=== PATIENT | female | born 1935 | race Caucasian/White ===

== ENCOUNTER 2016-02-16 12:41 | Emergency (ER) | payer MEDICARE ==
[~2016-02-16] VITALS: Ht 175.3 cm; Wt 89.4 kg
[~2016-02-16 12:41] MED LIST: ATEN25TA PO; DESV50TA PO; GLIP10TA20 PO; GLIP5TAB22 PO; HYDR-2762 PO; HYDR25TA9 PO; LEVO250T25 PO; METF10002 PO; PROAIR HFA8.5 GM INH
[2016-02-16 13:13] VITALS: BP 204/89
[2016-02-16] MEDS ORDERED: OXYCODONE/APAP 5/325 TABLET. PO ONE (13:45)
--- NOTE | 2016-02-16 14:29 | RAD ---
EXAM: Thoracic spine, 3 views. HISTORY: Fall. COMPARISON: CT dated 11/24/2015. FINDINGS: Frontal, lateral and swimmer's views of the thoracic spine are obtained. There is a severe T12 compression fracture, stable compared to the prior study. There is degenerative change throughout the thoracic spine. There are cardiac pacemaker leads in expected position. IMPRESSION: 1. Severe T12 compression fracture, stable in appearance. 2. Multilevel degenerative change.
--- NOTE | 2016-02-16 15:14 | ACF ---
Admission Forms Criteria Admission Criteria Met?: Yes AGUILA BRADY Feb 16, 2016 15:13
--- NOTE | 2016-02-16 15:40 | PHYS DOC ---
Past Medical History Past Medical History: CAD, Dementia, Diabetes-Type II, Hypertension Additional Past Medical Histor: Bradycardia Past Surgical History: Cholecystectomy, Hysterectomy, Pacemaker, Tubal ligation , Other Additional Past Surgical Histo: Pacemaker 2009, Hernia Alcohol Use: None Drug Use: Opiates Adult General Chief Complaint Chief Complaint: BACK PAIN OR INJURY HPI HPI 80-year-old female with chronic back pain who takes hydrocodone at home for pain presents with uncontrolled pain in her back. She states the hydrocodone just doesn't seem to be working. She states she is able to get around on her walker which is normal for her but it has been causing quite a bit more pain. She states she has a known compression fracture that's caused her a lot of problems. In fact, she is been hospitalized for this in the past. She denies any radicular symptoms. She has not had any bowel or bladder incontinence. [] Review of Systems Review of Systems Constitutional: Denies fever or chills [] Eyes: Denies change in visual acuity, redness, or eye pain [] HENT: Denies nasal congestion or sore throat [] Respiratory: Denies cough or shortness of breath [] Cardiovascular: No additional information not addressed in HPI [] GI: Denies abdominal pain, nausea, vomiting, bloody stools or diarrhea [] : Denies dysuria or hematuria [] Musculoskeletal: Per history of present illness] Integument: Denies rash or skin lesions [] Neurologic: Denies headache, focal weakness or sensory changes [] Endocrine: Denies polyuria or polydipsia [] Current Medications Current Medications Current Medications Medications (Trade) Dose Ordered Sig/[facility] Start Time Stop Time Status Last Admin Dose Admin Oxycodone/ Acetaminophen (Percocet 5/325) 2 tab 1X ONCE 02/16/16 13:45 02/16/16 13:46 DC 02/16/16 13:44 2 TAB Allergies Allergies Allergies Coded Allergies Type Severity Reaction Last Updated Verified No Known Drug Allergies 06/11/13 No Physical Exam Physical Exam Constitutional: Well developed, well nourished, mild to moderate distress, non- toxic appearance. [] HENT: Normocephalic, atraumatic, bilateral external ears normal, oropharynx moist, no oral exudates, nose normal. [] Eyes: PERRLA, EOMI, conjunctiva normal, no discharge. [] Neck: Normal range of motion, no tenderness, supple, no stridor. [] Cardiovascular:Heart rate regular rhythm, no murmur [] Lungs & Thorax: Bilateral breath sounds clear to auscultation [] Abdomen: Bowel sounds normal, soft, no tenderness, no masses, no pulsatile masses. [] Skin: Warm, dry, no erythema, no rash. [] Back: Mid back tenderness no crepitus no step-off. [] Extremities: No tenderness, no cyanosis, no clubbing, ROM intact, no edema. [] Neurologic: Alert and oriented X 3, normal motor function, normal sensory function, no focal deficits noted. [] Psychologic: Affect normal, judgement normal, mood normal. [] Current Patient Data Vital Signs Vital Signs Date Time Temp Pulse Resp B/P Pulse Ox O2 Delivery O2 Flow Rate FiO2 02/16/16 15:44 20 97 Room Air 02/16/16 13:13 98.4 73 204/89 98.4 EKG EKG [] Radiology/Procedures Radiology/Procedures [] Impressions: PROCEDURE: THORACIC SPINE 3V EXAM: Thoracic spine, 3 views. HISTORY: Fall. COMPARISON: CT dated 11/24/2015. FINDINGS: Frontal, lateral and swimmer's views of the thoracic spine are obtained. There is a severe T12 compression fracture, stable compared to the prior study. There is degenerative change throughout the thoracic spine. There are cardiac pacemaker leads in expected position. IMPRESSION: 1. Severe T12 compression fracture, stable in appearance. 2. Multilevel degenerative change. Course & Med Decision Making Course & Med Decision Making Pertinent Labs and Imaging studies reviewed. (See chart for details) [ED course: Evaluation reveals a 80-year-old female in mild to moderate distress secondary to back pain. Her hydrocodone was not working at home. I gave her 2 Percocet during her stay in the department here which she said made a remarkable difference and she feels a lot better. We discussed the possibility of staying in the hospital but she did not want to do that. I offered to provide her with some Percocet to take at home but she would need to follow up with her primary care physician for long-term alteration in her pain management plan.] Dragon Disclaimer Dragon Disclaimer This electronic medical record was generated, in whole or in part, using a voice recognition dictation system. Departure Departure Impression: Primary Impression: Chronic back pain greater than 3 months duration Additional Impression: Compression fracture of body of thoracic vertebra Disposition: 01 HOME, SELF-CARE Condition: IMPROVED Referrals: SANJIV DAVIS MD (PCP) Patient Instructions: Back Pain, Adult, Back, Compression Fracture, Chronic Back Pain Additional Instructions: Thank you for allowing us to participate in your care today. Followup with your primary care physician in 3 days if your symptoms do not improve. Return to the emergency department you have any new or concerning findings. This should be evaluated by the primary care physician and any necessary consulting services for continued management within a few days after discharge. Return to emergency room if you have any new or concerning symptoms including but not limited to fever, chills, nausea, vomiting, intractable pain, any new rashes, chest pain, shortness of air, uncontrolled bleeding, difficulty breathing, and/or vision loss. You may have been prescribed medication that can change in your level of thinking and ability to operate machinery. These medications include hydrocodone and Ativan. Also, Benadryl has been known to do this as well. Be sure to check with your pharmacist and ask if the medications you've prescribed can affect your level of consciousness. I recommend not operating heavy machinery or driving while on medication such as these. Scripts Oxycodone/Apap 5-325 (Percocet 5-325 Mg Tablet)1 Each Tablet1 Tab PO PRN Q6HRS PRN PAIN #30 TAB Prov:AZAEL HURTADO DO 02/16/16 Problem Qualifiers AZAEL HURTADO DO Feb 16, 2016 15:40
[2016-02-16] MEDS ORDERED: OXYC-323 PO (16:06)
== END 2016-02-16 16:25 | disposition home or self-care (01) ==
LOC: ER 12:41
DX: G89.29 Other chronic pain (principal); M48.54XG Collapsed vertebra, not elsewhere classified, thoracic region, subsequent encounter for fracture with delayed healing; I25.10 Atherosclerotic heart disease of native coronary artery without angina pectoris; I11.9 Hypertensive heart disease without heart failure; E11.9 Type 2 diabetes mellitus without complications; F11.10 Opioid abuse, uncomplicated; Z95.0 Presence of cardiac pacemaker
CPT/HCPCS: 72072; 99284

== ENCOUNTER 2016-04-12 09:29 | Inpatient (IN) | payer MEDICARE ==
[~2016-04-12] VITALS: Ht 172.7 cm; Wt 107.1 kg
[~2016-04-12 09:29] MED LIST changes: +HYDR-2868 PO; +OXYC-323 PO
[2016-04-12 10:40] VITALS: BP 120/63
--- NOTE | 2016-04-12 10:44 | PDOC ---
Infectious Disease Note Objective Assessment Left foot wound with exposed bone DM Edema HTN Debility Plan Plan of Care cbc, cmp, sed rate bone scan leg elevation meropenem and vanc TULIO MURILLO MD Apr 12, 2016 10:44
[2016-04-12] MEDS ORDERED: MEROPENEM 500 MG in IV NORMAL SALINE 50ML 50 ML IV ONE (11:00)
[2016-04-12] MEDS ORDERED: VANCOMYCIN 2 GM in IV NORMAL SALINE 500ML BAG 500 ML IV ONE (11:00)
[2016-04-12] MEDS ORDERED: ACETAMINOPHEN 325 MG TABLET. PO PRN (12:30)
[2016-04-12] MEDS ORDERED: DEXTROSE 50% 25 GM / 50ML DISP.SYRIN. IV PRN (12:30)
[2016-04-12] MEDS ORDERED: ONDANSETRON PF 4 MG/2 ML VIAL. IV PRN (12:30)
[2016-04-12 12:50] LABS: BASO % 1 % (0-3); EOS % 2 % (0-3); HEMATOCRIT 33.9 % (36.0-47.0); HEMOGLOBIN 10.5 g/dL (12.0-15.5); LYMPH # 1.5 x10^3/uL (1.0-4.8); LYMPH % 26 % (24-48); MEAN CORPUSCULAR HEMOGLOBIN 26 pg (25-35); MEAN CORPUSCULAR HGB CONC 31 g/dL (31-37); MEAN CORPUSCULAR VOLUME 84 fL (79-100); MONO % 6 % (0-9); NEUT % 65 % (31-73); PLATELET COUNT 286 x10^3/uL (140-400); RED BLOOD COUNT 4.04 x10^6/uL (3.50-5.40); RED CELL DISTRIBUTION WIDTH 17.8 % (11.5-14.5); WHITE BLOOD COUNT 5.9 x10^3/uL (4.0-11.0)
[2016-04-12] MEDS: HYDROCHLOROTHIAZIDE 25 MG TABLET PO SCH (13:00)
[2016-04-12] MEDS ORDERED: HYDRALAZINE 25 MG TABLET PO SCH (13:00)
[2016-04-12] MEDS: ATENOLOL 25 MG TABLET PO SCH (13:00)
[2016-04-12 13:13] LABS: ALBUMIN 2.7 g/dL (3.4-5.0); ALBUMIN/GLOBULIN RATIO 0.6 (1.0-1.7); CALCIUM 9.1 mg/dL (8.5-10.1); CREATININE 1.2 mg/dL (0.6-1.0); GFR 43.4; POTASSIUM 3.8 mmol/L (3.5-5.1); TOTAL BILIRUBIN 0.4 mg/dL (0.2-1.0); TOTAL PROTEIN 7.4 g/dL (6.4-8.2)
[2016-04-12] MEDS: VANCOMYCIN PER PHARMACY MC PRN (13:39)
[2016-04-12 15:06] VITALS: BP 122/59
--- NOTE | 2016-04-12 15:50 | RAD ---
3 phase bone scan of the feet 04/12/2016 Clinical history: Left foot wound for one month. The patient has diabetes. Technique: After the intravenous administration of 25.4 mCi of technetium 99m MDP, flow and immediate blood pool imaging of both feet and ankles was performed using the gamma camera. Delayed images were obtained at 3 hours. Findings: Comparison is made to radiographs of the left foot dated 04/05/2016. Increased flow and blood pool to the posterior aspect of the left foot is seen compared to the right. Increased activity is seen on the delayed images involving the posterior aspect of the left calcaneus. These bone scan findings are positive and are concerning for osteomyelitis. Impression: Positive 3 phase bone scan with abnormal activity seen involving the posterior aspect of the left calcaneus concerning for osteomyelitis.
[2016-04-12] MEDS: INSULIN ASPART 300 UNITS/3 ML INSULN.PEN SQ SCH (17:00)
--- NOTE | 2016-04-12 18:20 | CONS ---
DATE OF CONSULTATION: 04/12/2016 REFERRING PHYSICIAN: Dr. Art. REASON FOR CONSULTATION: Diabetic foot infection with exposed bone. HISTORY OF PRESENT ILLNESS: This is a 80-year-old female who evidently had fallen at home in November and to try to open the door, she had to drag herself because of rug bound to the foot. She was then admitted to the senior living facility and at some point there became a wound on the left calcaneum. Since then the wound has been progressively getting worse. She did not see anybody until a week ago. She came to the wound care center and then she again had a visit and was admitted for exposed bone. The patient denies any fever, denies any nausea, vomiting, diarrhea, chest pain, shortness of breath, abdominal pain, urinary symptoms or bowel symptoms. PAST MEDICAL HISTORY: Positive for diabetes mellitus, hypertension, debility. The patient has a history of arrhythmia with pacemaker in place. PAST SURGICAL HISTORY: Has had cholecystectomy, hysterectomy, hernia repair done and breast biopsies done. SOCIAL HISTORY: Negative for smoking, alcohol use, drug use. ALLERGIES: No known drug allergies, although she did develop rash after Augmentin that she received last week from Dr. Bashir. REVIEW OF SYSTEMS: As per HPI. All other systems reviewed and negative. CURRENT MEDICATIONS: Reviewed. PHYSICAL EXAMINATION: GENERAL: Alert, oriented female, not in any distress. VITAL SIGNS: Stable. HEENT: Both pupils are round and reactive. No conjunctival lesion. No lesion in the mouth. NECK: Supple, no JVD, no lymphadenopathy. LUNGS: Clear. HEART: S1, S2 regular. ABDOMEN: Benign. EXTREMITIES: 3+ pitting edema present bilaterally. The patient does have a wound on the left calcaneum with exposed bone with drainage from the wound. The patient does have a good dorsalis pedis palpable. NEUROLOGIC: Intact, although very weak and debilitated. LABORATORY DATA: Last laboratory data were from November. X-ray done few days ago of the foot, which was unremarkable for any obvious osteomyelitis. Laboratory data today's are pending. IMPRESSION: 1. Left calcaneal infected wound with exposed bone. 2. Diabetes. 3. Hypertension. 4. Bilateral 3+ pitting edema. 5. Noncompliance. PLAN: Recommend we would get CBC, CMP, sed rate, BNP, start on vancomycin and meropenem. Supportive care, off load. Since cannot do MRI because of the pacemaker, we may do CT or bone scan and will continue to follow. Detailed discussion done with the patient and the patient's daughter at the bedside. Thank you very much, Dr. Art for giving me the opportunity to participate in this patient's care. TULIO MURILLO MD DR: JESÚS/yuri JOB#: [id number] / [id number]
[2016-04-12] MEDS: GLIPIZIDE ER 5 MG TAB.ER.24 PO SCH (18:28)
[2016-04-12] MEDS: METFORMIN 1,000 MG TABLET PO SCH (18:28)
--- NOTE | 2016-04-12 18:32 | PDOC ---
Provider Note Provider Note See admission H&P dictation #[id number] Impression: 1. Left calcaneal osteomyelitis: 2. DM2 with neuropathy: 3. Hypertension: SANJIV DAVIS MD Apr 12, 2016 18:32
[2016-04-12 19:20] VITALS: BP 159/73
[2016-04-12] MEDS: MEROPENEM 500 MG in IV NORMAL SALINE 50ML 50 ML IV SCH (22:01)
[2016-04-12 23:01] VITALS: BP 150/74
[2016-04-13] VITALS (13 sets, daily range): BP systolic 109–161; BP diastolic 41–77
[2016-04-13] MEDS: MEROPENEM 500 MG in IV NORMAL SALINE 50ML 50 ML IV SCH ×3 (05:53→20:52)
[2016-04-13] MEDS: HYDROCODONE/APAP 5/325MG TABLET. PO PRN ×2 (06:10→18:37)
--- NOTE | 2016-04-13 08:01 | PDOC ---
TCOM NOTE This is transcutaneous oximetry assessment on patient Savanna Jara performed on 04/12 This is a 80-year-old patient admitted from the wound care center for diabetic Lawrence 3 ulceration to the left hindfoot with clinical evidence of osteomyelitis. Transcutaneous oximetry is performed in the hospital bed. Patient reports no significant dyspnea. She is not on supplemental O2. Past medical history positive for diabetes with neuropathy, hypertension and history of arrhythmia Past surgical history includes cholecystectomy, hysterectomy, hernia repair and pacemaker placement. Social history negative for tobacco, alcohol or drug use. Medications and allergies as noted and reviewed in the chart. Vital signs were noted be stable at the time of oximetry assessment. Respirations were noted be nondistressed and heart rhythm regular. Lower extremities did note pretibial edema. Transcutaneous oximetry assessment leads were placed as follows: Leads 1 and 4 are placed laterally and medially at hindfoot infra malleolar locations, respectively. Leads 2 and 5 are placed at posterior ankle malleolar locations, laterally and medially, respectively. Leads 3 and 6 are placed at supramalleolar sites laterally and medially, respectively. Transcutaneous oximetry measurements while breathing room air at 1 yasmine are as follows: Lead #1 is 42 mmHg Lead #2 is 37 mmHg Lead #3 is 31 mmHg Lead $4 is 30 mmHg Lead #5 is 52 mmHg Lead #6 is 51 mmHg Transcutaneous oximetry measurements while breathing 100% oxygen at 1 yasmine are as follows: Lead #1 172 mmHg Lead #2 is 201 mmHg Lead #3 is 75 mmHg Lead #4 is 223 mmHg Lead #5 is 165 mmHg Lead #6 is 81 mmHg Transcutaneous oximetry measurements greater than 40 mmHg are considered adequate for wound healing. In this patient 3 of the 6 leads are less than 40 mmHg. Oxygen augmented readings in excess of 100 mm or mercury suggest positive benefits from adjunctive utilization of hyperbaric oxygen therapy. In this patient for the 6 leads demonstrated values in excess of 100 mm or mercury. These readings suggests patient's vascular status is tenuous to achieve wound healing and efforts to maximize blood flow are critical. If the patient does not demonstrate improvement then utilization of hyperbaric oxygen therapy is appropriate and may be necessary to achieve healing. LORNA ACHARYA DO Apr 13, 2016 08:01
--- NOTE | 2016-04-13 08:22 | PDOC ---
SUBJECTIVE Subjective Still with some left heel pain. Feeling better overall. Denies any shortness of breath. Still having loose stools. OBJECTIVE Vital Signs Vital Signs Date Time Temp Pulse Resp B/P Pulse Ox O2 Delivery O2 Flow Rate FiO2 04/13/16 07:00 98.0 72 18 128/65 91 Room Air 98.0 04/13/16 06:10 16 Room Air 04/13/16 03:03 97.7 69 18 161/77 96 Room Air 97.7 04/12/16 23:01 97.7 68 18 150/74 96 Room Air 97.7 04/12/16 20:00 Room Air 04/12/16 19:20 98.6 80 18 159/73 98 Room Air 98.6 04/12/16 15:06 97.5 69 16 122/59 91 Room Air 97.5 04/12/16 11:37 97.5 97.5 04/12/16 10:40 97.5 64 16 120/63 99 Room Air 97.5 04/12/16 10:40 97.5 64 16 120/63 99 Room Air 97.5 I & O Intake and Output 04/13/16 07:00 Intake Total 200 ml Output Total 300 ml Balance -100 ml Intake Oral 200 ml Output Urine Total 300 ml # Voids 4 # Bowel Movements 4 PHYSICAL EXAM Physical Exam General: No acute distress. Laying in bed. Mental status: Alert and oriented. Chest: Air movement: good. Auscultation: clear throughout Cardiovascular: Rate: normal. Rhythm: regular. Murmur: none. Abdomen: Bowel sounds: normal. Soft. Nondistended. Tenderness: nontender to palpation. No guarding. No rebound. Extremities: Positive pitting edema bilateral lower extremities. The left heel has a bandage on it. She is in a heel protector. There is less redness to the foot. ASSESSMENT/PLAN Assessment/Plan 1. Left calcaneal osteomyelitis: Vascular surgery consult for debridement. Bone scan showed osteomyelitis. Continue antibiotics per infectious disease. 2. DM2: Continue sliding scale insulin and home medications. Add Levemir 5 units this evening. 3. Hypertension: Remains elevated. We'll adjust medications. Add losartan. 4. Low back pain: Stable. 5. Lower extremity edema. Elevated BNP. We'll give Lasix IV to try and help with diuresis. 6. Diarrhea. C. difficile was negative. Start probiotic as she was on antibiotics recently. Problems: COMMENT Lab Laboratory Tests Test 04/12/16 10:54 04/12/16 12:30 04/12/16 12:35 04/12/16 16:46 Glucose (Fingerstick) 166mg/dL (70-99) 182mg/dL (70-99) Clostridium difficile Toxin (PCR) Negative (Negative) White Blood Count 5.9x10^3/uL (4.0-11.0) Red Blood Count 4.04x10^6/uL (3.50-5.40) Hemoglobin 10.5g/dL (12.0-15.5) Hematocrit 33.9% (36.0-47.0) Mean Corpuscular Volume 84fL (79-100) Mean Corpuscular Hemoglobin 26pg (25-35) Mean Corpuscular Hemoglobin Concent 31g/dL (31-37) Red Cell Distribution Width 17.8% (11.5-14.5) Platelet Count 286x10^3/uL (140-400) Neutrophils (%) (Auto) 65% (31-73) Lymphocytes (%) (Auto) 26% (24-48) Monocytes (%) (Auto) 6% (0-9) Eosinophils (%) (Auto) 2% (0-3) Basophils (%) (Auto) 1% (0-3) Neutrophils # (Auto) 3.8x10^3uL (1.8-7.7) Lymphocytes # (Auto) 1.5x10^3/uL (1.0-4.8) Monocytes # (Auto) 0.4x10^3/uL (0.0-1.1) Eosinophils # (Auto) 0.1x10^3/uL (0.0-0.7) Basophils # (Auto) 0.0x10^3/uL (0.0-0.2) Erythrocyte Sedimentation Rate 57 (0-25) Sodium Level 140mmol/L (136-145) Potassium Level 3.8mmol/L (3.5-5.1) Chloride Level 104mmol/L (98-107) Carbon Dioxide Level 29mmol/L (21-32) Anion Gap 7 (6-14) Blood Urea Nitrogen 28mg/dL (7-20) Creatinine 1.2mg/dL (0.6-1.0) Estimated GFR (Cockcroft-Gault) 43.4 BUN/Creatinine Ratio 23 (6-20) Glucose Level 157mg/dL (70-99) Calcium Level 9.1mg/dL (8.5-10.1) Total Bilirubin 0.4mg/dL (0.2-1.0) Aspartate Amino Transf (AST/SGOT) 22U/L (15-37) Alanine Aminotransferase (ALT/SGPT) 12U/L (14-59) Alkaline Phosphatase 145U/L (46-116) MC-Pxi-S-Type Natriuretic Peptide 11583sd/mL (0-449) Total Protein 7.4g/dL (6.4-8.2) Albumin 2.7g/dL (3.4-5.0) Albumin/Globulin Ratio 0.6 (1.0-1.7) Test 04/12/16 20:39 04/13/16 07:35 Glucose (Fingerstick) 208mg/dL (70-99) 155mg/dL (70-99) SANJIV DAVIS MD Apr 13, 2016 08:22
--- NOTE | 2016-04-13 08:38 | PDOC ---
Infectious Disease Note Subjective Subjective feeling better, leg elevation helping with swelling ROS ROS GEN: Denies fevers, chills, sweats HEENT: Denies blurred vision, sore throat CV: Denies chest pain RESP: Denies shortness of air, cough GI: Denies n/v/d NEURO: Denies confusion, dizziness MSK: Denies weakness, Vital Sign Vital Signs Vital Signs Date Time Temp Pulse Resp B/P Pulse Ox O2 Delivery O2 Flow Rate FiO2 04/13/16 07:00 98.0 72 18 128/65 91 Room Air 98.0 Physical Exam PHYSICAL EXAM GENERAL: NAD, Alert HEENT: PERRL, OC/OP NECK: Supple, no JVD, no LN LUNGS: Clear HEART: S1S2, no gallop, no murmur ABD: Soft, NT, no organomegaly, no rebound EXT: edema, no cyanosis,, left calcaneal wound with exposed bone [employer]PER[employer]OR [employer]OS[employer] PROCESSING: Alert, oriented x 3, no focal neurologic deficit SKIN: No rash IV: ok Labs Lab Laboratory Tests Test 04/12/16 10:54 04/12/16 12:30 04/12/16 12:35 04/12/16 16:46 Glucose (Fingerstick) 166mg/dL (70-99) 182mg/dL (70-99) Clostridium difficile Toxin (PCR) Negative (Negative) White Blood Count 5.9x10^3/uL (4.0-11.0) Red Blood Count 4.04x10^6/uL (3.50-5.40) Hemoglobin 10.5g/dL (12.0-15.5) Hematocrit 33.9% (36.0-47.0) Mean Corpuscular Volume 84fL (79-100) Mean Corpuscular Hemoglobin 26pg (25-35) Mean Corpuscular Hemoglobin Concent 31g/dL (31-37) Red Cell Distribution Width 17.8% (11.5-14.5) Platelet Count 286x10^3/uL (140-400) Neutrophils (%) (Auto) 65% (31-73) Lymphocytes (%) (Auto) 26% (24-48) Monocytes (%) (Auto) 6% (0-9) Eosinophils (%) (Auto) 2% (0-3) Basophils (%) (Auto) 1% (0-3) Neutrophils # (Auto) 3.8x10^3uL (1.8-7.7) Lymphocytes # (Auto) 1.5x10^3/uL (1.0-4.8) Monocytes # (Auto) 0.4x10^3/uL (0.0-1.1) Eosinophils # (Auto) 0.1x10^3/uL (0.0-0.7) Basophils # (Auto) 0.0x10^3/uL (0.0-0.2) Erythrocyte Sedimentation Rate 57 (0-25) Sodium Level 140mmol/L (136-145) Potassium Level 3.8mmol/L (3.5-5.1) Chloride Level 104mmol/L (98-107) Carbon Dioxide Level 29mmol/L (21-32) Anion Gap 7 (6-14) Blood Urea Nitrogen 28mg/dL (7-20) Creatinine 1.2mg/dL (0.6-1.0) Estimated GFR (Cockcroft-Gault) 43.4 BUN/Creatinine Ratio 23 (6-20) Glucose Level 157mg/dL (70-99) Calcium Level 9.1mg/dL (8.5-10.1) Total Bilirubin 0.4mg/dL (0.2-1.0) Aspartate Amino Transf (AST/SGOT) 22U/L (15-37) Alanine Aminotransferase (ALT/SGPT) 12U/L (14-59) Alkaline Phosphatase 145U/L (46-116) GZ-Fcf-G-Type Natriuretic Peptide 53781ri/mL (0-449) Total Protein 7.4g/dL (6.4-8.2) Albumin 2.7g/dL (3.4-5.0) Albumin/Globulin Ratio 0.6 (1.0-1.7) Test 04/12/16 20:39 04/13/16 07:35 Glucose (Fingerstick) 208mg/dL (70-99) 155mg/dL (70-99) Objective Assessment Left foot wound with exposed bone DM Edema HTN Debility Plan Plan of Care cbc, cmp, sed rate bone scan + leg elevation meropenem and vanc TUILO MURILLO MD Apr 13, 2016 08:38
[2016-04-13] MEDS: HYDROCHLOROTHIAZIDE 25 MG TABLET PO SCH (08:48)
[2016-04-13] MEDS: GLIPIZIDE ER 5 MG TAB.ER.24 PO SCH ×2 (08:49→18:34)
[2016-04-13] MEDS: LOSARTAN POTASSIUM 50 MG TABLET. PO SCH (08:49)
[2016-04-13] MEDS: METFORMIN 1,000 MG TABLET PO SCH ×2 (08:49→18:33)
[2016-04-13] MEDS: FUROSEMIDE 20 MG/2 ML VIAL IVP SCH (08:49)
[2016-04-13] MEDS: HYDRALAZINE 25 MG TABLET PO SCH ×2 (08:55→20:47)
[2016-04-13] MEDS: ATENOLOL 25 MG TABLET PO SCH (08:55)
[2016-04-13] MEDS: INSULIN ASPART 300 UNITS/3 ML INSULN.PEN SQ SCH ×3 (09:08→17:00)
[2016-04-13] MEDS: ASCORBIC ACID 500 MG TABLET PO SCH ×2 (11:00→20:52)
[2016-04-13] MEDS: MULTIVITAMIN with MINERAL TABLET. PO SCH (11:00)
--- NOTE | 2016-04-13 11:33 | PDOC ---
Provider Note Provider Note Vascular Consult dictated Imp: Traumatic lt heel ulcer Intact arterial circulation Plan: Debride today ANJALI MOJICA MD Apr 13, 2016 11:33
[2016-04-13] MEDS: VANCOMYCIN 1.75 GM in IV NORMAL SALINE 500ML BAG 500 ML IV SCH (13:27)
[2016-04-13] MEDS ORDERED: SURGICEL FIBRILLAR 1X2 EACH. ONE (13:53)
[2016-04-13] MEDS ORDERED: LIDOCAINE 1% PF 30 ML VIAL. ONE (13:53)
[2016-04-13] MEDS ORDERED: IV RINGERS,LACTATED 1000ML 1,000 ML IV SCH (13:58)
[2016-04-13] MEDS ORDERED: LIDOCAINE 1% 1 ML SYRINGE. ID PRN (14:00)
[2016-04-13] MEDS ORDERED: FENTANYL PF 100 MCG/2 ML VIAL. IV PRN (14:00)
[2016-04-13] MEDS ORDERED: MORPHINE SULFATE 2 MG/ML DISP.SYRIN. IV PRN (14:00)
[2016-04-13] MEDS ORDERED: PROCHLORPERAZINE 10 MG/2 ML VIAL. IV PRN (14:00)
[2016-04-13] MEDS ORDERED: HYDROMORPHONE 2 MG/ML VIAL. IV PRN (14:00)
[2016-04-13] MEDS ORDERED: ONDANSETRON PF 4 MG/2 ML VIAL. IV PRN (14:00)
--- NOTE | 2016-04-13 14:45 | CONS ---
DATE OF CONSULTATION: 04/12/2016 ORTHOPEDIC CONSULTATION REASON FOR CONSULTATION: Left foot osteomyelitis. REFERRING PHYSICIAN: Dr. Art. HISTORY OF PRESENT ILLNESS: The patient is a 80-year-old female who has history of a fall and had to apparently drag herself along the ground to try to open her door and get help. She was subsequently admitted to a [place] [facility] facility and developed a wound on her left heel. This has been going on a couple of months and getting worse. She presented to the wound clinic recently and was admitted yesterday for severe tissue loss on her left heel and exposed bone. She denies any recent fever, chills or constitutional symptoms and indicates that she has been recently using a cushion to keep any pressure off the left heel. PAST MEDICAL HISTORY: Significant for diabetes mellitus, hypertension, and arrhythmias. PAST SURGICAL HISTORY: Significant for pacemaker implantation, cholecystectomy, hysterectomy, hernia repair and previous breast biopsies. ALLERGIES: NO ABSOLUTE MEDICATION ALLERGIES, BUT DOES INDICATE A RASH FROM AUGMENTIN. MEDICATIONS: List is reviewed. REVIEW OF SYSTEMS: Denies any focal weakness, numbness, tingling or radiating pain to the extremities, joint pain or swelling, instability. Denies any fever, chills, chest pain, shortness of breath, change in bowel or bladder habits. PHYSICAL EXAMINATION: EXTREMITIES: Examination of the left foot reveals a silver-dollar sized area of skin breakdown over the posterior aspect of the left heel becoming successively more deep at the central areas where there is exposed bone present. There is some devitalized tissue in the wound bed overall. She does seem to have warm distal extremities, but there is significant pitting edema present in the extremities and a palpable dorsalis pedis pulse. She has normal hindfoot, midfoot and forefoot motion bilaterally. Normal examination of the contralateral foot and ankle with intact sensation present in both lower extremities throughout. Good hip and ankle range of motion, alignment and stability bilaterally as well. IMAGING: Bone scan obtained today does show concern for osteomyelitis in the left calcaneus. X-rays from several days ago do not show any obvious bony abnormality. IMPRESSION: Left calcaneus wound with exposed bone centrally, diabetes and leg swelling with pitting edema. TREATMENT PLAN: Certainly, she needs and is receiving pressure relief from the central aspect of her wound and I would expect it needs debridement of the area and ongoing wound care. Although she does have palpable pulses, I am somewhat concerned with her capability vascularly as far as healing, if that can be approved in anyway particularly because tissue coverage over this area is going to be quite difficult to reinstate either by ingrowth or surgically. Nevertheless, there is really no further vascular intervention indicated. I think we would proceed with debridement and probable use of a wound VAC to see if we can get some tissue to granulate over the area of the heel. I did tell her, however, this is a very difficult problem to achieve healing this area especially with the bony infection and just no good way to try to achieve tissue coverage other than very slowly with careful control of her diabetes and avoidance of pressure on the wound. All of her questions were answered at this time. We will just await any further vascular evaluation and possible surgical debridement of the left heel. SHALINI MACDONALD MD DR: POOJA/yuri JOB#: [id number] / [id number]
[2016-04-13] MEDS ORDERED: PROPOFOL 20 ML IV ONE (15:02)
[2016-04-13] MEDS ORDERED: LIDOCAINE 2% 100 MG/5 ML DISP.SYRIN. ONE (15:02)
[2016-04-13] MEDS ORDERED: SEVOFLURANE 16 TO 30 MINUTES. IH ONE (15:29)
[2016-04-13] MEDS ORDERED: ONDANSETRON PF 4 MG/2 ML VIAL. ONE (15:39)
--- NOTE | 2016-04-13 16:20 | PDOC ---
BRIEF OPERATIVE NOTE Date: Apr 13, 2016 Pre-Op Diagnosis Left heel open wound with osteomyelitis Post-Op Diagnosis SAme Procedure Performed Left heel excision debridement of skin, soft tissue, and bone Surgeon Dr. Esparza Cancer Program Director none Anesthesia Type: General Blood Loss 25 cc Specimens Obtained Culture of the left calcaneous Findings Debrided to healthy soft tissue and bone, good bleeding noted from skin edges. Wound size: 5 x 6 x 1.5 cm Complications none YARIEL ESPARZA MD Apr 13, 2016 16:20
[2016-04-13] MEDS: FENTANYL PF 100 MCG/2 ML VIAL. IV PRN ×2 (16:29→17:07)
[2016-04-13] MEDS: LACTOBACILLUS ACIDOPH & BULGAR 1 TABLET. PO SCH (18:33)
[2016-04-13 19:24] LABS: CALCIUM 8.5 mg/dL (8.5-10.1); CREATININE 1.2 mg/dL (0.6-1.0); GFR 43.4; POTASSIUM 3.4 mmol/L (3.5-5.1)
--- NOTE | 2016-04-13 20:52 | OP ---
DATE OF SURGERY: 04/13/2016 PREOPERATIVE DIAGNOSIS: Osteomyelitis of the left heel. POSTOPERATIVE DIAGNOSIS: Osteomyelitis of the left heel. PROCEDURE: Excisional debridement of the left heel, including skin soft tissue, and bone. SURGEON: Tanner Esparza M.D. ANESTHESIA: General anesthesia with LMA. INDICATION: The patient is a 80-year-old female, who has had a history of a fall and subsequent wound to the left heel. She has been undergoing local wound care over the past several months, but the wound is not healing and there was exposed bone. A bone scan demonstrated concern for osteomyelitis. She did have a palpable pulse. The patient agreed to debridement of the left heel wound. DESCRIPTION OF PROCEDURE: Consent was obtained prior to taking the patient to the operating room. The patient was taken to the operating room and remained on her hospital bed. The left lower leg was prepped and draped in the standard sterile fashion with Betadine. Anesthesia intubated the patient and provided anesthesia with LMA. Preoperative antibiotics were given. A timeout was performed to verify the correct patient and procedure. Soft tissue was incised around the portion of the left heel ulcer. Soft tissue and muscle were removed with sharp debridement using a 10 blade. The soft tissue was resected back until there was bleeding noted. A rongeur was used to remove part of the calcaneus. The section of the bone was also sent for culture. The bone and the tissue was debrided back until there was healthy-appearing tissue, although there was some concern for infection tracking along her tendon. The wound was thoroughly irrigated with antibiotic solution. Electrocautery was used to obtain hemostasis. The wound was then packed with Xeroform, gauze, and then wrapped with an Carlos wrap and Kerlix. All sponge, instrument, and needle counts were accurate. The patient was extubated and taken to the PACU for further recovery. FINDINGS: The wound was debrided back to healthy tissue and healthy bone. The size of the defect was approximately 5 x 6 x 1.5 cm with 1.5 cm in depth. COMPLICATIONS: None. DRAINS: None. ESTIMATED BLOOD LOSS: 25 mL. TANNER ESPRAZA MD DR: CELSO/yuri JOB#: [id number] / [id number] MTDD
[2016-04-13] MEDS: INSULIN DETEMIR 300 UNITS/3 ML INSULN.PEN. SQ SCH (21:02)
[2016-04-14] MEDS: HYDROCODONE/APAP 5/325MG TABLET. PO PRN ×4 (02:34→19:33)
[2016-04-14 03:00] VITALS: BP 152/56
--- NOTE | 2016-04-14 04:53 | CONS ---
DATE OF CONSULTATION: 04/13/2016 DIAGNOSIS: Traumatic, necrotic ulcer, left heel. HISTORY OF PRESENT ILLNESS: This is a 80-year-old female who fell and then she was dragging herself across her floor. She injured and developed a sore on her left heel, which has not healed and became necrotic. She was admitted for further care. The patient gives no prior history of arterial interventions. She has no history of claudication. Not a diabetic. She has not had bypass surgery; I believe she does have a pacemaker. No history of stroke. Nonsmoker. MEDICATIONS: See reconciliation list. PHYSICAL EXAMINATION: GENERAL: Pleasant female, in no severe distress, who is alert and oriented, 2+ radial pulses. CARDIOVASCULAR: Heart rate is regular, nonlabored respirations. EXTREMITIES: She has easily palpable dorsalis pedis pulses bilaterally. No sores on the right foot. She has got a necrotic ulcer on the posterior aspect of the left heel. IMPRESSION: Necrotic ulcer, traumatic, left heel. PLAN: Debridement later today by Dr. Esparza. ANJALI MOJICA MD DR: KIEL/yuri JOB#: [id number] / [id number]
[2016-04-14] MEDS: MEROPENEM 500 MG in IV NORMAL SALINE 50ML 50 ML IV SCH ×3 (05:59→21:30)
[2016-04-14 07:00] VITALS: BP 130/60
[2016-04-14] MEDS: GLIPIZIDE ER 5 MG TAB.ER.24 PO SCH ×2 (08:00→17:00)
[2016-04-14] MEDS: INSULIN ASPART 300 UNITS/3 ML INSULN.PEN SQ SCH ×3 (08:00→17:00)
[2016-04-14] MEDS: LACTOBACILLUS ACIDOPH & BULGAR 1 TABLET. PO SCH ×3 (08:30→17:46)
[2016-04-14] MEDS: ASCORBIC ACID 500 MG TABLET PO SCH ×2 (08:30→21:00)
[2016-04-14] MEDS: MULTIVITAMIN with MINERAL TABLET. PO SCH (08:31)
[2016-04-14] MEDS: METFORMIN 1,000 MG TABLET PO SCH ×2 (08:31→17:45)
[2016-04-14] MEDS: HYDRALAZINE 25 MG TABLET PO SCH ×2 (08:32→21:29)
[2016-04-14] MEDS: LOSARTAN POTASSIUM 50 MG TABLET. PO SCH (08:32)
[2016-04-14] MEDS: HYDROCHLOROTHIAZIDE 25 MG TABLET PO SCH (08:33)
[2016-04-14] MEDS: FUROSEMIDE 20 MG/2 ML VIAL IVP SCH (08:33)
[2016-04-14] MEDS: ATENOLOL 25 MG TABLET PO SCH (08:33)
--- NOTE | 2016-04-14 08:34 | PDOC ---
SUBJECTIVE Subjective Having a little bit of pain but overall better in the left heel. Denies any shortness of breath. Still with loose stools. Eating okay. No blood in her stools. OBJECTIVE Vital Signs Vital Signs Date Time Temp Pulse Resp B/P Pulse Ox O2 Delivery O2 Flow Rate FiO2 04/14/16 07:29 18 Room Air 04/14/16 07:00 97.3 54 16 130/60 90 Room Air 97.3 04/14/16 06:29 18 Room Air 04/14/16 03:00 98.5 65 18 152/56 92 Room Air 98.5 04/14/16 02:34 18 Room Air 04/13/16 23:00 97.3 62 18 135/67 93 Room Air 97.3 04/13/16 21:00 63 18 146/66 95 Room Air 04/13/16 20:47 51 135/82 04/13/16 20:00 74 18 111/72 95 Room Air 04/13/16 19:59 Room Air 04/13/16 19:30 59 18 109/41 91 Room Air 04/13/16 19:00 70 18 128/60 91 Room Air 04/13/16 18:37 18 Room Air 04/13/16 18:30 98.0 71 18 125/62 92 Room Air 98.0 04/13/16 18:15 55 18 112/45 92 Room Air 04/13/16 18:00 63 18 144/66 90 Room Air 04/13/16 17:45 58 18 125/63 92 Room Air 04/13/16 17:30 98.1 60 18 128/61 95 Room Air 98.1 04/13/16 17:07 16 Nasal Cannula 04/13/16 16:54 56 18 125/60 98 Room Air 04/13/16 16:53 16 99 Nasal Cannula 2.0 04/13/16 16:40 96 Nasal Cannula 2.0 04/13/16 16:39 54 16 113/59 98 Room Air 04/13/16 16:29 16 92 Simple Mask 04/13/16 16:24 54 16 91/50 96 Room Air 04/13/16 16:18 58 16 112/52 100 Room Air 04/13/16 16:04 97.2 59 16 116/49 96 Simple Mask 10 97.2 04/13/16 14:17 98.1 66 10 174/74 95 Room Air 98.1 04/13/16 11:00 97.9 60 18 137/57 95 Room Air 97.9 04/13/16 08:55 72 128/65 04/13/16 08:55 72 128/65 04/13/16 08:49 72 128/65 I & O Intake and Output 04/14/16 07:00 Intake Total 900 ml Balance 900 ml Intake Oral 0 ml Other 900 ml # Voids 2 PHYSICAL EXAM Physical Exam General: No acute distress. Laying in bed. Mental status: Alert and oriented. Chest: Air movement: good. Auscultation: clear throughout Cardiovascular: Rate: normal. Rhythm: regular. Murmur: none. Abdomen: Bowel sounds: normal. Soft. Nondistended. Tenderness: nontender to palpation. No guarding. No rebound. Extremities: 1+ pitting edema bilateral lower extremities. The left heel has a dressing on it. She is in a heel protector. There is less redness to the foot. ASSESSMENT/PLAN Assessment/Plan 1. Left calcaneal osteomyelitis: Postop day #1 status post debridement. Continue per vascular surgery and infectious disease. She'll need 6 weeks of IV antibiotics. Discussed with Dr. Marroquin. She'll also likely need placement in longterm for wound care and IV antibiotics. PICC line. 2. DM2: Continue sliding scale insulin and home medications. Add Levemir 5 units in the evening. May need to increase. She's been resistant to using home insulin in the past. 3. Hypertension: Continue to monitor and make adjustments as needed.. Added losartan. 4. Low back pain: Stable. 5. Lower extremity edema. Elevated BNP. We'll give Lasix IV to try and help with diuresis. Continue to monitor electrolytes. 6. Diarrhea. C. difficile was negative. Start probiotic as she was on antibiotics recently. May need to start something like Questran to help with the diarrhea. 7. Disposition: Patient will likely need longterm. She could possibly go tomorrow if arrangements can be made. Problems: COMMENT Lab Laboratory Tests Test 04/13/16 11:03 04/13/16 16:34 04/13/16 19:00 04/13/16 20:57 Glucose (Fingerstick) 159mg/dL (70-99) 87mg/dL (70-99) 132mg/dL (70-99) Sodium Level 143mmol/L (136-145) Potassium Level 3.4mmol/L (3.5-5.1) Chloride Level 106mmol/L (98-107) Carbon Dioxide Level 28mmol/L (21-32) Anion Gap 9 (6-14) Blood Urea Nitrogen 28mg/dL (7-20) Creatinine 1.2mg/dL (0.6-1.0) Estimated GFR (Cockcroft-Gault) 43.4 Glucose Level 116mg/dL (70-99) Calcium Level 8.5mg/dL (8.5-10.1) Test 04/14/16 07:31 04/14/16 07:57 Glucose (Fingerstick) 64mg/dL (70-99) 79mg/dL (70-99) SANJIV DAVIS MD Apr 14, 2016 08:34
--- NOTE | 2016-04-14 08:48 | PDOC ---
Infectious Disease Note Subjective Subjective feeling better, leg elevation helping with swelling ROS ROS GEN: Denies fevers, chills, sweats HEENT: Denies blurred vision, sore throat CV: Denies chest pain RESP: Denies shortness of air, cough GI: Denies n/v/d NEURO: Denies confusion, dizziness MSK: Denies weakness, joint pain/swelling Vital Sign Vital Signs Vital Signs Date Time Temp Pulse Resp B/P Pulse Ox O2 Delivery O2 Flow Rate FiO2 04/14/16 08:33 130/60 04/14/16 08:32 54 04/14/16 07:29 18 Room Air 04/14/16 07:00 97.3 90 97.3 04/13/16 16:53 2.0 Physical Exam PHYSICAL EXAM GENERAL: NAD, Alert HEENT: PERRL, OC/OP NECK: Supple, no JVD, no LN LUNGS: Clear HEART: S1S2, no gallop, no murmur ABD: Soft, NT, no organomegaly, no rebound EXT: No edema, no cyanosis DOCUMENT REVIEWER: Alert, oriented x 3, no focal neurologic deficit SKIN: No rash IV: ok Labs Lab Laboratory Tests Test 04/13/16 11:03 04/13/16 16:34 04/13/16 19:00 04/13/16 20:57 Glucose (Fingerstick) 159mg/dL (70-99) 87mg/dL (70-99) 132mg/dL (70-99) Sodium Level 143mmol/L (136-145) Potassium Level 3.4mmol/L (3.5-5.1) Chloride Level 106mmol/L (98-107) Carbon Dioxide Level 28mmol/L (21-32) Anion Gap 9 (6-14) Blood Urea Nitrogen 28mg/dL (7-20) Creatinine 1.2mg/dL (0.6-1.0) Estimated GFR (Cockcroft-Gault) 43.4 Glucose Level 116mg/dL (70-99) Calcium Level 8.5mg/dL (8.5-10.1) Test 04/14/16 07:31 04/14/16 07:57 Glucose (Fingerstick) 64mg/dL (70-99) 79mg/dL (70-99) Objective Assessment Left foot wound with exposed bone s/p I and D DM Edema HTN Debility Plan Plan of Care picc leg elevation meropenem and vanc TULIO MURILLO MD Apr 14, 2016 08:48
--- NOTE | 2016-04-14 09:53 | HP ---
ADMIT DATE: 04/12/2016 ATTENDING PHYSICIAN: Dr. Sanjiv Davis. CHIEF COMPLAINT: Left heel ulcer with probable osteomyelitis. HISTORY OF PRESENT ILLNESS: The patient is a 80-year-old female who has had a pressure sore on her left posterior heel for the last couple of months. She was being seen in wound care and had an appointment on the day of admission when debridement was done at that time, it was noted that the wound extended down to the bone of the calcaneus posteriorly at the heel. Due to the infection extending to the bone, it was decided she needed to be admitted for probable osteomyelitis to receive definitive treatment as well as IV antibiotics. She denies any fevers. She does have some pain in the area, but generally has decreased feeling in her feet. She has had slightly more increased swelling in the lower legs. PAST MEDICAL HISTORY: Significant for hypertension, osteoarthritis, diabetes mellitus type 2, which is poorly controlled, depression, nocturnal hypoxia, diabetic neuropathy. PAST SURGICAL HISTORY: Pacemaker placement, cholecystectomy, hysterectomy, hernia repair, bilateral breast biopsies, tubal ligation. SOCIAL HISTORY: The patient has smoked remotely in the past and did not smoke for a very long time. She last smoked approximately 50 years ago. She denies any alcohol or illicit drug use. She lives at home. She does have a sister who is helping out with care at times. FAMILY HISTORY: Heart disease in her mother and father. ALLERGIES TO MEDICATIONS: SHE IS ALLERGIC TO AUGMENTIN. MEDICATIONS: At the time of admission include; albuterol HFA 2 puffs q.i.d. p.r.n., atenolol 25 mg p.o. daily, glipizide extended release 10 mg p.o. b.i.d., hydralazine 25 mg p.o. daily, hydrochlorothiazide 25 mg p.o. daily, Empire 7.5/325 one p.o. every 6 hours p.r.n., metformin 1000 mg p.o. b.i.d. REVIEW OF SYSTEMS: The patient denies any fevers. No difficulty swallowing. She denies any cough or shortness of breath. She denies any chest pain or palpitations. She denies any nausea, vomiting. She has chronic diarrhea that is unchanged. There is no blood in the stool. She denies any dysuria or hematuria. She has lower extremity swelling, which is chronic for her. She has noted some red zurita on her lower legs over the last couple of weeks. There is no generalized redness. She does have some pain in the left lower leg/foot. Her mood has been stable without anti-depressive medications. PHYSICAL EXAMINATION: VITAL SIGNS: At the time of admission, temperature 97.5, pulse 64, respiratory rate 16, blood pressure 120/63, O2 sat 99% on room air. GENERAL: The patient is well developed, nourished female in no acute distress. She is alert and oriented. HEENT: The pupils are equal and round. The extraocular motions are intact. Sclerae are anicteric. Oropharynx is pink and moist. NECK: Without JVD. CHEST: Clear to auscultation bilaterally with okay air movement. CARDIOVASCULAR: The heart has regular rate and rhythm without murmur. ABDOMEN: Positive bowel sounds, soft, nontender, no guarding or rebound. EXTREMITIES: There is 2+ edema in the bilateral lower extremities. There is some petechiae on the lower legs, some of them are in a linear fashion where she probably had socks cutting into the skin. There is some redness to the left foot. She currently has a bandage over the posterior heel in the area of the wound. There is some tenderness to palpation with warmth on the foot on the left side. The right side is nontender and has decreased sensation. She does have a palpable dorsalis pedis pulse on the left foot. NEUROLOGIC: Nonfocal except as noted above with decreased sensation. PSYCHIATRIC: Mood and affect appear appropriate. LABORATORY DATA: At the time of admission; WBC 5.9, hemoglobin 10.5, hematocrit 33.9, platelets 286. Sodium 140, potassium 3.9, chloride 104, CO2 of 29, BUN 28, creatinine 1.2, glucose 157. LFTs are within normal limits except for alkaline phosphatase of 145. Albumin is 2.7. Bone scan shows positive abnormal uptake in the left calcaneus concerning for osteomyelitis. IMPRESSION: 1. Left calcaneal osteomyelitis. 2. Diabetes mellitus type 2 with neuropathy. 3. Hypertension. PLAN: The patient is admitted. She will be seen in consultation with Orthopedics and consider Vascular Surgery for possible debridement. We will ask Infectious Disease here regarding IV antibiotic choice. Likely, she will need to be on 6 weeks of IV antibiotics, so probably need to make arrangements for custodial unless her insurance will cover home IV antibiotics, but that will be unlikely ____ also need probably significant wound care depending on how much debridement needs to be done to the foot. We will continue home medications. We will use sliding scale insulin. We will decide if she needs to restart long-acting insulin. SANJIV DAVIS MD DR: CHAD/yuri JOB#: [id number] / [id number]
[2016-04-14 11:00] VITALS: BP 174/82
[2016-04-14] MEDS: VANCOMYCIN 1.75 GM in IV NORMAL SALINE 500ML BAG 500 ML IV SCH (13:00)
--- NOTE | 2016-04-14 14:37 | PDOC ---
PROGRESS NOTES Subjective Subjective Patient is resting in bed, she does complain of left heel pain. Objective Objective Vital Signs Date Time Temp Pulse Resp B/P Pulse Ox O2 Delivery O2 Flow Rate FiO2 04/14/16 12:49 18 Room Air 04/14/16 11:49 90 04/14/16 08:33 130/60 04/14/16 08:32 54 04/14/16 07:00 97.3 97.3 04/13/16 16:53 2.0 Intake and Output 04/14/16 07:00 Intake Total 900 ml Balance 900 ml Intake Oral 0 ml Other 900 ml # Voids 2 Physical Exam Abdomen: Normal bowel sounds, Soft Extremities: Other (Left foot: heel wound was clean, exposed bone, no bleeding. no drainage) Lungs: Clear to auscultation Neck: Supple Diagnosis Other Left foot osteomyelitis Assessment Assessment Problems Medical Problems: (1) Osteomyelitis of left foot Status: Acute Plan Plan of Care The left heel wound dressing was changed, and wet-dry with kerlex and BRO was applied. If bleeding, may remove the BRO wrap and reinforce the dressing and replace BRO wrap. Non-weight bearing to the left heel. Placed order for Wound VAC placement to the left heel. She is getting a PICC line for extended IV abx. She may be discharged from vascular surgery perspective, and will need follow-up in wound care clinic or vascular surgery office. Comment Review of Relevant I have reviewed the following items sandeep (where applicable) has been applied. Labs Laboratory Tests Test 04/12/16 16:46 04/12/16 20:39 04/13/16 07:35 04/13/16 11:03 Glucose (Fingerstick) 182mg/dL (70-99) 208mg/dL (70-99) 155mg/dL (70-99) 159mg/dL (70-99) Test 04/13/16 16:34 04/13/16 19:00 04/13/16 20:57 04/14/16 07:31 Glucose (Fingerstick) 87mg/dL (70-99) 132mg/dL (70-99) 64mg/dL (70-99) Sodium Level 143mmol/L (136-145) Potassium Level 3.4mmol/L (3.5-5.1) Chloride Level 106mmol/L (98-107) Carbon Dioxide Level 28mmol/L (21-32) Anion Gap 9 (6-14) Blood Urea Nitrogen 28mg/dL (7-20) Creatinine 1.2mg/dL (0.6-1.0) Estimated GFR (Cockcroft-Gault) 43.4 Glucose Level 116mg/dL (70-99) Calcium Level 8.5mg/dL (8.5-10.1) Test 04/14/16 07:57 04/14/16 13:06 Glucose (Fingerstick) 79mg/dL (70-99) 121mg/dL (70-99) Laboratory Tests Test 04/13/16 16:34 04/13/16 19:00 04/13/16 20:57 04/14/16 07:31 Glucose (Fingerstick) 87mg/dL (70-99) 132mg/dL (70-99) 64mg/dL (70-99) Sodium Level 143mmol/L (136-145) Potassium Level 3.4mmol/L (3.5-5.1) Chloride Level 106mmol/L (98-107) Carbon Dioxide Level 28mmol/L (21-32) Anion Gap 9 (6-14) Blood Urea Nitrogen 28mg/dL (7-20) Creatinine 1.2mg/dL (0.6-1.0) Estimated GFR (Cockcroft-Gault) 43.4 Glucose Level 116mg/dL (70-99) Calcium Level 8.5mg/dL (8.5-10.1) Test 04/14/16 07:57 04/14/16 13:06 Glucose (Fingerstick) 79mg/dL (70-99) 121mg/dL (70-99) Microbiology 04/12/16 Gram Stain - Final, Complete 04/13/16 Gram Stain - Final, Complete Medications Current Medications Vancomycin HCl 1 each 1 each PRN DAILY PRN MC SEE COMMENTS Last administered on 04/12/16 13:39; Start 04/12/16 at 11:00 Meropenem 500 mg/ Sodium Chloride 50 ml @ 100 mls/hr Q8HRS IV Last administered on 04/14/16 13:44; Start 04/12/16 at 22:00 Meropenem 500 mg/ Sodium Chloride 50 ml @ 100 mls/hr ONCE ONCE IV Last administered on 04/12/16 12:39; Start 04/12/16 at 11:00; Stop 04/12/16 at 11:29; Status DC Vancomycin HCl/ Sodium Chloride (Iv Sodium Chloride 0.9% 500ml Bag) 500 ml @ 250 mls/hr ONCE ONCE IV Last administered on 04/12/16 12:38; Start 04/12/16 at 11:00; Stop 04/12/16 at 12:59; Status DC Ondansetron HCl (Zofran) 4 mg PRN Q6HRS PRN IV NAUSEA/VOMITING; Start 04/12/16 at 12:30 Acetaminophen/ Hydrocodone Bitart (Lortab 5/325) 1 tab PRN Q4HRS PRN PO MILD PAIN, 2ND CHOICE Last administered on 04/14/16 06:29; Start 04/12/16 at 12:30 Acetaminophen (Tylenol) 650 mg PRN Q6HRS PRN PO MILD PAIN / TEMP Last administered on 04/13/16 20:52; Start 04/12/16 at 12:30 Insulin Aspart (Novolog) 0-7 UNITS TIDWMEALS SQ Last administered on 04/13/16 09:08; Start 04/12/16 at 17:00 Dextrose 12.5 gm PRN Q15MIN PRN IV SEE COMMENTS; Start 04/12/16 at 12:30 Atenolol (Tenormin) 25 mg DAILY PO Last administered on 04/14/16 08:33; Start 04/12/16 at 13:00 Glipizide (Glucotrol Er) 10 mg BIDWMEALS PO Last administered on 04/13/16 18:34 ; Start 04/12/16 at 17:00 Hydralazine HCl (Apresoline) 25 mg DAILY PO ; Start 04/12/16 at 13:00; Stop at 08:17; Status DC Hydrochlorothiazide (Hydrodiuril) 25 mg DAILY PO Last administered on 08:33; Start 04/12/16 at 13:00 Metformin HCl (Glucophage) 1,000 mg BIDWMEALS PO Last administered on 08:31; Start 04/12/16 at 17:00 Albuterol Sulfate 2.5 mg 2.5 mg PRN Q4HRS PRN NEB SHORTNESS OF BREATH; Start at 12:45 Vancomycin HCl/ Sodium Chloride (Iv Sodium Chloride 0.9% 500ml Bag) 500 ml @ 250 mls/hr Q24H IV Last administered on 04/13/16 13:27; Start 04/13/16 at 13:00 Vancomycin HCl 1 each 1X ONCE MC ; Start 04/14/16 at 12:30; Stop 04/14/16 at 12 :31; Status DC Hydralazine HCl (Apresoline) 25 mg BID PO Last administered on 04/14/16 08:32 ; Start 04/13/16 at 09:00 Losartan Potassium (Cozaar) 50 mg DAILY PO Last administered on 04/14/16 08:32 ; Start 04/13/16 at 09:00 Insulin Detemir (Levemir) 5 units QHS SQ Last administered on 04/13/16 21:02; Start 04/13/16 at 21:00 Furosemide (Lasix) 20 mg DAILY IVP Last administered on 04/14/16 08:33; Start 04/13/16 at 09:00 Multivitamins (Thera M Plus) 1 tab DAILY PO Last administered on 04/14/16 08: 31; Start 04/13/16 at 11:00 Ascorbic Acid (Vitamin C) 1,000 mg BID PO Last administered on 04/14/16 08:30 ; Start 04/13/16 at 11:00 Cellulose 1 each STK-MED ONCE .ROUTE ; Start 04/13/16 at 13:53; Stop 04/13/16 at 13:54; Status DC Lidocaine HCl 30 ml STK-MED ONCE .ROUTE ; Start 04/13/16 at 13:53; Stop 04/13/16 at 13:54; Status DC Ondansetron HCl (Zofran) 4 mg PRN Q6HRS PRN IV Nausea; Start 04/13/16 at 14:00; Stop 04/13/16 at 20:00; Status DC Fentanyl Citrate (Fentanyl 2ml Vial) 25 mcg PRN Q5MIN PRN IV MILD PAIN Last administered on 04/13/16 17:07; Start 04/13/16 at 14:00; Stop 04/13/16 at 20:00; Status DC Fentanyl Citrate (Fentanyl 2ml Vial) 50 mcg PRN Q5MIN PRN IV MODERATE PAIN Last administered on 04/13/16 16:40; Start 04/13/16 at 14:00; Stop 04/13/16 at 20: 00; Status DC Morphine Sulfate 1 mg 1 mg PRN Q10MIN PRN IV SEVERE PAIN Last administered on 16:53; Start 04/13/16 at 14:00; Stop 04/13/16 at 20:00; Status DC Lactated Ringer's (Iv Lactated Ringers) 1,000 ml @ 30 mls/hr Q24H IV ; Start at 13:58; Stop 04/14/16 at 01:57; Status DC Lidocaine HCl 2 ml 1X PRN PRN ID IV START; Start 04/13/16 at 14:00; Stop at 20:00; Status DC Hydromorphone HCl (Dilaudid) 0.5 mg PRN Q10MIN PRN IV SEV PAIN,Second choice; Start 04/13/16 at 14:00; Stop 04/13/16 at 20:00; Status DC Prochlorperazine Edisylate (Compazine) 5 mg PACU PRN PRN IV NAUSEA; Start at 14:00; Stop 04/13/16 at 20:00; Status DC Lactobacillus Acidophilus 1 tab 1 tab TIDWMEALS PO Last administered on 13:42; Start 04/13/16 at 17:00 Propofol (Diprivan) 20 ml @ As Directed STK-MED ONCE IV ; Start 04/13/16 at 15:02 ; Stop 04/13/16 at 15:03; Status DC Lidocaine HCl 100 mg STK-MED ONCE .ROUTE ; Start 04/13/16 at 15:02; Stop 04/13/16 at 15:03; Status DC Sevoflurane (Ultane) 15 ml STK-MED ONCE IH ; Start 04/13/16 at 15:29; Stop at 15:30; Status DC Ondansetron HCl (Zofran) 4 mg STK-MED ONCE .ROUTE ; Start 04/13/16 at 15:39; Stop 04/13/16 at 15:40; Status DC Acetaminophen/ Hydrocodone Bitart (Lortab 5/325) 2 tab PRN Q4HRS PRN PO PAIN MILD TO MOD Last administered on 04/14/16t 11:49; Start 04/13/16 at 21:15 Active Scripts Active Glipizide Er (Glipizide) 5 Mg Tab.er.24 10 Mg PO BIDWMEALS 30 Days Proair Hfa Inhaler (Albuterol Sulfate) 8.5 Gm Hfa.aer.ad 1 Puff INH PRN Q6HRS PRN Atenolol 25 Mg Tablet 25 Mg PO DAILY Reported Metformin Hcl 1,000 Mg Tablet 1 Tab PO BID Hydralazine Hcl 25 Mg Tablet 25 Mg PO DAILY Hydrochlorothiazide Tablet (Hydrochlorothiazide) 25 Mg Tablet 1 Tab PO DAILY Hydrocodone-Apap 7.5-325 (Hydrocodone Bit/Acetaminophen) 1 Each Tablet 1 Tab PO PRN Q6HRS PRN Vitals/I & O Vital Sign - Last 24 Hours 04/13/16 04/13/16 04/13/16 04/13/16 16:04 16:18 16:24 16:29 Temp 97.2 97.2 Pulse 59 58 54 Resp 16 16 16 16 B/P 116/49 112/52 91/50 Pulse Ox 96 100 96 92 O2 Delivery Simple Mask Room Air Room Air Simple Mask O2 Flow Rate 10 04/13/16 04/13/16 04/13/16 04/13/16 16:39 16:40 16:53 16:54 Pulse 54 56 Resp 16 16 18 B/P 113/59 125/60 Pulse Ox 98 96 99 98 O2 Delivery Room Air Nasal Cannula Nasal Cannula Room Air O2 Flow Rate 2.0 2.0 04/13/16 04/13/16 04/13/16 04/13/16 17:07 17:30 17:45 18:00 Temp 98.1 98.1 Pulse 60 58 63 Resp 16 18 18 18 B/P 128/61 125/63 144/66 Pulse Ox 95 92 90 O2 Delivery Nasal Cannula Room Air Room Air Room Air 04/13/16 04/13/16 04/13/16 04/13/16 18:15 18:30 18:37 19:00 Temp 98.0 98.0 Pulse 55 71 70 Resp 18 18 18 18 B/P 112/45 125/62 128/60 Pulse Ox 92 92 91 O2 Delivery Room Air Room Air Room Air Room Air 04/13/16 04/13/16 04/13/16 04/13/16 19:30 19:59 20:00 20:47 Pulse 59 74 51 Resp 18 18 B/P 109/41 111/72 135/82 Pulse Ox 91 95 O2 Delivery Room Air Room Air Room Air 04/13/16 04/13/16 04/14/16 04/14/16 21:00 23:00 02:34 03:00 Temp 97.3 98.5 97.3 98.5 Pulse 63 62 65 Resp 18 18 18 18 B/P 146/66 135/67 152/56 Pulse Ox 95 93 92 O2 Delivery Room Air Room Air Room Air Room Air 04/14/16 04/14/16 04/14/16 04/14/16 06:29 07:00 07:29 08:00 Temp 97.3 97.3 Pulse 54 Resp 18 16 18 B/P 130/60 Pulse Ox 90 O2 Delivery Room Air Room Air Room Air Room Air 04/14/16 04/14/16 04/14/16 04/14/16 08:32 08:32 08:33 11:49 Pulse 54 54 Resp 16 B/P 130/60 130/60 130/60 Pulse Ox 90 O2 Delivery Room Air 04/14/16 12:49 Resp 18 O2 Delivery Room Air Intake and Output 04/13/16 04/13/16 04/14/16 15:00 23:00 07:00 Intake Total 900 ml Balance 900 ml YARIEL CAMPBELL MD Apr 14, 2016 14:37
[2016-04-14 15:00] VITALS: BP 144/72
[2016-04-14] MEDS: VANCOMYCIN PER PHARMACY MC PRN (15:54)
[2016-04-14] MEDS: VANCOMYCIN 1.5 GM in IV NORMAL SALINE 500ML BAG 500 ML IV SCH (17:47)
[2016-04-14 19:15] VITALS: BP 126/64
[2016-04-14] MEDS: INSULIN DETEMIR 300 UNITS/3 ML INSULN.PEN. SQ SCH (19:16)
[2016-04-14] MEDS ORDERED: MORPHINE SULFATE 2 MG/ML DISP.SYRIN. IV PRN (21:15)
[2016-04-14] MEDS: MORPHINE SULFATE 2 MG/ML DISP.SYRIN. IV PRN (21:28)
[2016-04-15] MEDS: HYDROCODONE/APAP 5/325MG TABLET. PO PRN ×4 (02:18→20:59)
[2016-04-15 03:20] VITALS: BP 151/69
[2016-04-15 04:18] LABS: CALCIUM 8.2 mg/dL (8.5-10.1); CREATININE 1.4 mg/dL (0.6-1.0); GFR 36.4; POTASSIUM 3.9 mmol/L (3.5-5.1)
[2016-04-15] MEDS: MEROPENEM 500 MG in IV NORMAL SALINE 50ML 50 ML IV SCH ×3 (06:21→20:58)
[2016-04-15 07:36] VITALS: BP 129/54
[2016-04-15] MEDS: INSULIN ASPART 300 UNITS/3 ML INSULN.PEN SQ SCH ×3 (08:00→17:00)
[2016-04-15] MEDS: HYDRALAZINE 25 MG TABLET PO SCH ×2 (08:16→20:59)
[2016-04-15] MEDS: MULTIVITAMIN with MINERAL TABLET. PO SCH (08:17)
[2016-04-15] MEDS: LOSARTAN POTASSIUM 50 MG TABLET. PO SCH (08:17)
[2016-04-15] MEDS: ASCORBIC ACID 500 MG TABLET PO SCH ×2 (08:17→20:59)
[2016-04-15] MEDS: ATENOLOL 25 MG TABLET PO SCH (08:17)
[2016-04-15] MEDS: HYDROCHLOROTHIAZIDE 25 MG TABLET PO SCH (08:17)
[2016-04-15] MEDS: METFORMIN 1,000 MG TABLET PO SCH ×2 (08:17→17:16)
[2016-04-15] MEDS: LACTOBACILLUS ACIDOPH & BULGAR 1 TABLET. PO SCH ×3 (08:18→17:16)
[2016-04-15] MEDS: FUROSEMIDE 20 MG/2 ML VIAL IVP SCH (08:18)
[2016-04-15] MEDS: GLIPIZIDE ER 5 MG TAB.ER.24 PO SCH ×2 (08:18→17:16)
--- NOTE | 2016-04-15 10:32 | PDOC ---
SUBJECTIVE Subjective Pt states that she is feeling "okay". Pain level is 6/10. Breathing okay, denies chest pain. Pt noticed rash on her hands that started today. She said she noticed a similar rash on her legs starting 04/05/16 after being started on antibiotics. OBJECTIVE Vital Signs Vital Signs Date Time Temp Pulse Resp B/P Pulse Ox O2 Delivery O2 Flow Rate FiO2 04/15/16 08:17 72 151/69 04/15/16 08:17 72 151/69 04/15/16 08:16 72 151/69 04/15/16 08:00 Room Air 04/15/16 07:36 97.9 66 18 129/54 90 Room Air 97.9 04/15/16 07:22 16 92 Room Air 2.0 04/15/16 06:22 18 04/15/16 03:20 98.8 72 18 151/69 92 Room Air 98.8 04/15/16 02:18 18 Room Air 04/14/16 22:29 18 Room Air 04/14/16 21:29 72 126/64 04/14/16 21:28 18 Room Air 04/14/16 21:03 18 Room Air 04/14/16 20:00 Room Air 04/14/16 19:33 18 Room Air 04/14/16 19:15 97.7 72 18 126/64 93 Room Air 97.7 04/14/16 15:00 97.6 75 16 144/72 94 Room Air 97.6 04/14/16 11:49 16 90 Room Air 04/14/16 11:00 97.3 67 18 174/82 93 Room Air 97.3 I & O Intake and Output 04/15/16 07:00 Intake Total 280 ml Balance 280 ml Intake Oral 280 ml # Voids 5 # Bowel Movements 5 PHYSICAL EXAM Physical Exam General: No acute distress. Laying in bed. Mental status: Alert and oriented. Chest: Air movement: good. Auscultation: clear throughout Cardiovascular: Rate: normal. Rhythm: regular. Murmur: none. Abdomen: Bowel sounds: normal. Soft. Nondistended. Tenderness: nontender to palpation. No guarding. No rebound. Extremities: non pitting edema bilateral lower extremities. The left heel has a dressing on it, malodorous. She is in a heel protector. Bilateral LE erythematous and slightly warm to touch Nuero: CN2-12 GI Psych: flat affect, depressed mood. ASSESSMENT/PLAN Assessment/Plan Pt is a 80yo CF admitted for left calcaneal osteomyelitis 1. Left calcaneal osteomyelitis: Postop day #2 status post debridement, wound vac started yesterday. Vascular surgery and infectious disease following; currently receiving Vancomycin and Meropenem; possible rash reaction to abs? Appreciate ID recommendations. 2. DM2: Uncontrolled. HbA1C 08/20 was 9.2, repeat pending. Pt continued on oral medications of Metformin 1000mg BID and Glipizide 10mg BID. Started on Levemir 5 units which was held last night. Not receiving any insulin with SSI. 3. Hypertension: moderately controlled. Pt continued on Hydralazine 25mg BID, HCTZ 25mg, Atenolol 25mg qday and recently started on Losartan 50mg. CTM 4. Low back pain: Stable. 5. Lower extremity edema. Elevated BNP. Pt initially was receiving IV Lasix. Now receiving Lasix 20mg qday. 6. Diarrhea. C. difficile was negative. Start probiotic as she was on antibiotics recently. May need to start something like Questran to help with the diarrhea. 7. Disposition: Patient will likely need detention. 8. Anemia- mild, chronic. No acute bleeding. Problems: COMMENT Lab Laboratory Tests Test 04/14/16 13:06 04/14/16 13:49 04/14/16 17:10 04/15/16 03:25 Glucose (Fingerstick) 121mg/dL (70-99) 135mg/dL (70-99) Vancomycin Level Trough 20.6mcg/mL (10.0-20.0) Vancomycin Last Dose Date 04/13/16 Vancomycin Last Dose Time 1300 Sodium Level 143mmol/L (136-145) Potassium Level 3.9mmol/L (3.5-5.1) Chloride Level 108mmol/L (98-107) Carbon Dioxide Level 27mmol/L (21-32) Anion Gap 8 (6-14) Blood Urea Nitrogen 31mg/dL (7-20) Creatinine 1.4mg/dL (0.6-1.0) Estimated GFR (Cockcroft-Gault) 36.4 Glucose Level 173mg/dL (70-99) Calcium Level 8.2mg/dL (8.5-10.1) Test 04/15/16 07:54 Glucose (Fingerstick) 177mg/dL (70-99) SILVER BLAKELY MD Apr 15, 2016 10:32
[2016-04-15 11:10] VITALS: BP 145/80
--- NOTE | 2016-04-15 14:34 | PDOC ---
Infectious Disease Note Subjective Subjective + left foot pain c/o rash hands and legs, nonpruritic. Present prior to admission + diarrhea Appetite so-so ROS ROS GEN: Denies fevers, chills, sweats CV: Denies chest pain RESP: Denies shortness of air, cough GI: Denies n/v Vital Sign Vital Signs Vital Signs Date Time Temp Pulse Resp B/P Pulse Ox O2 Delivery O2 Flow Rate FiO2 04/15/16 11:10 97.5 70 18 145/80 94 Room Air 97.5 04/15/16 07:22 2.0 Physical Exam PHYSICAL EXAM GENERAL: Propped up in bed, NAD HEENT: OC/OP pink LUNGS: Clear HEART: S1S2 ABD: Soft, NT, BS present EXT: BLE trace edema. Left foot wound vac/boot in place CATTLE TESTER: Alert, oriented x 3, no focal neurologic deficit SKIN: + rash hands and legs RUE-PICC. clean Labs Lab Laboratory Tests Test 04/14/16 17:10 04/15/16 03:25 04/15/16 07:54 04/15/16 11:56 Glucose (Fingerstick) 135mg/dL (70-99) 177mg/dL (70-99) 181mg/dL (70-99) Sodium Level 143mmol/L (136-145) Potassium Level 3.9mmol/L (3.5-5.1) Chloride Level 108mmol/L (98-107) Carbon Dioxide Level 27mmol/L (21-32) Anion Gap 8 (6-14) Blood Urea Nitrogen 31mg/dL (7-20) Creatinine 1.4mg/dL (0.6-1.0) Estimated GFR (Cockcroft-Gault) 36.4 Glucose Level 173mg/dL (70-99) Calcium Level 8.2mg/dL (8.5-10.1) Micro Bone Staph aureus Enterococcus Antibiotic RSLT#1 RSLT#2 RSLT#3 RSLT#4 Ciprofloxacin S Clindamycin S Erythromycin S Gentamicin S Levofloxacin S Linezolid S Moxifloxacin S Oxacillin S Penicillin R S Quinupristin/Dalfopristin S Rifampin S Tetracycline S Trimethoprim/Sulfa S Vancomycin S S Objective Assessment Left foot wound with exposed bone s/p I and D. 04/13. MSSA and enterococcus spp so far - ESR 57 Rash on ext not trunk Edema HTN Debility Diarrhea. c. diff negative Renal insufficiency Augmentin allergy Plan Plan of Care D/c Vanc Cont meropenem. Vanc trough 20.6 leg elevation Monitor WBC and Cr Monitor rash f/u cultures D/w family Attending Co-Sign Attending Co-Sign The patient was seen and interviewed as well as examined at the bedside. The chart was reviewed. The case was discussed. Agree with the plan of care. CRISTIAN MANCILLA APRN Apr 15, 2016 14:33 ETHEL ABREU MD Apr 15, 2016 15:31
--- NOTE | 2016-04-15 14:38 | PDOC ---
Provider Note Provider Note AF VSS awake and alert left posterior heel/leg wound with VAC in place, no surrounding erythema, palpable DP pulse A/P s/p left foot debridement - continue antibiotics per ID - VAC change and wound check sunday JACIEL LEA MD Apr 15, 2016 14:37
[2016-04-15 15:07] VITALS: BP 167/76
[2016-04-15] MEDS: VANCOMYCIN 1.5 GM in IV NORMAL SALINE 500ML BAG 500 ML IV SCH (15:25)
[2016-04-15 19:15] VITALS: BP 121/50
[2016-04-15] MEDS: INSULIN DETEMIR 300 UNITS/3 ML INSULN.PEN. SQ SCH (21:13)
[2016-04-15 23:17] VITALS: BP 128/55
[2016-04-16 03:00] VITALS: BP 133/65
[2016-04-16] MEDS: ALBUTEROL SULFATE 2.5 MG/3 ML NEBU. NEB PRN ×3 (04:28→12:21)
[2016-04-16] MEDS: MEROPENEM 500 MG in IV NORMAL SALINE 50ML 50 ML IV SCH ×3 (04:59→21:34)
[2016-04-16] MEDS: HYDROCODONE/APAP 5/325MG TABLET. PO PRN ×4 (04:59→18:38)
[2016-04-16 06:00] LABS: CALCIUM 8.9 mg/dL (8.5-10.1); CREATININE 1.3 mg/dL (0.6-1.0); GFR 39.6; POTASSIUM 3.9 mmol/L (3.5-5.1)
[2016-04-16 07:00] VITALS: BP 132/59
[2016-04-16] MEDS: INSULIN ASPART 300 UNITS/3 ML INSULN.PEN SQ SCH ×3 (08:00→17:00)
[2016-04-16] MEDS: LACTOBACILLUS ACIDOPH & BULGAR 1 TABLET. PO SCH ×4 (08:09→17:34)
[2016-04-16] MEDS: MULTIVITAMIN with MINERAL TABLET. PO SCH ×2 (08:10→09:00)
[2016-04-16] MEDS: FUROSEMIDE 20 MG/2 ML VIAL IVP SCH (08:10)
[2016-04-16] MEDS: ASCORBIC ACID 500 MG TABLET PO SCH ×3 (08:10→21:35)
[2016-04-16] MEDS: METFORMIN 1,000 MG TABLET PO SCH ×3 (08:10→17:34)
[2016-04-16] MEDS: GLIPIZIDE ER 5 MG TAB.ER.24 PO SCH ×3 (08:10→17:34)
[2016-04-16] MEDS: LOSARTAN POTASSIUM 50 MG TABLET. PO SCH ×2 (08:11→09:00)
[2016-04-16] MEDS: HYDROCHLOROTHIAZIDE 25 MG TABLET PO SCH ×2 (08:11→09:00)
[2016-04-16] MEDS: HYDRALAZINE 25 MG TABLET PO SCH ×3 (08:12→21:30)
[2016-04-16] MEDS: ATENOLOL 25 MG TABLET PO SCH ×2 (08:13→09:00)
[2016-04-16 11:00] VITALS: BP 120/57
--- NOTE | 2016-04-16 11:19 | PDOC ---
SUBJECTIVE Subjective Pt refused all of her morning medications. Pt worried about swelling in her left arm and swelling in her legs. Pt says that she could not breath earlier this morning. Breathing treatment helped. She is having productive cough with yellow sputum. OBJECTIVE Vital Signs Vital Signs Date Time Temp Pulse Resp B/P Pulse Ox O2 Delivery O2 Flow Rate FiO2 04/16/16 08:35 Room Air 04/16/16 08:30 Room Air 2.0 04/16/16 07:00 97.6 78 18 132/59 93 Room Air 97.6 04/16/16 05:59 20 Room Air 04/16/16 04:59 20 99 Room Air 04/16/16 04:29 99 Room Air 04/16/16 03:00 98.3 65 18 133/65 96 Room Air 98.3 04/15/16 23:17 98.4 77 18 128/55 92 Room Air 98.4 04/15/16 20:59 20 Room Air 04/15/16 20:59 76 121/50 04/15/16 20:00 Room Air 04/15/16 19:15 98.3 76 18 121/50 89 Room Air 98.3 04/15/16 16:24 97 2.0 04/15/16 15:24 16 97 Room Air 2.0 04/15/16 15:07 97.5 70 18 167/76 97 Room Air 97.5 I & O Intake and Output 04/16/16 07:00 Intake Total 750 ml Output Total 200 ml Balance 550 ml Intake Oral 750 ml Output Urine Total 200 ml # Voids 5 PHYSICAL EXAM Physical Exam General: mild distress, AOx3 Chest: Air movement: good. Auscultation: clear throughout Cardiovascular: Rate: normal. Rhythm: regular. Murmur: none. Abdomen: Bowel sounds: normal. Soft. Nondistended. Tenderness: nontender to palpation. No guarding. No rebound. Extremities: non pitting edema bilateral lower extremities. The left heel has a dressing on it, malodorous. She is in a heel protector. 2+ pitting edema LE bilaterally. Erythema and warmth in lower extremities has improved. Nuero: CN2-12 GI Psych: flat affect, depressed mood. ASSESSMENT/PLAN Assessment/Plan Pt is a 80yo CF admitted for left calcaneal osteomyelitis 1. Left calcaneal osteomyelitis: Postop day #3 status post debridement and wound vac placement. Vascular surgery and infectious disease following; abx tapered to Meropenem. 2. DM2: Uncontrolled. HbA1C 08/20 was 9.2, repeat this admission was 9.6. Pt continued on oral medications of Metformin 1000mg BID and Glipizide 10mg BID. Will D/C Levemir, has SSI available 3. Hypertension: moderately controlled. Pt continued on Hydralazine 25mg BID, HCTZ 25mg, Atenolol 25mg qday and recently started on Losartan 50mg. CTM 4. Low back pain: Stable. 5. Lower extremity edema. Elevated BNP. Pt receiving 20mg IV Lasix daily 6. Diarrhea. C. difficile was negative. Start probiotic as she was on antibiotics recently. May need to start something like Questran to help with the diarrhea. 7. Disposition: Patient will likely need detention. 8. Anemia- mild, chronic. No acute bleeding. 9. CKD- stable. Pt's Cr currently 1.3, electrolytes WNL Problems: COMMENT Lab Laboratory Tests Test 04/15/16 11:56 04/15/16 16:48 04/15/16 21:01 04/16/16 05:20 Glucose (Fingerstick) 181mg/dL (70-99) 123mg/dL (70-99) 143mg/dL (70-99) Sodium Level 142mmol/L (136-145) Potassium Level 3.9mmol/L (3.5-5.1) Chloride Level 107mmol/L (98-107) Carbon Dioxide Level 24mmol/L (21-32) Anion Gap 11 (6-14) Blood Urea Nitrogen 35mg/dL (7-20) Creatinine 1.3mg/dL (0.6-1.0) Estimated GFR (Cockcroft-Gault) 39.6 Glucose Level 134mg/dL (70-99) Calcium Level 8.9mg/dL (8.5-10.1) Test 04/16/16 07:49 Glucose (Fingerstick) 138mg/dL (70-99) SILVER BLAKELY MD Apr 16, 2016 11:19
--- NOTE | 2016-04-16 13:31 | RAD ---
EXAM: Left upper extremity venous Doppler. HISTORY: Left upper extremity edema. COMPARISON: None. FINDINGS: Grayscale and Doppler analysis of the left upper extremity deep venous system was performed with graded compression and augmentation. The internal jugular, subclavian, axillary, brachial, basilic, cephalic, radial and ulnar veins were assessed. There is no evidence of deep venous thrombosis. Subcutaneous edema is noted at the previous IV site along the forearm. There is no drainable collection. IMPRESSION: 1. No evidence of deep venous thrombosis. 2. Subcutaneous edema at the previous IV site. Correlate for infiltration of the IV or cellulitis.
[2016-04-16 15:00] VITALS: BP 132/63
[2016-04-16 19:00] VITALS: BP 141/69
[2016-04-16] MEDS: MORPHINE SULFATE 2 MG/ML DISP.SYRIN. IV PRN (21:34)
[2016-04-16 23:23] VITALS: BP 125/62
[2016-04-17] MEDS: HYDROCODONE/APAP 5/325MG TABLET. PO PRN ×4 (01:43→19:30)
[2016-04-17 03:23] VITALS: BP 118/55
[2016-04-17] MEDS: MEROPENEM 500 MG in IV NORMAL SALINE 50ML 50 ML IV SCH (06:04)
[2016-04-17 07:00] VITALS: BP 134/69
[2016-04-17] MEDS: INSULIN ASPART 300 UNITS/3 ML INSULN.PEN SQ SCH ×3 (08:00→17:00)
[2016-04-17] MEDS: LACTOBACILLUS ACIDOPH & BULGAR 1 TABLET. PO SCH ×3 (08:23→17:16)
[2016-04-17] MEDS: HYDROCHLOROTHIAZIDE 25 MG TABLET PO SCH (08:23)
[2016-04-17] MEDS: FUROSEMIDE 20 MG/2 ML VIAL IVP SCH (08:23)
[2016-04-17] MEDS: GLIPIZIDE ER 5 MG TAB.ER.24 PO SCH ×2 (08:23→17:16)
[2016-04-17] MEDS: ALBUTEROL SULFATE 2.5 MG/3 ML NEBU. NEB PRN ×3 (08:23→16:27)
[2016-04-17] MEDS: METFORMIN 1,000 MG TABLET PO SCH ×2 (08:24→17:18)
[2016-04-17] MEDS: ASCORBIC ACID 500 MG TABLET PO SCH ×2 (08:24→21:30)
[2016-04-17] MEDS: LOSARTAN POTASSIUM 50 MG TABLET. PO SCH (08:24)
[2016-04-17] MEDS: ATENOLOL 25 MG TABLET PO SCH (08:24)
[2016-04-17] MEDS: MULTIVITAMIN with MINERAL TABLET. PO SCH (08:24)
[2016-04-17] MEDS: HYDRALAZINE 25 MG TABLET PO SCH ×2 (08:25→21:30)
--- NOTE | 2016-04-17 08:46 | DISCH ---
DISCHARGE DISCHARGE DATE: Apr 17, 2016 FINAL DIAGNOSIS Problems Medical Problems: (1) Osteomyelitis of left foot Status: Acute CONDITION ON DISCHARGE: Stable SNF STAY <30 DAYS: No (will need 6 weeks IV abx depending on ID rec) POST DISCHARGE ORDERS ACTIVITY ORDERS: Activity as tolerated, Progressive ambulation WEIGHT BEARING STATUS: Partial weight bearing DIET AFTER DISCHARGE: ADA WOUND/INCISION CARE: Change dressing CHECKS AFTER DISCHARGE CHECKS AFTER DISCHARGE: Check blood press - daily, Check blood sugar, ac/hs FOLLOW-UP PHYSICIAN FOLLOW-UP: Dr Davis after discharge ADDITIONAL FOLLOW-UP: wound care and wound vac TREATMENT/EQUIPMENT ORDERS ADAPTIVE EQUIPMENT NEEDED: Four wheeled walker SANJIV DAVIS MD Apr 17, 2016 08:45
--- NOTE | 2016-04-17 08:57 | PDOC ---
SUBJECTIVE Subjective Doing okay. Mood is poor. Denies any shortness of breath. OBJECTIVE Vital Signs Vital Signs Date Time Temp Pulse Resp B/P Pulse Ox O2 Delivery O2 Flow Rate FiO2 04/17/16 08:25 77 134/69 04/17/16 08:24 77 134/69 04/17/16 08:24 77 134/69 04/17/16 08:23 97 Room Air 04/17/16 08:18 Room Air 04/17/16 07:00 96.3 77 20 134/69 94 Room Air 96.3 04/17/16 06:35 Room Air 04/17/16 06:05 Room Air 04/17/16 03:23 97.8 77 16 118/55 95 Room Air 97.8 04/17/16 01:43 Room Air 04/16/16 23:23 97.7 84 16 125/62 94 Room Air 97.7 04/16/16 22:30 Room Air 04/16/16 21:34 Room Air 04/16/16 21:30 76 141/69 04/16/16 19:45 Room Air 04/16/16 19:45 Room Air 04/16/16 19:00 97.5 76 16 141/69 94 Room Air 97.5 04/16/16 18:38 93 Room Air 2.0 04/16/16 16:23 93 2.0 04/16/16 15:23 93 Room Air 2.0 04/16/16 15:00 97.5 72 16 132/63 96 Room Air 97.5 04/16/16 12:38 93 2.0 04/16/16 12:22 Room Air 04/16/16 11:38 93 Room Air 2.0 04/16/16 11:00 97.7 80 18 120/57 94 Room Air 97.7 04/16/16 09:00 80 120/57 04/16/16 09:00 80 120/57 04/16/16 09:00 80 120/57 I & O Intake and Output 04/17/16 07:00 Intake Total 399.3 ml Balance 399.3 ml Intake Oral 300 ml IV Total 99.3 ml # Voids 5 # Bowel Movements 2 PHYSICAL EXAM Physical Exam General: No acute distress. Laying in bed. Mental status: Alert and oriented. Depressed appearing Chest: Clear to auscultation anteriorly. Good air movement anteriorly. CV: Normal rate. Regular rhythm. No murmur. Abdomen: Normal bowel sounds. Soft. Not distended. No tenderness. No guarding. No rebound. Extremities: Bilateral lower extremity edema. Somewhat improved. Heel protector with wound VAC on the left heel. ASSESSMENT/PLAN Assessment/Plan 1. Left calcaneal osteomyelitis: Postop day #4 status post debridement and wound vac placement. Vascular surgery and infectious disease following; abx tapered to Meropenem. Change to Invanz 1 gm q 24 hrs per ID on transfer, d/w Dr Montilla 2. DM2: Uncontrolled. HbA1C / was 9.2, repeat this admission was 9.6. Pt continued on oral medications of Metformin 1000mg BID and Glipizide 10mg BID. Will D/C Levemir, has SSI available 3. Hypertension: moderately controlled. Pt continued on Hydralazine 25mg BID, HCTZ 25mg, Atenolol 25mg qday and recently started on Losartan 50mg. CTM 4. Low back pain: Stable. 5. Lower extremity edema. Elevated BNP. Pt receiving 20mg IV Lasix daily 6. Diarrhea. C. difficile was negative. Start probiotic as she was on antibiotics recently. May need to start something like Questran to help with the diarrhea. 7. Disposition: Patient will likely need fpc. 8. Anemia- mild, chronic. No acute bleeding. 9. CKD- stable. Pt's Cr currently 1.3, electrolytes WNL 10 Dispo: to SNU today for IV abx and wound vac, wound care. Abx for 6 weeks from 04/13/18 Problems: COMMENT Lab Laboratory Tests Test 04/16/16 11:32 04/16/16 16:06 04/16/16 21:07 04/17/16 07:34 Glucose (Fingerstick) 174mg/dL (70-99) 148mg/dL (70-99) 143mg/dL (70-99) 116mg/dL (70-99) SANJIV DAVIS MD Apr 17, 2016 08:57
--- NOTE | 2016-04-17 09:49 | PDOC ---
Infectious Disease Note Subjective Subjective + left foot pain c/o rash hands and legs, nonpruritic. Present prior to admission + diarrhea Appetite so-so ROS ROS GEN: Denies fevers, chills, sweats HEENT: Denies blurred vision, sore throat CV: Denies chest pain RESP: Denies shortness of air, cough GI: Denies n/v/d NEURO: Denies confusion, dizziness MSK: Denies weakness, joint pain/swelling Vital Sign Vital Signs Vital Signs Date Time Temp Pulse Resp B/P Pulse Ox O2 Delivery O2 Flow Rate FiO2 04/17/16 08:25 77 134/69 04/17/16 08:23 97 Room Air 04/17/16 07:00 96.3 20 96.3 04/16/16 18:38 2.0 Physical Exam PHYSICAL EXAM GENERAL: NAD, Alert HEENT: PERRL, OC/OP -clear NECK: Supple, no JVD, no LN LUNGS: Clear HEART: S1S2, no gallop, no murmur ABD: Soft, NT, no organomegaly, no rebound EXT: No edema, no cyanosis. Left heel with vac sponge but vac off. 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 04/13. MSSA and Anaerobes - ESR 57 Rash on ext not trunk Edema HTN Debility Diarrhea. c. diff negative Renal insufficiency Augmentin allergy Plan Plan of Care Change to Invanz for 6 weeks leg elevation Weekly CBC, CMP , Sed rate F/u ID office 2 weeks [phone] D/w ETHEL Noel MD Apr 17, 2016 09:49
[2016-04-17] MEDS: MORPHINE SULFATE 2 MG/ML DISP.SYRIN. IV PRN (10:39)
[2016-04-17] MEDS: ERTAPENEM 1 GM in IV NORMAL SALINE 50ML 50 ML IV SCH (10:40)
[2016-04-17 10:52] VITALS: BP 113/54
--- NOTE | 2016-04-17 11:29 | PDOC ---
PROGRESS NOTES Subjective Subjective "My foot hurts. I wish they would have just cut it off." Objective Objective Vascular Surgery - POD#4 Left heel wound debridement O: Tearful and sounds quite depressed. Very [place]. I think this complicates patient's understanding of her prognosis. Confused as to whether or not her bone has infection. LLE: Wound vac dressing came unsealed earlier this a.m. when pt attempted to get to commode. RN reinforced. Dressing now removed. Painful and when morphine given, patient states it makes her hearing worse. Dressing removed. Noted dressing filled with bloody clot. Once removed, tissue bed beefy, bloody and without slough material. Exposed bone present. Strong, palpable left DP pulse. Skin: When turning patient, noted that patient has significant dependent edema to buttock and bilat lower legs to the back of the thighs, knees and calves. No skin breakdown. Weight: Significant increase during this admission? Assessment/Plan: 1. Left heel wound - POD#4 Left heel debridement. Wound base healthy with exposed bone. Continue wound vac therapy with dressing changes --. - need to continue elevation to reduce swelling and off-loading with toe touch only on left foot. - Morphine adding to hearing deficit? Yes per patient's perspective. Will d/c and try Fentanyl at time of dressing changes. Otherwise, take PO [place]. 2. Osteomyelitis with exposed bone after debridement. Continue IV abx per ID upon discharge. PICC line present. 3. Dependent edema with weight gain. Will check BNP, BMP and CBC today. Patient's weight historically around 190-195 lbs. Documented as 236 lbs today. Will have RN recheck patient's weight. - history of admissions for CHF in August 2015. Echo EF was 60% at that time. - receiving Lasix 20mg IV daily at this time. - may need tuned up prior to discharge to SNF. Await results of lab work. Pending. - patient states she noticed an increase in swelling to bilateral lower legs approx. 1 month ago. Vital Signs Date Time Temp Pulse Resp B/P Pulse Ox O2 Delivery O2 Flow Rate FiO2 04/17/16 10:52 96.7 83 18 113/54 93 Room Air 96.7 04/16/16 18:38 2.0 Intake and Output 04/17/16 07:00 Intake Total 399.3 ml Balance 399.3 ml Intake Oral 300 ml IV Total 99.3 ml # Voids 5 # Bowel Movements 2 Assessment Assessment Problems Medical Problems: (1) Osteomyelitis of left foot Status: Acute Comment Review of Relevant I have reviewed the following items sandeep (where applicable) has been applied. Labs Laboratory Tests Test 04/15/16 11:56 04/15/16 16:48 04/15/16 21:01 04/16/16 05:20 Glucose (Fingerstick) 181mg/dL (70-99) 123mg/dL (70-99) 143mg/dL (70-99) Sodium Level 142mmol/L (136-145) Potassium Level 3.9mmol/L (3.5-5.1) Chloride Level 107mmol/L (98-107) Carbon Dioxide Level 24mmol/L (21-32) Anion Gap 11 (6-14) Blood Urea Nitrogen 35mg/dL (7-20) Creatinine 1.3mg/dL (0.6-1.0) Estimated GFR (Cockcroft-Gault) 39.6 Glucose Level 134mg/dL (70-99) Calcium Level 8.9mg/dL (8.5-10.1) Test 04/16/16 07:49 04/16/16 11:32 04/16/16 16:06 04/16/16 21:07 Glucose (Fingerstick) 138mg/dL (70-99) 174mg/dL (70-99) 148mg/dL (70-99) 143mg/dL (70-99) Test 04/17/16 07:34 Glucose (Fingerstick) 116mg/dL (70-99) Laboratory Tests Test 04/16/16 11:32 04/16/16 16:06 04/16/16 21:07 04/17/16 07:34 Glucose (Fingerstick) 174mg/dL (70-99) 148mg/dL (70-99) 143mg/dL (70-99) 116mg/dL (70-99) Microbiology 04/12/16 Gram Stain - Final, Complete 04/13/16 Gram Stain - Final, Complete Medications Current Medications Vancomycin HCl 1 each 1 each PRN DAILY PRN MC SEE COMMENTS Last administered on 04/14/16t 15:54; Start 04/12/16 at 11:00; Stop 04/15/16 at 15:30; Status DC Meropenem 500 mg/ Sodium Chloride 50 ml @ 100 mls/hr Q8HRS IV Last administered on 04/17/16 06:04; Start 04/12/16 at 22:00; Stop 04/17/16 at 09:47 ; Status DC Meropenem 500 mg/ Sodium Chloride 50 ml @ 100 mls/hr ONCE ONCE IV Last administered on 04/12/16 12:39; Start 04/12/16 at 11:00; Stop 04/12/16 at 11:29; Status DC Vancomycin HCl/ Sodium Chloride (Iv Sodium Chloride 0.9% 500ml Bag) 500 ml @ 250 mls/hr ONCE ONCE IV Last administered on 04/12/16 12:38; Start 04/12/16 at 11:00; Stop 04/12/16 at 12:59; Status DC Ondansetron HCl (Zofran) 4 mg PRN Q6HRS PRN IV NAUSEA/VOMITING; Start 04/12/16 at 12:30 Acetaminophen/ Hydrocodone Bitart (Lortab 5/325) 1 tab PRN Q4HRS PRN PO MILD PAIN, 2ND CHOICE Last administered on 04/17/16 06:35; Start 04/12/16 at 12:30 Acetaminophen (Tylenol) 650 mg PRN Q6HRS PRN PO MILD PAIN / TEMP Last administered on 04/13/16 20:52; Start 04/12/16 at 12:30 Insulin Aspart (Novolog) 0-7 UNITS TIDWMEALS SQ Last administered on 04/15/16 12:16; Start 04/12/16 at 17:00 Dextrose 12.5 gm PRN Q15MIN PRN IV SEE COMMENTS; Start 04/12/16 at 12:30 Atenolol (Tenormin) 25 mg DAILY PO Last administered on 04/17/16 08:24; Start 04/12/16 at 13:00 Glipizide (Glucotrol Er) 10 mg BIDWMEALS PO Last administered on 04/17/16 08: 23; Start 04/12/16 at 17:00 Hydralazine HCl (Apresoline) 25 mg DAILY PO ; Start 04/12/16 at 13:00; Stop at 08:17; Status DC Hydrochlorothiazide (Hydrodiuril) 25 mg DAILY PO Last administered on 08:23; Start 04/12/16 at 13:00 Metformin HCl (Glucophage) 1,000 mg BIDWMEALS PO Last administered on 08:24; Start 04/12/16 at 17:00 Albuterol Sulfate 2.5 mg 2.5 mg PRN Q4HRS PRN NEB SHORTNESS OF BREATH Last administered on 04/17/16 08:23; Start 04/12/16 at 12:45 Vancomycin HCl/ Sodium Chloride (Iv Sodium Chloride 0.9% 500ml Bag) 500 ml @ 250 mls/hr Q24H IV Last administered on 04/13/16 13:27; Start 04/13/16 at 13:00 ; Stop 04/14/16 at 15:15; Status DC Vancomycin HCl 1 each 1X ONCE MC Last administered on 04/14/16 12:30; Start 04/14/16 at 12:30; Stop 04/14/16 at 12:31; Status DC Hydralazine HCl (Apresoline) 25 mg BID PO Last administered on 04/17/16 08:25 ; Start 04/13/16 at 09:00 Losartan Potassium (Cozaar) 50 mg DAILY PO Last administered on 04/17/16 08:24 ; Start 04/13/16 at 09:00 Insulin Detemir (Levemir) 5 units QHS SQ Last administered on 04/15/16 21:13; Start 04/13/16 at 21:00; Stop 04/16/16 at 11:19; Status DC Furosemide (Lasix) 20 mg DAILY IVP Last administered on 04/17/16 08:23; Start 04/13/16 at 09:00 Multivitamins (Thera M Plus) 1 tab DAILY PO Last administered on 04/17/16 08: 24; Start 04/13/16 at 11:00 Ascorbic Acid (Vitamin C) 1,000 mg BID PO Last administered on 04/17/16 08:24 ; Start 04/13/16 at 11:00 Cellulose 1 each STK-MED ONCE .ROUTE ; Start 04/13/16 at 13:53; Stop 04/13/16 at 13:54; Status DC Lidocaine HCl 30 ml STK-MED ONCE .ROUTE ; Start 04/13/16 at 13:53; Stop 04/13/16 at 13:54; Status DC Ondansetron HCl (Zofran) 4 mg PRN Q6HRS PRN IV Nausea; Start 04/13/16 at 14:00; Stop 04/13/16 at 20:00; Status DC Fentanyl Citrate (Fentanyl 2ml Vial) 25 mcg PRN Q5MIN PRN IV MILD PAIN Last administered on 04/13/16 17:07; Start 04/13/16 at 14:00; Stop 04/13/16 at 20:00; Status DC Fentanyl Citrate (Fentanyl 2ml Vial) 50 mcg PRN Q5MIN PRN IV MODERATE PAIN Last administered on 04/13/16 16:40; Start 04/13/16 at 14:00; Stop 04/13/16 at 20: 00; Status DC Morphine Sulfate 1 mg 1 mg PRN Q10MIN PRN IV SEVERE PAIN Last administered on 16:53; Start 04/13/16 at 14:00; Stop 04/13/16 at 20:00; Status DC Lactated Ringer's (Iv Lactated Ringers) 1,000 ml @ 30 mls/hr Q24H IV ; Start at 13:58; Stop 04/14/16 at 01:57; Status DC Lidocaine HCl 2 ml 1X PRN PRN ID IV START; Start 04/13/16 at 14:00; Stop at 20:00; Status DC Hydromorphone HCl (Dilaudid) 0.5 mg PRN Q10MIN PRN IV SEV PAIN,Second choice; Start 04/13/16 at 14:00; Stop 04/13/16 at 20:00; Status DC Prochlorperazine Edisylate (Compazine) 5 mg PACU PRN PRN IV NAUSEA; Start at 14:00; Stop 04/13/16 at 20:00; Status DC Lactobacillus Acidophilus 1 tab 1 tab TIDWMEALS PO Last administered on 08:23; Start 04/13/16 at 17:00 Propofol (Diprivan) 20 ml @ As Directed STK-MED ONCE IV ; Start 04/13/16 at 15:02 ; Stop 04/13/16 at 15:03; Status DC Lidocaine HCl 100 mg STK-MED ONCE .ROUTE ; Start 04/13/16 at 15:02; Stop 04/13/16 at 15:03; Status DC Sevoflurane (Ultane) 15 ml STK-MED ONCE IH ; Start 04/13/16 at 15:29; Stop at 15:30; Status DC Ondansetron HCl (Zofran) 4 mg STK-MED ONCE .ROUTE ; Start 04/13/16 at 15:39; Stop 04/13/16 at 15:40; Status DC Acetaminophen/ Hydrocodone Bitart 2 tab 2 tab PRN Q4HRS PRN PO PAIN MILD TO MOD Last administered on 04/16/16 18:38; Start 04/13/16 at 21:15 Vancomycin HCl/ Sodium Chloride (Iv Sodium Chloride 0.9% 500ml Bag) 500 ml @ 250 mls/hr Q24H IV Last administered on 04/15/16 15:25; Start 04/14/16 at 16: 00; Stop 04/15/16 at 15:30; Status DC Morphine Sulfate 2 mg PRN Q2HR PRN IV PAIN Last administered on 04/17/16 10:39 ; Start 04/14/16 at 21:15; Stop 04/17/16 at 11:07; Status DC Morphine Sulfate 1 mg 1 mg PRN Q2HR PRN IV PAIN; Start 04/14/16 at 21:15; Stop 04/17/16 at 11:07; Status DC Ertapenem/Sodium Chloride (Invanz/Iv Sodium Chloride 0.9% 50ml) 50 ml @ 100 mls /hr Q24H IV Last administered on 04/17/16 10:40; Start 04/17/16 at 10:00 Fentanyl Citrate (Fentanyl 2ml Vial) 50 mcg Q4HRS PRN IV PAIN; Start 04/17/16 at 11:15; Status UNV Active Scripts Active Glipizide Er (Glipizide) 5 Mg Tab.er.24 10 Mg PO BIDWMEALS 30 Days Proair Hfa Inhaler (Albuterol Sulfate) 8.5 Gm Hfa.aer.ad 1 Puff INH PRN Q6HRS PRN Atenolol 25 Mg Tablet 25 Mg PO DAILY Reported Metformin Hcl 1,000 Mg Tablet 1 Tab PO BID Hydralazine Hcl 25 Mg Tablet 25 Mg PO DAILY Hydrochlorothiazide Tablet (Hydrochlorothiazide) 25 Mg Tablet 1 Tab PO DAILY Hydrocodone-Apap 7.5-325 (Hydrocodone Bit/Acetaminophen) 1 Each Tablet 1 Tab PO PRN Q6HRS PRN Vitals/I & O Vital Sign - Last 24 Hours 04/16/16 04/16/16 04/16/16 04/16/16 11:38 12:22 12:38 15:00 Temp 97.5 97.5 Pulse 72 Resp 16 B/P 132/63 Pulse Ox 93 93 96 O2 Delivery Room Air Room Air Room Air O2 Flow Rate 2.0 2.0 04/16/16 04/16/16 04/16/16 04/16/16 15:23 16:23 18:38 19:00 Temp 97.5 97.5 Pulse 76 Resp 16 B/P 141/69 Pulse Ox 93 93 93 94 O2 Delivery Room Air Room Air Room Air O2 Flow Rate 2.0 2.0 2.0 04/16/16 04/16/16 04/16/16 04/16/16 19:45 19:45 21:30 21:34 Pulse 76 B/P 141/69 O2 Delivery Room Air Room Air Room Air 04/16/16 04/16/16 04/17/16 04/17/16 22:30 23:23 01:43 03:23 Temp 97.7 97.8 97.7 97.8 Pulse 84 77 Resp 16 16 B/P 125/62 118/55 Pulse Ox 94 95 O2 Delivery Room Air Room Air Room Air Room Air 04/17/16 04/17/16 04/17/16 04/17/16 06:05 06:35 07:00 08:18 Temp 96.3 96.3 Pulse 77 Resp 20 B/P 134/69 Pulse Ox 94 O2 Delivery Room Air Room Air Room Air Room Air 04/17/16 04/17/16 04/17/16 04/17/16 08:23 08:24 08:24 08:25 Pulse 77 77 77 B/P 134/69 134/69 134/69 Pulse Ox 97 O2 Delivery Room Air 04/17/16 04/17/16 10:39 10:52 Temp 96.7 96.7 Pulse 83 Resp 18 B/P 113/54 Pulse Ox 93 O2 Delivery Room Air Room Air Intake and Output 04/16/16 04/16/16 04/17/16 15:00 23:00 07:00 Intake Total 99.3 ml 300 ml Balance 99.3 ml 300 ml NII MOJICA APRN Apr 17, 2016 11:29
[2016-04-17 12:03] LABS: BASO % 1 % (0-3); EOS % 5 % (0-3); HEMATOCRIT 28.6 % (36.0-47.0); HEMOGLOBIN 9.1 g/dL (12.0-15.5); LYMPH # 1.1 x10^3/uL (1.0-4.8); LYMPH % 16 % (24-48); MEAN CORPUSCULAR HEMOGLOBIN 26 pg (25-35); MEAN CORPUSCULAR HGB CONC 32 g/dL (31-37); MEAN CORPUSCULAR VOLUME 83 fL (79-100); MONO % 6 % (0-9); NEUT % 73 % (31-73); PLATELET COUNT 226 x10^3/uL (140-400); RED BLOOD COUNT 3.44 x10^6/uL (3.50-5.40); RED CELL DISTRIBUTION WIDTH 18.3 % (11.5-14.5); WHITE BLOOD COUNT 6.7 x10^3/uL (4.0-11.0)
[2016-04-17 12:20] LABS: CALCIUM 8.6 mg/dL (8.5-10.1); CREATININE 1.3 mg/dL (0.6-1.0); GFR 39.6; POTASSIUM 4.5 mmol/L (3.5-5.1)
[2016-04-17] MEDS: FENTANYL PF 100 MCG/2 ML VIAL. IV PRN ×2 (14:08→21:34)
[2016-04-17 15:00] VITALS: BP 124/51
[2016-04-17 19:27] VITALS: BP 119/58
[2016-04-17 23:25] VITALS: BP 123/60
[2016-04-18] MEDS: HYDROCODONE/APAP 5/325MG TABLET. PO PRN ×5 (00:18→18:18)
[2016-04-18 03:25] VITALS: BP 118/65
[2016-04-18 07:00] VITALS: BP 109/51
[2016-04-18] MEDS: INSULIN ASPART 300 UNITS/3 ML INSULN.PEN SQ SCH ×3 (08:00→17:00)
--- NOTE | 2016-04-18 08:09 | PDOC ---
Provider Note Provider Note AF VSS awake and alert left foot with heel VAC dressing, no erythema A/P s/p left heel/foot debridement - IV antibiotic per ID for osteo - follow up with Dr. Chen in the wound care center in 2 weeks JACIEL LEA MD Apr 18, 2016 08:09
[2016-04-18] MEDS: LOSARTAN POTASSIUM 50 MG TABLET. PO SCH (09:59)
[2016-04-18] MEDS: FUROSEMIDE 20 MG/2 ML VIAL IVP SCH (09:59)
[2016-04-18] MEDS: MULTIVITAMIN with MINERAL TABLET. PO SCH (09:59)
[2016-04-18] MEDS: ASCORBIC ACID 500 MG TABLET PO SCH ×2 (10:00→21:21)
[2016-04-18] MEDS: METFORMIN 1,000 MG TABLET PO SCH ×2 (10:00→18:12)
[2016-04-18] MEDS: ATENOLOL 25 MG TABLET PO SCH (10:00)
[2016-04-18] MEDS: GLIPIZIDE ER 5 MG TAB.ER.24 PO SCH ×2 (10:00→18:11)
[2016-04-18] MEDS: LACTOBACILLUS ACIDOPH & BULGAR 1 TABLET. PO SCH ×3 (10:00→18:11)
[2016-04-18] MEDS: HYDROCHLOROTHIAZIDE 25 MG TABLET PO SCH (10:01)
[2016-04-18] MEDS: HYDRALAZINE 25 MG TABLET PO SCH ×2 (10:01→21:22)
[2016-04-18] MEDS: ERTAPENEM 1 GM in IV NORMAL SALINE 50ML 50 ML IV SCH (10:02)
[2016-04-18 11:00] VITALS: BP 140/73
[2016-04-18] MEDS: ALBUTEROL SULFATE 2.5 MG/3 ML NEBU. NEB PRN (11:37)
--- NOTE | 2016-04-18 14:38 | PDOC ---
OBJECTIVE Vital Signs Vital Signs Date Time Temp Pulse Resp B/P Pulse Ox O2 Delivery O2 Flow Rate FiO2 04/18/16 13:44 94 Room Air 04/18/16 11:38 94 Room Air 04/18/16 11:20 94 Room Air 04/18/16 11:00 97.5 76 16 140/73 93 Room Air 97.5 04/18/16 10:21 93 Room Air 04/18/16 10:01 79 109/51 04/18/16 10:00 79 109/51 04/18/16 09:59 79 109/51 04/18/16 08:15 Room Air 04/18/16 07:00 97.4 79 16 109/51 93 Room Air 97.4 04/18/16 06:16 Room Air 04/18/16 03:25 98.1 75 18 118/65 93 Room Air 98.1 04/18/16 00:18 Room Air 04/17/16 23:25 97.8 85 18 123/60 94 Room Air 97.8 04/17/16 22:00 Room Air 04/17/16 21:34 Room Air 04/17/16 21:30 83 124/51 04/17/16 19:30 Room Air 04/17/16 19:30 Room Air 04/17/16 19:27 98.3 89 18 119/58 93 Room Air 98.3 04/17/16 16:27 Room Air 04/17/16 15:00 98.1 83 18 124/51 94 Room Air 98.1 I & O Intake and Output 04/18/16 07:00 Intake Total 500 ml Balance 500 ml Intake Oral 500 ml # Voids 4 PHYSICAL EXAM Physical Exam General: No acute distress. Laying in bed. Mental status: Alert and oriented. Depressed appearing Chest: Clear to auscultation bilaterally. Good air movement anteriorly. CV: Normal rate. Regular rhythm. No murmur. Abdomen: Normal bowel sounds. Soft. Not distended. No tenderness. No guarding. No rebound. Extremities: Bilateral lower extremity edema. Somewhat improved. Heel protector with wound VAC on the left heel. ASSESSMENT/PLAN Assessment/Plan 1. Left calcaneal osteomyelitis: Postop day # 5 status post debridement and wound vac placement. Vascular surgery and infectious disease following; abx tapered to Meropenem. Change to Invanz 1 gm q 24 hrs per ID on transfer, d/w Dr Montilla 2. DM2: Uncontrolled. HbA1C 08/20 was 9.2, repeat this admission was 9.6. Pt continued on oral medications of Metformin 1000mg BID and Glipizide 10mg BID. Will D/C Levemir, has SSI available. Blood sugar fairly well controlled but appetite is not great. Continue to monitor. 3. Hypertension: moderately controlled. Pt continued on Hydralazine 25mg BID, HCTZ 25mg, Atenolol 25mg qday and recently started on Losartan 50mg. CTM 4. Low back pain: Stable. 5. Lower extremity edema. Elevated BNP. Pt receiving 20mg IV Lasix daily. We'll continue with Lasix 20 mg daily by mouth at discharge. Had echocardiogram last year with an EF of 60%. 6. Diarrhea. C. difficile was negative. Start probiotic as she was on antibiotics recently. Consider Questran when necessary 7. Debilitation: Patient will need alf. 8. Anemia- mild, chronic. No acute bleeding. 9. CKD- stable. Pt's Cr currently 1.3, electrolytes WNL. Will need to monitor potassium with daily Lasix although has not needed any supplements less far. 10 Dispo: to [facility] when approved by insurance for IV abx and wound vac, wound care. Abx for 6 weeks from 04/13/18 Problems: COMMENT Lab Laboratory Tests Test 04/17/16 16:07 04/17/16 21:14 04/18/16 07:42 Glucose (Fingerstick) 132mg/dL (70-99) 167mg/dL (70-99) 105mg/dL (70-99) SANJIV DAVIS MD Apr 18, 2016 14:38
[2016-04-18 19:00] VITALS: BP 159/87
[2016-04-18 23:27] VITALS: BP 132/72
[2016-04-19 03:31] VITALS: BP 121/59
[2016-04-19 07:00] VITALS: BP 154/85
[2016-04-19] MEDS: INSULIN ASPART 300 UNITS/3 ML INSULN.PEN SQ SCH ×2 (08:00→12:00)
--- NOTE | 2016-04-19 08:15 | PDOC ---
SUBJECTIVE Subjective Feeling okay. Pain controlled. No shortness of breath. Eating okay. OBJECTIVE Vital Signs Vital Signs Date Time Temp Pulse Resp B/P Pulse Ox O2 Delivery O2 Flow Rate FiO2 04/19/16 03:31 97.4 70 18 121/59 92 Room Air 97.4 04/18/16 23:27 96.4 66 18 132/72 93 Room Air 96.4 04/18/16 21:22 78 159/87 04/18/16 19:47 Room Air 04/18/16 19:10 94 Room Air 2.0 04/18/16 19:00 97.5 78 18 159/87 96 Room Air 97.5 04/18/16 18:18 94 Room Air 2.0 04/18/16 14:59 94 Room Air 04/18/16 13:44 94 Room Air 04/18/16 11:38 94 Room Air 04/18/16 11:00 97.5 76 16 140/73 93 Room Air 97.5 04/18/16 10:21 93 Room Air 04/18/16 10:01 79 109/51 04/18/16 10:00 79 109/51 04/18/16 09:59 79 109/51 04/18/16 08:15 Room Air I & O Intake and Output 04/19/16 07:00 Intake Total 360 ml Output Total 303 ml Balance 57 ml Intake Oral 360 ml Output Urine Total 303 ml PHYSICAL EXAM Physical Exam General: No acute distress. Laying in bed. Mental status: Alert and oriented. Depressed appearing Chest: Clear to auscultation bilaterally. Good air movement anteriorly. CV: Normal rate. Regular rhythm. No murmur. Abdomen: Normal bowel sounds. Soft. Not distended. No tenderness. No guarding. No rebound. Extremities: Bilateral lower extremity edema. Somewhat improved. Heel protector with wound VAC on the left foot. ASSESSMENT/PLAN Assessment/Plan 1. Left calcaneal osteomyelitis: Postop day #6 status post debridement and wound vac placement. Vascular surgery and infectious disease following; abx tapered to Meropenem. Change to Invanz 1 gm q 24 hrs per ID on transfer, d/w Dr Montilla 2. DM2: Uncontrolled. HbA1C 08/20 was 9.2, repeat this admission was 9.6. Pt continued on oral medications of Metformin 1000mg BID and Glipizide 10mg BID. Will D/C Levemir, has SSI available. Blood sugar fairly well controlled but appetite is not great. Continue to monitor. 3. Hypertension: moderately controlled. Pt continued on Hydralazine 25mg BID, HCTZ 25mg, Atenolol 25mg qday and recently started on Losartan 50mg. CTM 4. Low back pain: Stable. 5. Lower extremity edema. Elevated BNP. Pt receiving 20mg IV Lasix daily. We'll continue with Lasix 20 mg daily by mouth at discharge. Had echocardiogram last year with an EF of 60%. 6. Diarrhea. C. difficile was negative. Start probiotic as she was on antibiotics recently. Consider Questran when necessary 7. Debilitation: Patient will need prison. 8. Anemia- mild, chronic. No acute bleeding. 9. CKD- stable. Pt's Cr currently 1.3, electrolytes WNL. Will need to monitor potassium with daily Lasix although has not needed any supplements less far. 10 Dispo: to [facility] when approved by insurance, hopefully today, for IV abx and wound vac, wound care. Abx for 6 weeks from 04/13/18 Problems: COMMENT Lab Laboratory Tests Test 04/18/16 16:56 04/18/16 21:08 Glucose (Fingerstick) 108mg/dL (70-99) 82mg/dL (70-99) SANJIV DAVIS MD Apr 19, 2016 08:15
[2016-04-19] MEDS: HYDROCODONE/APAP 5/325MG TABLET. PO PRN ×2 (09:16→12:28)
[2016-04-19] MEDS: LOSARTAN POTASSIUM 50 MG TABLET. PO SCH (09:17)
[2016-04-19] MEDS: FUROSEMIDE 20 MG/2 ML VIAL IVP SCH (09:18)
[2016-04-19] MEDS: HYDROCHLOROTHIAZIDE 25 MG TABLET PO SCH (09:18)
[2016-04-19] MEDS: ASCORBIC ACID 500 MG TABLET PO SCH (09:18)
[2016-04-19] MEDS: HYDRALAZINE 25 MG TABLET PO SCH (09:18)
[2016-04-19] MEDS: ATENOLOL 25 MG TABLET PO SCH (09:19)
[2016-04-19] MEDS: MULTIVITAMIN with MINERAL TABLET. PO SCH (09:19)
[2016-04-19] MEDS: LACTOBACILLUS ACIDOPH & BULGAR 1 TABLET. PO SCH ×2 (09:19→12:24)
[2016-04-19] MEDS: METFORMIN 1,000 MG TABLET PO SCH (09:21)
[2016-04-19] MEDS: GLIPIZIDE ER 5 MG TAB.ER.24 PO SCH (09:21)
[2016-04-19] MEDS: ERTAPENEM 1 GM in IV NORMAL SALINE 50ML 50 ML IV SCH (09:27)
[2016-04-19 11:00] VITALS: BP 154/77
[2016-04-19] MEDS: FENTANYL PF 100 MCG/2 ML VIAL. IV PRN (16:04)
== END 2016-04-19 23:57 | DRG 628 ==
LOC: 4 NORTH 09:36
PROVIDERS: ADMIT Family Medicine; ATTEND Family Medicine
PROC: 0QBM0ZZ Excision of Left Tarsal, Open Approach (ICD-10-PCS; principal; 2016-04-13 15:00)
DX: E11.69 Type 2 diabetes mellitus with other specified complication (principal); E43 Unspecified severe protein-calorie malnutrition; M86.172 Other acute osteomyelitis, left ankle and foot; I13.0 Hypertensive heart and chronic kidney disease with heart failure and stage 1 through stage 4 chronic kidney disease, or unspecified chronic kidney disease; L97.429 Non-pressure chronic ulcer of left heel and midfoot with unspecified severity; E11.22 Type 2 diabetes mellitus with diabetic chronic kidney disease; E11.621 Type 2 diabetes mellitus with foot ulcer; D64.9 Anemia, unspecified; E11.40 Type 2 diabetes mellitus with diabetic neuropathy, unspecified; E11.65 Type 2 diabetes mellitus with hyperglycemia; E11.628 Type 2 diabetes mellitus with other skin complications; I50.9 Heart failure, unspecified; F32.9 Major depressive disorder, single episode, unspecified; R09.02 Hypoxemia; N18.9 Chronic kidney disease, unspecified; M54.5 Low back pain; Z88.1 Allergy status to other antibiotic agents; Z88.8 Allergy status to other drugs, medicaments and biological substances; Z79.4 Long term (current) use of insulin; Z79.84 Long term (current) use of oral hypoglycemic drugs; Z88.0 Allergy status to penicillin; Z91.19 Patient's noncompliance with other medical treatment and regimen; Z95.0 Presence of cardiac pacemaker; Z68.35 Body mass index [BMI] 35.0-35.9, adult
CPT/HCPCS: 36415; 78315; 80048; 80053; 80202; 82947; 83036; 83880; 85027; 85651; 87071; 87075; 87186; 87205; 87324; 93971; 94640; 96374; A4215; A9503; J1335; J1815; J2185; J2270; J2405; J2704; J3010; J3370; J7040; 97110; 97530; 97535; 97605

== ENCOUNTER → 2017-12-17 | Outpatient (CLI) | payer BC ==
[2017-11-13 11:00] VITALS: BP 148/59
[~2017-12-17] MED LIST changes: +AMLO2.5T2 PO; +APIX2.5T PO; +APIX5TAB PO; +FURO-68 PO; +FURO40TA4 PO; +GLIP-112 PO; -GLIP10TA20 PO; +HYDR-2758 PO; +LIDO700A39 TD; -METF10002 PO; +METF10007 PO; +POTA20TA4 PO; +POTA20TA82 PO
== END | disposition home or self-care (01) ==
LOC: PMGWOUND 08:15
PROVIDERS: ATTEND Emergency Medicine Undersea and Hyperbaric Medicine
DX: E11.621 Type 2 diabetes mellitus with foot ulcer (principal); L97.521 Non-pressure chronic ulcer of other part of left foot limited to breakdown of skin; I13.0 Hypertensive heart and chronic kidney disease with heart failure and stage 1 through stage 4 chronic kidney disease, or unspecified chronic kidney disease; E11.22 Type 2 diabetes mellitus with diabetic chronic kidney disease; N18.3 Chronic kidney disease, stage 3 (moderate); I50.9 Heart failure, unspecified; E11.40 Type 2 diabetes mellitus with diabetic neuropathy, unspecified; E11.36 Type 2 diabetes mellitus with diabetic cataract; L84 Corns and callosities; F32.9 Major depressive disorder, single episode, unspecified; M19.90 Unspecified osteoarthritis, unspecified site; I25.10 Atherosclerotic heart disease of native coronary artery without angina pectoris; Z87.891 Personal history of nicotine dependence; Z90.710 Acquired absence of both cervix and uterus; Z86.73 Personal history of transient ischemic attack (TIA), and cerebral infarction without residual deficits; Z90.49 Acquired absence of other specified parts of digestive tract
CPT/HCPCS: 93923; 99214; G0463

== ENCOUNTER → 2017-12-24 | Outpatient (CLI) | payer BC ==
[2017-11-13 11:00] VITALS: BP 148/59
[~2017-12-24] MED LIST changes: -GLIP-112 PO; +GLIP10TA24 PO
== END | disposition home or self-care (01) ==
LOC: PMGWOUND 08:11
PROVIDERS: ATTEND Emergency Medicine Undersea and Hyperbaric Medicine
DX: L84 Corns and callosities (principal); E11.621 Type 2 diabetes mellitus with foot ulcer; L97.521 Non-pressure chronic ulcer of other part of left foot limited to breakdown of skin; E11.40 Type 2 diabetes mellitus with diabetic neuropathy, unspecified; E11.36 Type 2 diabetes mellitus with diabetic cataract; I13.0 Hypertensive heart and chronic kidney disease with heart failure and stage 1 through stage 4 chronic kidney disease, or unspecified chronic kidney disease; E11.22 Type 2 diabetes mellitus with diabetic chronic kidney disease; N18.3 Chronic kidney disease, stage 3 (moderate); I50.9 Heart failure, unspecified; F32.9 Major depressive disorder, single episode, unspecified; M19.90 Unspecified osteoarthritis, unspecified site; I25.10 Atherosclerotic heart disease of native coronary artery without angina pectoris; Z86.73 Personal history of transient ischemic attack (TIA), and cerebral infarction without residual deficits; Z87.891 Personal history of nicotine dependence; Z90.49 Acquired absence of other specified parts of digestive tract; Z90.710 Acquired absence of both cervix and uterus
CPT/HCPCS: 99214; G0463

== ENCOUNTER 2018-03-03 10:30 | Inpatient (IN) | payer BC ==
[~2018-03-03] VITALS: Ht 170.2 cm; Wt 83.5 kg
[~2018-03-03 10:30] MED LIST changes: +ALBU2.5V8 INH; +HYDR-2145 PO; -HYDR-2758 PO; +HYDR-2761 PO; -HYDR-2762 PO; +HYDR-2765 PO; -HYDR25TA9 PO; +LIDO700A21 TD; -LIDO700A39 TD; -OXYC-323 PO; +OXYC1TAB15 PO; -PROAIR HFA8.5 GM INH
[2018-03-03] MEDS ORDERED: IV NORMAL SALINE 1000ML BAG 1,000 ML IV SCH (10:52)
[2018-03-03 11:28] LABS: BASO # 0.1 x10^3/uL (0.0-0.2); BASO % 0 % (0-3); EOS % 0 % (0-3); HEMATOCRIT 34.2 % (36.0-47.0); HEMOGLOBIN 10.9 g/dL (12.0-15.5); LYMPH # 0.4 x10^3/uL (1.0-4.8); LYMPH % 2 % (24-48); MEAN CORPUSCULAR HEMOGLOBIN 29 pg (25-35); MEAN CORPUSCULAR HGB CONC 32 g/dL (31-37); MEAN CORPUSCULAR VOLUME 90 fL (79-100); MONO # 0.6 x10^3/uL (0.0-1.1); MONO % 3 % (0-9); NEUT # 20.7 x10^3uL (1.8-7.7); NEUT % 95 % (31-73); PLATELET COUNT 402 x10^3/uL (140-400); RED BLOOD COUNT 3.79 x10^6/uL (3.50-5.40); RED CELL DISTRIBUTION WIDTH 15.3 % (11.5-14.5); WHITE BLOOD COUNT 21.8 x10^3/uL (4.0-11.0)
[2018-03-03 11:35] LABS: CALCIUM 9.5 mg/dL (8.5-10.1); CREATININE 1.7 mg/dL (0.6-1.0); GFR 28.9
[2018-03-03 11:39] LABS: POTASSIUM 5.5 mmol/L (3.5-5.1)
[2018-03-03 11:41] LABS: ALBUMIN 2.4 g/dL (3.4-5.0); ALBUMIN/GLOBULIN RATIO 0.5 (1.0-1.7); TOTAL BILIRUBIN 0.6 mg/dL (0.2-1.0); TOTAL PROTEIN 7.6 g/dL (6.4-8.2)
[2018-03-03] MEDS ORDERED: ONDANSETRON PF 4 MG/2 ML VIAL. ONE (11:53)
[2018-03-03] MEDS ORDERED: ONDANSETRON PF 4 MG/2 ML VIAL. IM ONE (12:15)
[2018-03-03 12:53] LABS: BILIRUBIN,URINE SMALL (NEG); CLARITY,URINE CLEAR; COLOR,URINE YELLOW; NITRITE,URINE NEGATIVE (NEG); PROTEIN,URINE 30 mg/dL (NEG-TRACE)
[2018-03-03] MEDS ORDERED: ONDANSETRON PF 4 MG/2 ML VIAL. IV ONE (13:00)
--- NOTE | 2018-03-03 13:00 | PHYS DOC ---
Past Medical History Past Medical History: CAD, Dementia, Diabetes-Type II, Hypertension Additional Past Medical Histor: Bradycardia Past Surgical History: Cholecystectomy, Hysterectomy, Pacemaker, Tubal ligation , Other Additional Past Surgical Histo: Pacemaker 2009, Hernia, left heel surgery Alcohol Use: None Drug Use: None Adult General Chief Complaint Chief Complaint: NAUSEA/VOMITING/DIARRHA HPI HPI Patient is an 82-year-old female who presents with complaint of just not feeling well. Patient states that she has been feeling sick for the last couple of weeks with intermittent nausea and vomiting. She denies any diarrhea. She states that she just doesn't feel well. She denies chest pain. She does admit some shortness of breath especially when she lies down flat or exerts herself. She also indicates that she has been having drainage from the site of her pacemaker. Patient had battery change in her pacemaker back in October and states that she has had problems with drainage since. Review of Systems Review of Systems Constitutional: Denies fever or chills [] Respiratory: Admits to shortness of breath [] Cardiovascular: No additional information not addressed in HPI [] GI: Denies abdominal pain. Complains of nausea and vomiting. [] : Denies dysuria or hematuria [] Musculoskeletal: Denies back pain or joint pain [] Integument: Denies rash or skin lesions [] Neurologic: Denies headache, focal weakness or sensory changes [] All other systems were reviewed and found to be within normal limits, except as documented in this note. Current Medications Current Medications Current Medications Medications (Trade) Dose Ordered Sig/Leonel Start Time Stop Time Status Last Admin Dose Admin Furosemide (Lasix) 40 mg 1X ONCE 03/03/18 13:45 03/03/18 13:46 Insulin Human Regular (HumuLIN R VIAL) 10 unit 1X ONCE 03/03/18 13:45 03/03/18 13:46 Ondansetron HCl (Zofran) 4 mg 1X ONCE 03/03/18 13:00 03/03/18 13:01 DC 03/03/18 12:49 4 MG Piperacillin Sod/ Tazobactam Sod 3.375 gm/Sodium Chloride 50 ml @ 100 mls/hr 1X ONCE 03/03/18 13:45 03/03/18 14:14 UNV Sodium Chloride 1,000 ml @ 1,000 mls/hr Q1H 03/03/18 10:52 03/03/18 11:51 DC 03/03/18 11:15 1,000 MLS/HR Vancomycin HCl 250 ml @ 250 mls/hr 1X ONCE 03/03/18 13:45 03/03/18 14:44 UNV Allergies Allergies Allergies Coded Allergies Type Severity Reaction Last Updated Verified I S O L A T I O N *CONTACT* Allergy Unknown 11/07/17 Yes amoxicillin Adverse Reaction Mild Rash 04/12/16 Yes clavulanic acid Adverse Reaction Mild Rash 04/12/16 Yes Physical Exam Physical Exam Constitutional: Awake and alert, no acute distress, non-toxic appearance. [] HENT: Normocephalic, atraumatic, bilateral external ears normal, oropharynx dry , no oral exudates, nose normal. [] Eyes: PERRLA, EOMI, conjunctiva normal, no discharge. [] Neck: Normal range of motion, no tenderness, supple, no stridor. [] Cardiovascular: Regular rate and rhythm [] Lungs & Thorax: Good air movement is noted throughout with rales in the lung bases to auscultation [] Abdomen: Bowel sounds normal, soft, no tenderness. [] Skin: Warm, dry, no erythema, no rash. [] Extremities: No tenderness, no cyanosis, no clubbing, ROM intact. [] Neurologic: Awake and alert, no focal deficits noted. [] Current Patient Data Vital Signs Vital Signs Date Time Temp Pulse Resp B/P (MAP) Pulse Ox O2 Delivery O2 Flow Rate FiO2 03/03/18 10:40 97.4 70 16 140/74 (96) 96 Room Air 97.4 Lab Values Laboratory Tests Test 03/03/18 11:14 03/03/18 12:20 03/03/18 12:43 White Blood Count 21.8 x10^3/uL (4.0-11.0) H Red Blood Count 3.79 x10^6/uL (3.50-5.40) Hemoglobin 10.9 g/dL (12.0-15.5) L Hematocrit 34.2 % (36.0-47.0) L Mean Corpuscular Volume 90 fL (79-100) Mean Corpuscular Hemoglobin 29 pg (25-35) Mean Corpuscular Hemoglobin Concent 32 g/dL (31-37) Red Cell Distribution Width 15.3 % (11.5-14.5) H Platelet Count 402 x10^3/uL (140-400) H Neutrophils (%) (Auto) 95 % (31-73) H Lymphocytes (%) (Auto) 2 % (24-48) L Monocytes (%) (Auto) 3 % (0-9) Eosinophils (%) (Auto) 0 % (0-3) Basophils (%) (Auto) 0 % (0-3) Neutrophils # (Auto) 20.7 x10^3uL (1.8-7.7) H Lymphocytes # (Auto) 0.4 x10^3/uL (1.0-4.8) L Monocytes # (Auto) 0.6 x10^3/uL (0.0-1.1) Eosinophils # (Auto) 0.0 x10^3/uL (0.0-0.7) Basophils # (Auto) 0.1 x10^3/uL (0.0-0.2) Segmented Neutrophils % 93 % (35-66) H Band Neutrophils % 3 % (0-9) Lymphocytes % 4 % (24-48) L Platelet Estimate Adequate (ADEQUATE) Sodium Level 124 mmol/L (136-145) L Potassium Level 5.5 mmol/L (3.5-5.1) H Chloride Level 93 mmol/L (98-107) L Carbon Dioxide Level 21 mmol/L (21-32) Anion Gap 10 (6-14) Blood Urea Nitrogen 64 mg/dL (7-20) H Creatinine 1.7 mg/dL (0.6-1.0) H Estimated GFR (Cockcroft-Gault) 28.9 BUN/Creatinine Ratio 38 (6-20) H Glucose Level 477 mg/dL (70-99) H Calcium Level 9.5 mg/dL (8.5-10.1) Total Bilirubin 0.6 mg/dL (0.2-1.0) Aspartate Amino Transferase (AST) 109 U/L (15-37) H Alanine Aminotransferase (ALT) 154 U/L (14-59) H Alkaline Phosphatase 163 U/L (46-116) H Creatine Kinase 180 U/L (26-192) Troponin I Quantitative 1.025 ng/mL (0.000-0.055) YZ-Vhm-D-Type Natriuretic Peptide > 93310 pg/mL (0-449) H Total Protein 7.6 g/dL (6.4-8.2) Albumin 2.4 g/dL (3.4-5.0) L Albumin/Globulin Ratio 0.5 (1.0-1.7) L Lactic Acid Level 2.1 mmol/L (0.4-2.0) H Urine Collection Type U cath Urine Color Yellow Urine Clarity Clear Urine pH 5.0 Urine Specific [place] 1.025 Urine Protein 30 mg/dL (NEG-TRACE) Urine Glucose (UA) >=1000 mg/dL (NEG) Urine Ketones (Stick) Trace mg/dL (NEG) Urine Blood Negative (NEG) Urine Nitrite Negative (NEG) Urine Bilirubin Small (NEG) Urine Urobilinogen Dipstick 1.0 mg/dL (0.2 mg/dL) Urine Leukocyte Esterase Negative (NEG) Urine RBC 0 /HPF (0-2) Urine WBC 0 /HPF (0-4) Urine Bacteria 0 /HPF (0-FEW) Laboratory Tests 03/03/18 11:14 Laboratory Tests 03/03/18 11:14 EKG EKG [] Radiology/Procedures Radiology/Procedures [] Impressions: CHEST AP ONLY Clinical indications: ELEVATED TROPONIN COMPARISON: November 09, 2017. Findings: Small bilateral pleural effusions are evident. There is mild perihilar interstitial pulmonary edema. No pneumothorax is seen. Pacemaker is present. The heart size is normal. Mediastinum is unremarkable. The pulmonary vasculature is stable. Degenerative osteoarthritis of the left glenohumeral joint is seen. Impression: Small bilateral pleural effusions and mild perihilar interstitial pulmonary edema consistent with mild CHF. Electronically signed by: Dominik Gonzalez MD (03/03/2018 12:53 PM) [facility] Course & Med Decision Making Course & Med Decision Making Pertinent Labs and Imaging studies reviewed. (See chart for details) [] Dragon Disclaimer Dragon Disclaimer This electronic medical record was generated, in whole or in part, using a voice recognition dictation system. Departure Departure Impression: Primary Impression: Congestive heart failure Additional Impressions: NSTEMI (non-ST elevated myocardial infarction) Hyponatremia Type 2 diabetes mellitus with hyperglycemia Acute kidney injury Disposition: 09 ADMITTED INPATIENT Admitting Physician: Heavenly Villar Condition: GUARDED Referrals: SANJIV DAVIS MD (PCP) Problem Qualifiers Primary Impression: Congestive heart failure Heart failure type: unspecified Heart failure chronicity: unspecified Qualified Codes: I50.9 - Heart failure, unspecified Additional Impressions: Type 2 diabetes mellitus with hyperglycemia Diabetes mellitus watermelon inspector insulin use: unspecified watermelon inspector insulin use status Qualified Codes: E11.65 - Type 2 diabetes mellitus with hyperglycemia MANJIT PISANO Jr., DO Mar 03, 2018 13:00
[2018-03-03 13:06] LABS: BACTERIA,URINE 0 /HPF (0-FEW); RBC,URINE 0 /HPF (0-2); WBC,URINE 0 /HPF (0-4)
[2018-03-03 13:13] LABS: % BANDS 3 % (0-9); % LYMPHS 4 % (24-48); % SEGS 93 % (35-66); PLT ESTIMATE ADEQUATE (ADEQUATE)
[2018-03-03] MEDS ORDERED: INSULIN REGULAR 100 UNIT/ML 3ML VIAL. IV ONE (13:45)
[2018-03-03] MEDS ORDERED: FUROSEMIDE 40 MG/4 ML VIAL. IVP ONE (13:45)
[2018-03-03] MEDS ORDERED: VANCOMYCIN 1GM IVPB FOR OMNI 250 ML IV ONE (14:00)
[2018-03-03] MEDS ORDERED: PIPERACILLIN/TAZOBACTAM 3.375 GM in IV NORMAL SALINE 50ML 50 ML IV ONE (14:00)
[2018-03-03] MEDS ORDERED: HEPARIN for IV BOLUS 10,000 UNIT/10 ML VIAL. IV ONE (14:15)
[2018-03-03] MEDS ORDERED: HEPARIN for IV BOLUS 10,000 UNIT/10 ML VIAL. IV PRN (14:15)
[2018-03-03] MEDS ORDERED: HEPARIN 25,000UTS/500ML PREMIX 500 ML IV PRN (14:15)
[2018-03-03] MEDS ORDERED: ONDANSETRON PF 4 MG/2 ML VIAL. IV PRN ×2 (14:15→17:15)
--- NOTE | 2018-03-03 15:07 | EKG ---
[facility] [address] [place] [address] Test Date: 2018-03-03 Test Time: 10:45:45 Pat Name: GIUSEPPE DURHAM Department: Room: 103 1 Gender: F Gasoline Tester: : 1935 Requested By: MANJIT PISANO Order Number: [id number] Reading MD: Jay Armas MD Measurements Intervals Spray Rate: 70 P: -24 DC: 190 QRS: -27 QRSD: 122 T: 104 QT: 432 QTc: 470 Interpretive Statements SINUS RHYTHM RBBB 1ST DEGREE AVB CANNOT RULE OUT INFERIOR INFARCT Electronically Signed On 03-04-2018 12:53:00 AUTOMATION ENGINEER by Jay Armas MD
[2018-03-03] MEDS ORDERED: DEXTROSE 50% 25 GM / 50ML DISP.SYRIN. IV PRN (15:45)
[2018-03-03] MEDS ORDERED: ALBUTEROL SULFATE 2.5 MG/3 ML NEBU. INH PRN (15:45)
--- NOTE | 2018-03-03 15:50 | RAD ---
CT abdomen pelvis without contrast dated 03/03/2018. Comparison made to 11/05/2017. Clinical data indication: Vomiting and elevated white blood cell count. TECHNIQUE: Contiguous axial imaging of the abdomen and pelvis performed without the administration of intravenous contrast. One or more of the following individualized dose reduction techniques were utilized for this examination: 1. Automated exposure control 2. Adjustment of the mA and/or kV according to patient size 3. Use of iterative reconstruction technique. FINDINGS: Limited images of lung bases show small bilateral pleural effusions. There is patchy groundglass opacity in the lower lobes. Heart size within normal limits. No pericardial effusion. Coronary artery calcifications. Solid abdominal viscera not well evaluated in the absence of contrast material. No apparent attenuation abnormality of the liver or spleen. There is fatty replacement of the pancreas. Adrenal glands and kidneys are unremarkable. No apparent stone or hydronephrosis. Unopacified GI tract normal in caliber and contour. No focal bowel wall thickening. No inflammatory stranding in the mesentery. The appendix is normal in caliber. No ascites or lymphadenopathy. Abdominal aorta normal in caliber. Images of pelvis show nondistended urinary bladder. Uterus is surgically absent. No free pelvic fluid or pelvic lymphadenopathy. Small left inguinal hernia containing only fat, unchanged. The previously described right inguinal hernia is no longer visualized and may been repaired in the interim. Small amount of ascites. No lymphadenopathy. Bone windows show no acute findings. There is multilevel spondylosis. Wedge compression deformities of T9, T12 and L2 are similar to prior study. IMPRESSION: 1. No acute abnormality of abdomen or pelvis. 2. Small bilateral pleural effusions with small amount of ascites. 3. Interval repair of right inguinal hernia. There is a small fat-containing inguinal hernia on the left, unchanged. 4. Multiple thoracic and lumbar wedge compression fractures, unchanged from prior exam. Electronically signed by: Nathanael Shaw MD (03/03/2018 3:45 PM) [facility] [place]
[2018-03-03 16:03] VITALS: BP 125/67
[2018-03-03] MEDS ORDERED: amLODIPine BESYLATE 5 MG TABLET PO SCH (16:30)
[2018-03-03] MEDS: INSULIN LISPRO 300 UNITS/3 ML INSULN.PEN. SQ SCH ×2 (16:49→16:50)
[2018-03-03] MEDS ORDERED: ZOLPIDEM 5 MG TABLET. PO PRN (17:15)
[2018-03-03] MEDS: ATENOLOL 25 MG TABLET. PO SCH (17:31)
[2018-03-03 19:00] VITALS: BP 120/70
--- NOTE | 2018-03-03 19:27 | NUR ---
Received pt as CVC admit to room 103 at 1600,arrived per bed.Positioned for comfort tele placed.Consults notified.Heparin Drip adjusted based on admit weight 85kg per built in bed scale.
--- NOTE | 2018-03-03 20:43 | PDOC1 ---
History and Physical Date of Admission Date of Admission DATE: 03/03/18 TIME: 20:32 Source Source: Chart review, Patient History of Present Illness History of Present Illness Ms Diaz is an 82-year-old female who presents with complaint of just not feeling well. She complains of pain, but I think it was more nausea and lethargy. IN the ER, she reported feeling sick for the last couple of weeks with intermittent nausea and vomiting. She has little PO intake, normal stool, but not much. no chest pain, some dyspena, marked weakess, and general malaise. She also indicates that she has been having drainage from the site of her pacemaker. Past Medical History Cardiovascular: CHF, HTN Pulmonary: No pertinent hx GI: No pertinent hx Heme/Onc: No pertinent hx Hepatobiliary: No pertinent hx Psych: Depression Musculoskeletal: Osteoarthritis Rheumatologic: No pertinent hx Infectious disease: No pertinent hx Renal/: No pertinent hx Endocrine: Diabetes Past Surgical History Past Surgical History: Pacemaker, Cholecystectomy, Hernia Repair, Tubal Ligation, Hysterectomy, Other Family History Family History: Heart Disease Family History: Other Social History Smoke: No ALCOHOL: none Drugs: None Current Problem List Problem List Problems Medical Problems: (1) Acute kidney injury Status: Acute (2) Congestive heart failure Status: Acute (3) Hyponatremia Status: Acute (4) NSTEMI (non-ST elevated myocardial infarction) Status: Acute (5) Type 2 diabetes mellitus with hyperglycemia Status: Acute Current Medications Current Medications Current Medications Sodium Chloride 1,000 ml @ 1,000 mls/hr Q1H IV Last administered on 03/03/18at 11:15; Start 03/03/18 at 10:52; Stop 03/03/18 at 11:51; Status DC Ondansetron HCl (Zofran) 4 mg STK-MED ONCE .ROUTE ; Start 03/03/18 at 11:53; Stop 03/03/18 at 11:55; Status DC Ondansetron HCl (Zofran) 4 mg 1X ONCE IM ; Start 03/03/18 at 12:15; Stop at 12:16; Status DC Ondansetron HCl (Zofran) 4 mg 1X ONCE IV Last administered on 03/03/18at 12:49 ; Start 03/03/18 at 13:00; Stop 03/03/18 at 13:01; Status DC Insulin Human Regular (HumuLIN R VIAL) 10 unit 1X ONCE IV Last administered on 03/03/18at 13:59; Start 03/03/18 at 13:45; Stop 03/03/18 at 13:46; Status DC Furosemide (Lasix) 40 mg 1X ONCE IVP Last administered on 03/03/18at 13:57; Start 03/03/18 at 13:45; Stop 03/03/18 at 13:46; Status DC Vancomycin HCl 250 ml @ 250 mls/hr 1X ONCE IV Last administered on 03/03/18at 14:57; Start 03/03/18 at 14:00; Stop 03/03/18 at 14:59; Status DC Piperacillin Sod/ Tazobactam Sod 3.375 gm/Sodium Chloride 50 ml @ 100 mls/hr 1X ONCE IV Last administered on 03/03/18at 14:03; Start 03/03/18 at 14:00; Stop 03/03/18 at 14:29; Status DC Ondansetron HCl (Zofran) 4 mg PRN Q8HRS PRN IV NAUSEA/VOMITING; Start 03/03/18 at 14:15; Stop 03/03/18 at 17:14; Status DC Heparin Sodium (Porcine) (Heparin Sodium) 4,000 unit 1X ONCE IV Last administered on 03/03/18at 14:58; Start 03/03/18 at 14:15; Stop 03/03/18 at 14:16 ; Status DC Heparin Sodium/ Dextrose 500 ml @ 17.28 mls/ hr CONT PRN IV SEE I/O RECORD Last administered on 03/03/18at 15:00; Start 03/03/18 at 14:15 Heparin Sodium (Porcine) (Heparin Sodium) 1,800 unit PRN Q6HRS PRN IV FOR UFH LEVEL LESS THAN 0.2; Start 03/03/18 at 14:15 Insulin Human Lispro (HumaLOG) 0-7 UNITS TIDWMEALS SQ Last administered on 03/03at 16:49; Start 03/03/18 at 17:00 Dextrose (Dextrose 50%-Water Syringe) 12.5 gm PRN Q15MIN PRN IV SEE COMMENTS; Start 03/03/18 at 15:45 Albuterol Sulfate (Ventolin Neb Soln) 2.5 mg PRN Q6HRS PRN INH SHORTNESS OF BREATH; Start 03/03/18 at 15:45 Apixaban (Eliquis) 2.5 mg BID PO ; Start 03/03/18 at 21:00; Status UNV Acetaminophen/ Hydrocodone Bitart (Lortab 5/325) 1 tab PRN Q4HRS PRN PO moderate pain; Start 03/03/18 at 15:45 Amlodipine Besylate (Norvasc) 2.5 mg DAILY PO ; Start 03/03/18 at 16:30; Stop at 17:16; Status DC Atenolol (Tenormin) 25 mg DAILY PO Last administered on 03/03/18at 17:31; Start 03/03/18 at 16:30 Insulin Glargine (Lantus) 12 units QHS SQ ; Start 03/03/18 at 21:00 Insulin Human Lispro (HumaLOG) 8 units TIDWMEALS SQ Last administered on at 16:50; Start 03/03/18 at 17:00 Zolpidem Tartrate (Ambien) 5 mg PRN QHS PRN PO INSOMNIA; Start 03/03/18 at 17: 15 Ondansetron HCl (Zofran) 4 mg PRN Q6HRS PRN IV NAUSEA/VOMITING; Start 03/03/18 at 17:15 Active Scripts Active Glipizide Er (Glipizide) 5 Mg Tab.er.24 10 Mg PO BIDWMEALS 30 Days Proair Hfa Inhaler (Albuterol Sulfate) 8.5 Gm Hfa.aer.ad 1 Puff INH PRN Q6HRS PRN Atenolol 25 Mg Tablet 25 Mg PO DAILY Reported Hydrochlorothiazide Tablet (Hydrochlorothiazide) 25 Mg Tablet 1 Tab PO DAILY Allergies Allergies: Coded Allergies: I S O L A T I O N *CONTACT* (Verified Allergy, Unknown, 11/07/17) mrsa amoxicillin (Verified Adverse Reaction, Mild, Rash, 04/12/16) on legs and trunk clavulanic acid (Verified Adverse Reaction, Mild, Rash, 04/12/16) on legs and trunk ROS Review of System confused General: YES: Chills, Fatigue; No: Night Sweats, Malaise, Appetite, Other PSYCHOLOGICAL ROS: YES: Irritablity, Memory difficulties Eyes: No Blurry vision, No Decreased vision, No Double vision, No Dry eyes, No Excessive tearing, No Eye Pain, No Itchy Eyes, No Loss of vision, No Photophobia , No Scotomata, No Uses contacts, No Uses glasses, No Other HEENT: No: Heacaches, Visual Changes, Hearing change, Nasal congestion, Nasal discharge, Oral lesions, Sinus pain, Sore Throat, Epistaxis, Sneezing, Snoring, Tinnitus, Vertigo, Vocal changes, Other Gastrointestinal: Yes Nausea, Yes Vomiting Genitourinary: No Dysuria, No Frequency, No Incontinence, No Hematuria, No Retention, No Discharge, No Urgency, No Pain, No Flank Pain, No Other, No , No , No , No , No , No , No Musculoskeletal: Yes Joint Pain, Yes Joint Stiffness Neurological: Yes Confusion, Yes Headaches Skin: Yes Dry Skin Physical Exam General: Cooperative, mild distress, Other (lethargic, ) HEENT: PERRLA, Other (dry) Lungs: Clear to auscultation Heart: S1S2 Abdomen: Normal bowel sounds, Soft Rectal Exam: not examined Extremities: Normal pulses Neuro: Normal speech, Normal tone, Sensation intact Psych/Mental Status: Mood NL Vitals Vitals Vital Signs Date Time Temp Pulse Resp B/P (MAP) Pulse Ox O2 Delivery O2 Flow Rate FiO2 03/03/18 19:00 63 18 120/70 (87) 97 Room Air 03/03/18 16:03 98.3 98.3 Labs Labs Laboratory Tests Test 03/03/18 11:14 03/03/18 12:20 03/03/18 12:43 03/03/18 16:22 White Blood Count 21.8 x10^3/uL (4.0-11.0) Red Blood Count 3.79 x10^6/uL (3.50-5.40) Hemoglobin 10.9 g/dL (12.0-15.5) Hematocrit 34.2 % (36.0-47.0) Mean Corpuscular Volume 90 fL (79-100) Mean Corpuscular Hemoglobin 29 pg (25-35) Mean Corpuscular Hemoglobin Concent 32 g/dL (31-37) Red Cell Distribution Width 15.3 % (11.5-14.5) Platelet Count 402 x10^3/uL (140-400) Neutrophils (%) (Auto) 95 % (31-73) Lymphocytes (%) (Auto) 2 % (24-48) Monocytes (%) (Auto) 3 % (0-9) Eosinophils (%) (Auto) 0 % (0-3) Basophils (%) (Auto) 0 % (0-3) Neutrophils # (Auto) 20.7 x10^3uL (1.8-7.7) Lymphocytes # (Auto) 0.4 x10^3/uL (1.0-4.8) Monocytes # (Auto) 0.6 x10^3/uL (0.0-1.1) Eosinophils # (Auto) 0.0 x10^3/uL (0.0-0.7) Basophils # (Auto) 0.1 x10^3/uL (0.0-0.2) Segmented Neutrophils % 93 % (35-66) Band Neutrophils % 3 % (0-9) Lymphocytes % 4 % (24-48) Platelet Estimate Adequate (ADEQUATE) Sodium Level 124 mmol/L (136-145) Potassium Level 5.5 mmol/L (3.5-5.1) Chloride Level 93 mmol/L (98-107) Carbon Dioxide Level 21 mmol/L (21-32) Anion Gap 10 (6-14) Blood Urea Nitrogen 64 mg/dL (7-20) Creatinine 1.7 mg/dL (0.6-1.0) Estimated GFR (Cockcroft-Gault) 28.9 BUN/Creatinine Ratio 38 (6-20) Glucose Level 477 mg/dL (70-99) Calcium Level 9.5 mg/dL (8.5-10.1) Total Bilirubin 0.6 mg/dL (0.2-1.0) Aspartate Amino Transf (AST/SGOT) 109 U/L (15-37) Alanine Aminotransferase (ALT/SGPT) 154 U/L (14-59) Alkaline Phosphatase 163 U/L (46-116) Creatine Kinase 180 U/L (26-192) Troponin I Quantitative 1.025 ng/mL (0.000-0.055) NM-Xfb-V-Type Natriuretic Peptide > 22634 pg/mL (0-449) Total Protein 7.6 g/dL (6.4-8.2) Albumin 2.4 g/dL (3.4-5.0) Albumin/Globulin Ratio 0.5 (1.0-1.7) Lactic Acid Level 2.1 mmol/L (0.4-2.0) Urine Collection Type U cath Urine Color Yellow Urine Clarity Clear Urine pH 5.0 Urine Specific [place] 1.025 Urine Protein 30 mg/dL (NEG-TRACE) Urine Glucose (UA) >=1000 mg/dL (NEG) Urine Ketones (Stick) Trace mg/dL (NEG) Urine Blood Negative (NEG) Urine Nitrite Negative (NEG) Urine Bilirubin Small (NEG) Urine Urobilinogen Dipstick 1.0 mg/dL (0.2 mg/dL) Urine Leukocyte Esterase Negative (NEG) Urine RBC 0 /HPF (0-2) Urine WBC 0 /HPF (0-4) Urine Bacteria 0 /HPF (0-FEW) Glucose (Fingerstick) 316 mg/dL (70-99) Test 03/03/18 17:05 Troponin I Quantitative 0.713 ng/mL (0.000-0.055) Laboratory Tests Test 03/03/18 11:14 03/03/18 12:20 03/03/18 12:43 03/03/18 16:22 White Blood Count 21.8 x10^3/uL (4.0-11.0) Red Blood Count 3.79 x10^6/uL (3.50-5.40) Hemoglobin 10.9 g/dL (12.0-15.5) Hematocrit 34.2 % (36.0-47.0) Mean Corpuscular Volume 90 fL (79-100) Mean Corpuscular Hemoglobin 29 pg (25-35) Mean Corpuscular Hemoglobin Concent 32 g/dL (31-37) Red Cell Distribution Width 15.3 % (11.5-14.5) Platelet Count 402 x10^3/uL (140-400) Neutrophils (%) (Auto) 95 % (31-73) Lymphocytes (%) (Auto) 2 % (24-48) Monocytes (%) (Auto) 3 % (0-9) Eosinophils (%) (Auto) 0 % (0-3) Basophils (%) (Auto) 0 % (0-3) Neutrophils # (Auto) 20.7 x10^3uL (1.8-7.7) Lymphocytes # (Auto) 0.4 x10^3/uL (1.0-4.8) Monocytes # (Auto) 0.6 x10^3/uL (0.0-1.1) Eosinophils # (Auto) 0.0 x10^3/uL (0.0-0.7) Basophils # (Auto) 0.1 x10^3/uL (0.0-0.2) Segmented Neutrophils % 93 % (35-66) Band Neutrophils % 3 % (0-9) Lymphocytes % 4 % (24-48) Platelet Estimate Adequate (ADEQUATE) Sodium Level 124 mmol/L (136-145) Potassium Level 5.5 mmol/L (3.5-5.1) Chloride Level 93 mmol/L (98-107) Carbon Dioxide Level 21 mmol/L (21-32) Anion Gap 10 (6-14) Blood Urea Nitrogen 64 mg/dL (7-20) Creatinine 1.7 mg/dL (0.6-1.0) Estimated GFR (Cockcroft-Gault) 28.9 BUN/Creatinine Ratio 38 (6-20) Glucose Level 477 mg/dL (70-99) Calcium Level 9.5 mg/dL (8.5-10.1) Total Bilirubin 0.6 mg/dL (0.2-1.0) Aspartate Amino Transf (AST/SGOT) 109 U/L (15-37) Alanine Aminotransferase (ALT/SGPT) 154 U/L (14-59) Alkaline Phosphatase 163 U/L (46-116) Creatine Kinase 180 U/L (26-192) Troponin I Quantitative 1.025 ng/mL (0.000-0.055) TB-Lhh-A-Type Natriuretic Peptide > 31242 pg/mL (0-449) Total Protein 7.6 g/dL (6.4-8.2) Albumin 2.4 g/dL (3.4-5.0) Albumin/Globulin Ratio 0.5 (1.0-1.7) Lactic Acid Level 2.1 mmol/L (0.4-2.0) Urine Collection Type U cath Urine Color Yellow Urine Clarity Clear Urine pH 5.0 Urine Specific [place] 1.025 Urine Protein 30 mg/dL (NEG-TRACE) Urine Glucose (UA) >=1000 mg/dL (NEG) Urine Ketones (Stick) Trace mg/dL (NEG) Urine Blood Negative (NEG) Urine Nitrite Negative (NEG) Urine Bilirubin Small (NEG) Urine Urobilinogen Dipstick 1.0 mg/dL (0.2 mg/dL) Urine Leukocyte Esterase Negative (NEG) Urine RBC 0 /HPF (0-2) Urine WBC 0 /HPF (0-4) Urine Bacteria 0 /HPF (0-FEW) Glucose (Fingerstick) 316 mg/dL (70-99) Test 03/03/18 17:05 Troponin I Quantitative 0.713 ng/mL (0.000-0.055) VTE Prophylaxis Ordered VTE Prophylaxis Devices: Yes VTE Pharmacological Prophylaxi: Yes Assessment/Plan Assessment/Plan acute vasomotor nephropathy hyperosmolar not ketotic, hyperglycemia nausea and vomiting and abd pain severe malnutrition hyperkalemia, will correct with fluid acute on chronic diastolic CHF, cautino with fluid acute on chronic encephalopathy, metabolic on cognitive declnie some drainage from pacemaker site, will have CV and woundcare eval admit TAMARA LI MD Mar 03, 2018 20:43
[2018-03-03] MEDS ORDERED: APIXABAN 2.5 MG TABLET. PO SCH (21:00)
[2018-03-03] MEDS: INSULIN GLARGINE 300 UNITS/3 ML INSULN.PEN. SQ SCH (21:03)
--- NOTE | 2018-03-03 22:30 | NUR ---
UFH low at 0.15 at this time, bolus given via IV per PRN order and gtt increased to 15 units/kg/hr per protocol. next UFH scheduled for 0430 on 03/01/18 also per protocol. will pass on in report. will continue to closely monitor.
[2018-03-04] VITALS: BP 117/62
--- NOTE | 2018-03-04 01:50 | NUR ---
report given to agency nurse FAB Santiago. pt stable upon report to nurse, she's sleeping in bed at this time.
[2018-03-04 04:00] VITALS: BP 134/76
[2018-03-04 05:30] LABS: HEMATOCRIT 32.2 % (36.0-47.0); HEMOGLOBIN 10.3 g/dL (12.0-15.5); RED BLOOD COUNT 3.6 x10^6/uL (3.50-5.40); RED CELL DISTRIBUTION WIDTH 14.9 % (11.5-14.5); WHITE BLOOD COUNT 18.1 x10^3/uL (4.0-11.0)
[2018-03-04 05:47] LABS: CREATININE 1.5 mg/dL (0.6-1.0); GFR 33.4; MAGNESIUM 2.1 mg/dL (1.8-2.4); POTASSIUM 4.5 mmol/L (3.5-5.1)
--- NOTE | 2018-03-04 07:28 | PDOC ---
PROGRESS NOTES Chief Complaint Chief Complaint Acute vasomotor nephropathy Hyperosmolar not ketotic, hyperglycemia Dysphagia Nausea and vomiting and abd pain Severe malnutrition Hyperkalemia, will correct with fluid Acute on chronic diastolic CHF, cautino with fluid Acute on chronic encephalopathy, metabolic on cognitive declnie Pain and drainage - pacemaker site History of Present Illness History of Present Illness Ms Diaz is an 82-year-old female who presents with complaint of just not feeling well. She complains of pain, but I think it was more nausea and lethargy. In the ER, she reported feeling sick for the last couple of weeks with intermittent nausea and vomiting. She has little PO intake, normal stool, but not much. No chest pain, some dyspnea, marked weakness, and general malaise. She also indicates that she has been having drainage from the site of her pacemaker. Overnight was having more difficulty swallowing and left neck pain. GPC positive in clusters. She still has abdominal pain Assessment/Plan Acute vasomotor nephropathy - nephro consulted, seems in acute CHF, though Hyperosmolar not ketotic, hyperglycemia - sliding scale Dysphagia - will have CARE CONSULTANT evaluation Nausea and vomiting and abd pain - likely from sepsis Severe sepsis - with bacteremia, fluids, antibiotics, ID consulted. Some drainage from pacemaker site, will have CV and woundcare evaluation, may need her pacer assess with bacteremia and pain at pacer site with Severe malnutrition - will have nutrition to see Hyperkalemia, will correct with fluid. Nephrology consulted Acute on chronic diastolic CHF, caution with fluid for sepsis, will likely need lasix after she is less septic Acute on chronic encephalopathy, metabolic on cognitive decline - a little more clear today Vitals Vitals Vital Signs Date Time Temp Pulse Resp B/P (MAP) Pulse Ox O2 Delivery O2 Flow Rate FiO2 03/04/18 04:00 98.4 69 17 134/76 (95) 97 Room Air 98.4 Physical Exam General: Cooperative, mild distress, Other (lethargic, ) Lungs: Crackles, Other Abdomen: Normal bowel sounds, Soft Extremities: Normal pulses Labs LABS Laboratory Tests Test 03/03/18 11:14 03/03/18 12:20 03/03/18 12:43 03/03/18 16:22 White Blood Count 21.8 x10^3/uL (4.0-11.0) Red Blood Count 3.79 x10^6/uL (3.50-5.40) Hemoglobin 10.9 g/dL (12.0-15.5) Hematocrit 34.2 % (36.0-47.0) Mean Corpuscular Volume 90 fL (79-100) Mean Corpuscular Hemoglobin 29 pg (25-35) Mean Corpuscular Hemoglobin Concent 32 g/dL (31-37) Red Cell Distribution Width 15.3 % (11.5-14.5) Platelet Count 402 x10^3/uL (140-400) Neutrophils (%) (Auto) 95 % (31-73) Lymphocytes (%) (Auto) 2 % (24-48) Monocytes (%) (Auto) 3 % (0-9) Eosinophils (%) (Auto) 0 % (0-3) Basophils (%) (Auto) 0 % (0-3) Neutrophils # (Auto) 20.7 x10^3uL (1.8-7.7) Lymphocytes # (Auto) 0.4 x10^3/uL (1.0-4.8) Monocytes # (Auto) 0.6 x10^3/uL (0.0-1.1) Eosinophils # (Auto) 0.0 x10^3/uL (0.0-0.7) Basophils # (Auto) 0.1 x10^3/uL (0.0-0.2) Segmented Neutrophils % 93 % (35-66) Band Neutrophils % 3 % (0-9) Lymphocytes % 4 % (24-48) Platelet Estimate Adequate (ADEQUATE) Sodium Level 124 mmol/L (136-145) Potassium Level 5.5 mmol/L (3.5-5.1) Chloride Level 93 mmol/L (98-107) Carbon Dioxide Level 21 mmol/L (21-32) Anion Gap 10 (6-14) Blood Urea Nitrogen 64 mg/dL (7-20) Creatinine 1.7 mg/dL (0.6-1.0) Estimated GFR (Cockcroft-Gault) 28.9 BUN/Creatinine Ratio 38 (6-20) Glucose Level 477 mg/dL (70-99) Calcium Level 9.5 mg/dL (8.5-10.1) Total Bilirubin 0.6 mg/dL (0.2-1.0) Aspartate Amino Transf (AST/SGOT) 109 U/L (15-37) Alanine Aminotransferase (ALT/SGPT) 154 U/L (14-59) Alkaline Phosphatase 163 U/L (46-116) Creatine Kinase 180 U/L (26-192) Troponin I Quantitative 1.025 ng/mL (0.000-0.055) VL-Ofu-R-Type Natriuretic Peptide > 68211 pg/mL (0-449) Total Protein 7.6 g/dL (6.4-8.2) Albumin 2.4 g/dL (3.4-5.0) Albumin/Globulin Ratio 0.5 (1.0-1.7) Lactic Acid Level 2.1 mmol/L (0.4-2.0) Urine Collection Type U cath Urine Color Yellow Urine Clarity Clear Urine pH 5.0 Urine Specific [place] 1.025 Urine Protein 30 mg/dL (NEG-TRACE) Urine Glucose (UA) >=1000 mg/dL (NEG) Urine Ketones (Stick) Trace mg/dL (NEG) Urine Blood Negative (NEG) Urine Nitrite Negative (NEG) Urine Bilirubin Small (NEG) Urine Urobilinogen Dipstick 1.0 mg/dL (0.2 mg/dL) Urine Leukocyte Esterase Negative (NEG) Urine RBC 0 /HPF (0-2) Urine WBC 0 /HPF (0-4) Urine Bacteria 0 /HPF (0-FEW) Glucose (Fingerstick) 316 mg/dL (70-99) Test 03/03/18 17:05 03/03/18 20:50 03/03/18 21:00 03/04/18 04:30 Troponin I Quantitative 0.713 ng/mL (0.000-0.055) 0.674 ng/mL (0.000-0.055) Heparin Anti-Xa Act, Unfractionated 0.15 IU/mL (0.30-0.70) 0.20 IU/mL (0.30-0.70) Glucose (Fingerstick) 223 mg/dL (70-99) White Blood Count 18.1 x10^3/uL (4.0-11.0) Red Blood Count 3.60 x10^6/uL (3.50-5.40) Hemoglobin 10.3 g/dL (12.0-15.5) Hematocrit 32.2 % (36.0-47.0) Mean Corpuscular Volume 89 fL (79-100) Mean Corpuscular Hemoglobin 29 pg (25-35) Mean Corpuscular Hemoglobin Concent 32 g/dL (31-37) Red Cell Distribution Width 14.9 % (11.5-14.5) Platelet Count 364 x10^3/uL (140-400) Sodium Level 129 mmol/L (136-145) Potassium Level 4.5 mmol/L (3.5-5.1) Chloride Level 95 mmol/L (98-107) Carbon Dioxide Level 25 mmol/L (21-32) Anion Gap 9 (6-14) Blood Urea Nitrogen 63 mg/dL (7-20) Creatinine 1.5 mg/dL (0.6-1.0) Estimated GFR (Cockcroft-Gault) 33.4 Glucose Level 243 mg/dL (70-99) Calcium Level 9.0 mg/dL (8.5-10.1) Magnesium Level 2.1 mg/dL (1.8-2.4) Assessment and Plan Assessmemt and Plan Problems Medical Problems: (1) Acute kidney injury Status: Acute (2) Congestive heart failure Status: Acute (3) Hyponatremia Status: Acute (4) NSTEMI (non-ST elevated myocardial infarction) Status: Acute (5) Type 2 diabetes mellitus with hyperglycemia Status: Acute Comment Review of Relevant I have reviewed the following items sandeep (where applicable) has been applied. Labs Laboratory Tests Test 03/03/18 11:14 03/03/18 12:20 03/03/18 12:43 03/03/18 16:22 White Blood Count 21.8 x10^3/uL (4.0-11.0) Red Blood Count 3.79 x10^6/uL (3.50-5.40) Hemoglobin 10.9 g/dL (12.0-15.5) Hematocrit 34.2 % (36.0-47.0) Mean Corpuscular Volume 90 fL (79-100) Mean Corpuscular Hemoglobin 29 pg (25-35) Mean Corpuscular Hemoglobin Concent 32 g/dL (31-37) Red Cell Distribution Width 15.3 % (11.5-14.5) Platelet Count 402 x10^3/uL (140-400) Neutrophils (%) (Auto) 95 % (31-73) Lymphocytes (%) (Auto) 2 % (24-48) Monocytes (%) (Auto) 3 % (0-9) Eosinophils (%) (Auto) 0 % (0-3) Basophils (%) (Auto) 0 % (0-3) Neutrophils # (Auto) 20.7 x10^3uL (1.8-7.7) Lymphocytes # (Auto) 0.4 x10^3/uL (1.0-4.8) Monocytes # (Auto) 0.6 x10^3/uL (0.0-1.1) Eosinophils # (Auto) 0.0 x10^3/uL (0.0-0.7) Basophils # (Auto) 0.1 x10^3/uL (0.0-0.2) Segmented Neutrophils % 93 % (35-66) Band Neutrophils % 3 % (0-9) Lymphocytes % 4 % (24-48) Platelet Estimate Adequate (ADEQUATE) Sodium Level 124 mmol/L (136-145) Potassium Level 5.5 mmol/L (3.5-5.1) Chloride Level 93 mmol/L (98-107) Carbon Dioxide Level 21 mmol/L (21-32) Anion Gap 10 (6-14) Blood Urea Nitrogen 64 mg/dL (7-20) Creatinine 1.7 mg/dL (0.6-1.0) Estimated GFR (Cockcroft-Gault) 28.9 BUN/Creatinine Ratio 38 (6-20) Glucose Level 477 mg/dL (70-99) Calcium Level 9.5 mg/dL (8.5-10.1) Total Bilirubin 0.6 mg/dL (0.2-1.0) Aspartate Amino Transf (AST/SGOT) 109 U/L (15-37) Alanine Aminotransferase (ALT/SGPT) 154 U/L (14-59) Alkaline Phosphatase 163 U/L (46-116) Creatine Kinase 180 U/L (26-192) Troponin I Quantitative 1.025 ng/mL (0.000-0.055) CY-Ifb-G-Type Natriuretic Peptide > 11378 pg/mL (0-449) Total Protein 7.6 g/dL (6.4-8.2) Albumin 2.4 g/dL (3.4-5.0) Albumin/Globulin Ratio 0.5 (1.0-1.7) Lactic Acid Level 2.1 mmol/L (0.4-2.0) Urine Collection Type U cath Urine Color Yellow Urine Clarity Clear Urine pH 5.0 Urine Specific [place] 1.025 Urine Protein 30 mg/dL (NEG-TRACE) Urine Glucose (UA) >=1000 mg/dL (NEG) Urine Ketones (Stick) Trace mg/dL (NEG) Urine Blood Negative (NEG) Urine Nitrite Negative (NEG) Urine Bilirubin Small (NEG) Urine Urobilinogen Dipstick 1.0 mg/dL (0.2 mg/dL) Urine Leukocyte Esterase Negative (NEG) Urine RBC 0 /HPF (0-2) Urine WBC 0 /HPF (0-4) Urine Bacteria 0 /HPF (0-FEW) Glucose (Fingerstick) 316 mg/dL (70-99) Test 03/03/18 17:05 03/03/18 20:50 03/03/18 21:00 03/04/18 04:30 Troponin I Quantitative 0.713 ng/mL (0.000-0.055) 0.674 ng/mL (0.000-0.055) Heparin Anti-Xa Act, Unfractionated 0.15 IU/mL (0.30-0.70) 0.20 IU/mL (0.30-0.70) Glucose (Fingerstick) 223 mg/dL (70-99) White Blood Count 18.1 x10^3/uL (4.0-11.0) Red Blood Count 3.60 x10^6/uL (3.50-5.40) Hemoglobin 10.3 g/dL (12.0-15.5) Hematocrit 32.2 % (36.0-47.0) Mean Corpuscular Volume 89 fL (79-100) Mean Corpuscular Hemoglobin 29 pg (25-35) Mean Corpuscular Hemoglobin Concent 32 g/dL (31-37) Red Cell Distribution Width 14.9 % (11.5-14.5) Platelet Count 364 x10^3/uL (140-400) Sodium Level 129 mmol/L (136-145) Potassium Level 4.5 mmol/L (3.5-5.1) Chloride Level 95 mmol/L (98-107) Carbon Dioxide Level 25 mmol/L (21-32) Anion Gap 9 (6-14) Blood Urea Nitrogen 63 mg/dL (7-20) Creatinine 1.5 mg/dL (0.6-1.0) Estimated GFR (Cockcroft-Gault) 33.4 Glucose Level 243 mg/dL (70-99) Calcium Level 9.0 mg/dL (8.5-10.1) Magnesium Level 2.1 mg/dL (1.8-2.4) Laboratory Tests Test 03/03/18 11:14 03/03/18 12:20 03/03/18 12:43 03/03/18 16:22 White Blood Count 21.8 x10^3/uL (4.0-11.0) Red Blood Count 3.79 x10^6/uL (3.50-5.40) Hemoglobin 10.9 g/dL (12.0-15.5) Hematocrit 34.2 % (36.0-47.0) Mean Corpuscular Volume 90 fL (79-100) Mean Corpuscular Hemoglobin 29 pg (25-35) Mean Corpuscular Hemoglobin Concent 32 g/dL (31-37) Red Cell Distribution Width 15.3 % (11.5-14.5) Platelet Count 402 x10^3/uL (140-400) Neutrophils (%) (Auto) 95 % (31-73) Lymphocytes (%) (Auto) 2 % (24-48) Monocytes (%) (Auto) 3 % (0-9) Eosinophils (%) (Auto) 0 % (0-3) Basophils (%) (Auto) 0 % (0-3) Neutrophils # (Auto) 20.7 x10^3uL (1.8-7.7) Lymphocytes # (Auto) 0.4 x10^3/uL (1.0-4.8) Monocytes # (Auto) 0.6 x10^3/uL (0.0-1.1) Eosinophils # (Auto) 0.0 x10^3/uL (0.0-0.7) Basophils # (Auto) 0.1 x10^3/uL (0.0-0.2) Segmented Neutrophils % 93 % (35-66) Band Neutrophils % 3 % (0-9) Lymphocytes % 4 % (24-48) Platelet Estimate Adequate (ADEQUATE) Sodium Level 124 mmol/L (136-145) Potassium Level 5.5 mmol/L (3.5-5.1) Chloride Level 93 mmol/L (98-107) Carbon Dioxide Level 21 mmol/L (21-32) Anion Gap 10 (6-14) Blood Urea Nitrogen 64 mg/dL (7-20) Creatinine 1.7 mg/dL (0.6-1.0) Estimated GFR (Cockcroft-Gault) 28.9 BUN/Creatinine Ratio 38 (6-20) Glucose Level 477 mg/dL (70-99) Calcium Level 9.5 mg/dL (8.5-10.1) Total Bilirubin 0.6 mg/dL (0.2-1.0) Aspartate Amino Transf (AST/SGOT) 109 U/L (15-37) Alanine Aminotransferase (ALT/SGPT) 154 U/L (14-59) Alkaline Phosphatase 163 U/L (46-116) Creatine Kinase 180 U/L (26-192) Troponin I Quantitative 1.025 ng/mL (0.000-0.055) SY-Hzx-N-Type Natriuretic Peptide > 52330 pg/mL (0-449) Total Protein 7.6 g/dL (6.4-8.2) Albumin 2.4 g/dL (3.4-5.0) Albumin/Globulin Ratio 0.5 (1.0-1.7) Lactic Acid Level 2.1 mmol/L (0.4-2.0) Urine Collection Type U cath Urine Color Yellow Urine Clarity Clear Urine pH 5.0 Urine Specific [place] 1.025 Urine Protein 30 mg/dL (NEG-TRACE) Urine Glucose (UA) >=1000 mg/dL (NEG) Urine Ketones (Stick) Trace mg/dL (NEG) Urine Blood Negative (NEG) Urine Nitrite Negative (NEG) Urine Bilirubin Small (NEG) Urine Urobilinogen Dipstick 1.0 mg/dL (0.2 mg/dL) Urine Leukocyte Esterase Negative (NEG) Urine RBC 0 /HPF (0-2) Urine WBC 0 /HPF (0-4) Urine Bacteria 0 /HPF (0-FEW) Glucose (Fingerstick) 316 mg/dL (70-99) Test 03/03/18 17:05 03/03/18 20:50 03/03/18 21:00 03/04/18 04:30 Troponin I Quantitative 0.713 ng/mL (0.000-0.055) 0.674 ng/mL (0.000-0.055) Heparin Anti-Xa Act, Unfractionated 0.15 IU/mL (0.30-0.70) 0.20 IU/mL (0.30-0.70) Glucose (Fingerstick) 223 mg/dL (70-99) White Blood Count 18.1 x10^3/uL (4.0-11.0) Red Blood Count 3.60 x10^6/uL (3.50-5.40) Hemoglobin 10.3 g/dL (12.0-15.5) Hematocrit 32.2 % (36.0-47.0) Mean Corpuscular Volume 89 fL (79-100) Mean Corpuscular Hemoglobin 29 pg (25-35) Mean Corpuscular Hemoglobin Concent 32 g/dL (31-37) Red Cell Distribution Width 14.9 % (11.5-14.5) Platelet Count 364 x10^3/uL (140-400) Sodium Level 129 mmol/L (136-145) Potassium Level 4.5 mmol/L (3.5-5.1) Chloride Level 95 mmol/L (98-107) Carbon Dioxide Level 25 mmol/L (21-32) Anion Gap 9 (6-14) Blood Urea Nitrogen 63 mg/dL (7-20) Creatinine 1.5 mg/dL (0.6-1.0) Estimated GFR (Cockcroft-Gault) 33.4 Glucose Level 243 mg/dL (70-99) Calcium Level 9.0 mg/dL (8.5-10.1) Magnesium Level 2.1 mg/dL (1.8-2.4) Medications Current Medications Sodium Chloride 1,000 ml @ 1,000 mls/hr Q1H IV Last administered on 03/03/18at 11:15; Start 03/03/18 at 10:52; Stop 03/03/18 at 11:51; Status DC Ondansetron HCl (Zofran) 4 mg STK-MED ONCE .ROUTE ; Start 03/03/18 at 11:53; Stop 03/03/18 at 11:55; Status DC Ondansetron HCl (Zofran) 4 mg 1X ONCE IM ; Start 03/03/18 at 12:15; Stop at 12:16; Status DC Ondansetron HCl (Zofran) 4 mg 1X ONCE IV Last administered on 03/03/18at 12:49 ; Start 03/03/18 at 13:00; Stop 03/03/18 at 13:01; Status DC Insulin Human Regular (HumuLIN R VIAL) 10 unit 1X ONCE IV Last administered on 03/03/18at 13:59; Start 03/03/18 at 13:45; Stop 03/03/18 at 13:46; Status DC Furosemide (Lasix) 40 mg 1X ONCE IVP Last administered on 03/03/18at 13:57; Start 03/03/18 at 13:45; Stop 03/03/18 at 13:46; Status DC Vancomycin HCl 250 ml @ 250 mls/hr 1X ONCE IV Last administered on 03/03/18at 14:57; Start 03/03/18 at 14:00; Stop 03/03/18 at 14:59; Status DC Piperacillin Sod/ Tazobactam Sod 3.375 gm/Sodium Chloride 50 ml @ 100 mls/hr 1X ONCE IV Last administered on 03/03/18at 14:03; Start 03/03/18 at 14:00; Stop 03/03/18 at 14:29; Status DC Ondansetron HCl (Zofran) 4 mg PRN Q8HRS PRN IV NAUSEA/VOMITING; Start 03/03/18 at 14:15; Stop 03/03/18 at 17:14; Status DC Heparin Sodium (Porcine) (Heparin Sodium) 4,000 unit 1X ONCE IV Last administered on 03/03/18at 14:58; Start 03/03/18 at 14:15; Stop 03/03/18 at 14:16 ; Status DC Heparin Sodium/ Dextrose 500 ml @ 17.28 mls/ hr CONT PRN IV SEE I/O RECORD Last administered on 03/03/18at 15:00; Start 03/03/18 at 14:15 Heparin Sodium (Porcine) (Heparin Sodium) 1,800 unit PRN Q6HRS PRN IV FOR UFH LEVEL LESS THAN 0.2 Last administered on 03/03/18at 22:30; Start 03/03/18 at 14: 15 Insulin Human Lispro (HumaLOG) 0-7 UNITS TIDWMEALS SQ Last administered on 03/03at 16:49; Start 03/03/18 at 17:00 Dextrose (Dextrose 50%-Water Syringe) 12.5 gm PRN Q15MIN PRN IV SEE COMMENTS; Start 03/03/18 at 15:45 Albuterol Sulfate (Ventolin Neb Soln) 2.5 mg PRN Q6HRS PRN INH SHORTNESS OF BREATH; Start 03/03/18 at 15:45 Apixaban (Eliquis) 2.5 mg BID PO ; Start 03/03/18 at 21:00; Status UNV Acetaminophen/ Hydrocodone Bitart (Lortab 5/325) 1 tab PRN Q4HRS PRN PO moderate pain; Start 03/03/18 at 15:45 Amlodipine Besylate (Norvasc) 2.5 mg DAILY PO ; Start 03/03/18 at 16:30; Stop at 17:16; Status DC Atenolol (Tenormin) 25 mg DAILY PO Last administered on 03/03/18at 17:31; Start 03/03/18 at 16:30 Insulin Glargine (Lantus) 12 units QHS SQ Last administered on 03/03/18at 21:03 ; Start 03/03/18 at 21:00 Insulin Human Lispro (HumaLOG) 8 units TIDWMEALS SQ Last administered on at 16:50; Start 03/03/18 at 17:00 Zolpidem Tartrate (Ambien) 5 mg PRN QHS PRN PO INSOMNIA Last administered on at 21:01; Start 03/03/18 at 17:15 Ondansetron HCl (Zofran) 4 mg PRN Q6HRS PRN IV NAUSEA/VOMITING; Start 03/03/18 at 17:15 Active Scripts Active Glipizide Er (Glipizide) 5 Mg Tab.er.24 10 Mg PO BIDWMEALS 30 Days Proair Hfa Inhaler (Albuterol Sulfate) 8.5 Gm Hfa.aer.ad 1 Puff INH PRN Q6HRS PRN Atenolol 25 Mg Tablet 25 Mg PO DAILY Reported Hydrochlorothiazide Tablet (Hydrochlorothiazide) 25 Mg Tablet 1 Tab PO DAILY Vitals/I & O Vital Sign - Last 24 Hours 03/03/18 03/03/18 03/03/18 03/03/18 10:40 11:00 11:30 12:00 Temp 97.4 97.4 Pulse 70 68 70 74 Resp 16 20 16 B/P (MAP) 140/74 (96) 140/74 (96) 148/70 (96) 135/96 (109) Pulse Ox 96 96 94 97 O2 Delivery Room Air Room Air Room Air Room Air 03/03/18 03/03/18 03/03/18 03/03/18 12:30 13:00 13:30 14:00 Pulse 70 70 72 72 Resp 16 B/P (MAP) 140/71 (94) 148/67 (94) 154/72 (99) 158/72 (100) Pulse Ox 96 96 92 96 O2 Delivery Room Air Room Air Room Air Room Air 03/03/18 03/03/18 03/03/18 03/03/18 14:30 15:00 15:30 16:00 Pulse 79 68 68 69 Resp 12 12 12 B/P (MAP) 140/71 (94) 131/63 (85) 131/63 (85) 137/64 (88) Pulse Ox 96 O2 Delivery Room Air Room Air Room Air 03/03/18 03/03/18 03/03/18 03/03/18 16:03 16:30 16:35 17:31 Temp 98.3 98.3 Pulse 67 67 Resp 20 B/P (MAP) 125/67 (86) 125/67 Pulse Ox 98 96 O2 Delivery Room Air Room Air Room Air 03/03/18 03/04/18 03/04/18 19:00 00:00 04:00 Temp 98.7 98.2 98.4 98.7 98.2 98.4 Pulse 63 69 69 Resp 18 16 17 B/P (MAP) 120/70 (87) 117/62 (80) 134/76 (95) Pulse Ox 97 95 97 O2 Delivery Room Air Room Air Room Air Intake and Output 03/03/18 03/03/18 03/04/18 15:01 23:01 07:01 Intake Total 1600 ml 120 ml 437.4 ml Output Total 200 ml Balance 1600 ml -80 ml 437.4 ml KRUNAL PARDO MD Mar 04, 2018 07:28
[2018-03-04 08:00] VITALS: BP 122/64
[2018-03-04] MEDS: INSULIN LISPRO 300 UNITS/3 ML INSULN.PEN. SQ SCH ×6 (08:00→17:00)
--- NOTE | 2018-03-04 08:37 | PDOC2 ---
[facility] [employer] [employer] 03/04/18 0837: CARDIAC CONSULT DATE OF CONSULT Date of Consult DATE: 03/04/18 TIME: 08:24 REASON FOR CONSULT Reason for Consult: NSTEMI CHF REFERRING PHYSICIAN Referring Physician: Dr. Cabrera SOURCE Source: Chart review HISTORY OF PRESENT ILLNESS HISTORY OF PRESENT ILLNESS This is an 82 yo female, with a history of CHF, HTN, ad SSS s/p pacemaker insertion with recent generator change (10/10/17), who presented with complaints of shortness of breath, intermittent nausea and vomiting for the last couple of weeks, neck pain, and drainage from her pacemaker insertion site. Patient has noted yellowish drainage from her PPM incisional site for the last three weeks. States that her left neck began hurting 2 weeks ago. Is too painful to eat. Slightly nauseated as well. Has been mainly taking in liquids due to pain. Denies any fevers. Foul odor is present from PPM site. Denies any chest pain, shortness of breath, dizziness, diaphoresis, orthopnea, or PND. PAST MEDICAL HISTORY Cardiovascular: CHF, HTN Pulmonary: No pertinent hx CENTRAL NERVOUS SYSTEM: Dementia, Periperal neuropathy GI: No pertinent hx Heme/Onc: No pertinent hx Psych: Anxiety, Depression Musculoskeletal: Osteoarthritis Infectious disease: No pertinent hx ENT: No pertinent hx Renal/: No pertinent hx Endocrine: Diabetes Dermatology: No pertinent hx PAST SURGICAL HISTORY Past Surgical History: Pacemaker ([employer] Giorgio), Cholecystectomy, Cataract Removal , Tubal Ligation, Tonsillectomy, Hysterectomy FAMILY HISTORY Family History: Coronary Artery Disease SOCIAL HISTORY Smoke: No ALCOHOL: none Drugs: None Lives: Alone CURRENT MEDICATIONS CURRENT MEDICATIONS Current Medications Medications (Trade) Dose Ordered Sig/Leonel Route PRN Reason Start Time Stop Time Status Last Admin Dose Admin Sodium Chloride 1,000 ml @ 1,000 mls/hr Q1H IV 03/03/18 10:52 03/03/18 11:51 DC 03/03/18 11:15 Ondansetron HCl (Zofran) 4 mg 1X ONCE IV 03/03/18 13:00 03/03/18 13:01 DC 03/03/18 12:49 Insulin Human Regular (HumuLIN R VIAL) 10 unit 1X ONCE IV 03/03/18 13:45 03/03/18 13:46 DC 03/03/18 13:59 Furosemide (Lasix) 40 mg 1X ONCE IVP 03/03/18 13:45 03/03/18 13:46 DC 03/03/18 13:57 Vancomycin HCl 250 ml @ 250 mls/hr 1X ONCE IV 03/03/18 14:00 03/03/18 14:59 DC 03/03/18 14:57 Piperacillin Sod/ Tazobactam Sod 3.375 gm/Sodium Chloride 50 ml @ 100 mls/hr 1X ONCE IV 03/03/18 14:00 03/03/18 14:29 DC 03/03/18 14:03 Heparin Sodium (Porcine) (Heparin Sodium) 4,000 unit 1X ONCE IV 03/03/18 14:15 03/03/18 14:16 DC 03/03/18 14:58 Heparin Sodium/ Dextrose 500 ml @ 17.28 mls/ hr CONT PRN IV SEE I/O RECORD 03/03/18 14:15 03/03/18 15:00 Heparin Sodium (Porcine) (Heparin Sodium) 1,800 unit PRN Q6HRS PRN IV FOR UFH LEVEL LESS THAN 0.2 03/03/18 14:15 03/03/18 22:30 Insulin Human Lispro (HumaLOG) 0-7 UNITS TIDWMEALS SQ 03/03/18 17:00 03/03/18 16:49 Atenolol (Tenormin) 25 mg DAILY PO 03/03/18 16:30 03/03/18 17:31 Insulin Glargine (Lantus) 12 units QHS SQ 03/03/18 21:00 03/03/18 21:03 Insulin Human Lispro (HumaLOG) 8 units TIDWMEALS SQ 03/03/18 17:00 03/03/18 16:50 Zolpidem Tartrate (Ambien) 5 mg PRN QHS PRN PO INSOMNIA 03/03/18 17:15 03/03/18 21:01 ALLERGIES ALLERGIES: Coded Allergies: I S O L A T I O N *CONTACT* (Verified Allergy, Unknown, 11/07/17) mrsa amoxicillin (Verified Adverse Reaction, Mild, Rash, 04/12/16) on legs and trunk clavulanic acid (Verified Adverse Reaction, Mild, Rash, 04/12/16) on legs and trunk ROS Review of System 14 point ROS conducted with pertinent positives noted above in HPI. PHYSICAL EXAM General: Alert, Oriented X3, Cooperative, No acute distress HEENT: Atraumatic, Mucous membr. moist/pink Lungs: Clear to auscultation Heart: Regular rate, Normal S1, Normal S2, Other (2/6 systolic murmur ) Abdomen: No tenderness Extremities: Other (1+ bilateral LE edema ) Skin: No significant lesion Neuro: Normal speech, Sensation intact Psych/Mental Status: Mental status NL, Other (flat affect) VITALS VITALS Vital Signs Date Time Temp Pulse Resp B/P (MAP) Pulse Ox O2 Delivery O2 Flow Rate FiO2 03/04/18 04:00 98.4 69 17 134/76 (95) 97 Room Air 98.4 LABS Lab: Laboratory Tests Test 03/03/18 11:14 03/03/18 12:20 03/03/18 12:43 03/03/18 16:22 White Blood Count 21.8 x10^3/uL (4.0-11.0) Red Blood Count 3.79 x10^6/uL (3.50-5.40) Hemoglobin 10.9 g/dL (12.0-15.5) Hematocrit 34.2 % (36.0-47.0) Mean Corpuscular Volume 90 fL (79-100) Mean Corpuscular Hemoglobin 29 pg (25-35) Mean Corpuscular Hemoglobin Concent 32 g/dL (31-37) Red Cell Distribution Width 15.3 % (11.5-14.5) Platelet Count 402 x10^3/uL (140-400) Neutrophils (%) (Auto) 95 % (31-73) Lymphocytes (%) (Auto) 2 % (24-48) Monocytes (%) (Auto) 3 % (0-9) Eosinophils (%) (Auto) 0 % (0-3) Basophils (%) (Auto) 0 % (0-3) Neutrophils # (Auto) 20.7 x10^3uL (1.8-7.7) Lymphocytes # (Auto) 0.4 x10^3/uL (1.0-4.8) Monocytes # (Auto) 0.6 x10^3/uL (0.0-1.1) Eosinophils # (Auto) 0.0 x10^3/uL (0.0-0.7) Basophils # (Auto) 0.1 x10^3/uL (0.0-0.2) Segmented Neutrophils % 93 % (35-66) Band Neutrophils % 3 % (0-9) Lymphocytes % 4 % (24-48) Platelet Estimate Adequate (ADEQUATE) Sodium Level 124 mmol/L (136-145) Potassium Level 5.5 mmol/L (3.5-5.1) Chloride Level 93 mmol/L (98-107) Carbon Dioxide Level 21 mmol/L (21-32) Anion Gap 10 (6-14) Blood Urea Nitrogen 64 mg/dL (7-20) Creatinine 1.7 mg/dL (0.6-1.0) Estimated GFR (Cockcroft-Gault) 28.9 BUN/Creatinine Ratio 38 (6-20) Glucose Level 477 mg/dL (70-99) Calcium Level 9.5 mg/dL (8.5-10.1) Total Bilirubin 0.6 mg/dL (0.2-1.0) Aspartate Amino Transf (AST/SGOT) 109 U/L (15-37) Alanine Aminotransferase (ALT/SGPT) 154 U/L (14-59) Alkaline Phosphatase 163 U/L (46-116) Creatine Kinase 180 U/L (26-192) Troponin I Quantitative 1.025 ng/mL (0.000-0.055) GU-Exc-N-Type Natriuretic Peptide > 86241 pg/mL (0-449) Total Protein 7.6 g/dL (6.4-8.2) Albumin 2.4 g/dL (3.4-5.0) Albumin/Globulin Ratio 0.5 (1.0-1.7) Lactic Acid Level 2.1 mmol/L (0.4-2.0) Urine Collection Type U cath Urine Color Yellow Urine Clarity Clear Urine pH 5.0 Urine Specific [place] 1.025 Urine Protein 30 mg/dL (NEG-TRACE) Urine Glucose (UA) >=1000 mg/dL (NEG) Urine Ketones (Stick) Trace mg/dL (NEG) Urine Blood Negative (NEG) Urine Nitrite Negative (NEG) Urine Bilirubin Small (NEG) Urine Urobilinogen Dipstick 1.0 mg/dL (0.2 mg/dL) Urine Leukocyte Esterase Negative (NEG) Urine RBC 0 /HPF (0-2) Urine WBC 0 /HPF (0-4) Urine Bacteria 0 /HPF (0-FEW) Glucose (Fingerstick) 316 mg/dL (70-99) Test 03/03/18 17:05 03/03/18 20:50 03/03/18 21:00 03/04/18 04:30 Troponin I Quantitative 0.713 ng/mL (0.000-0.055) 0.674 ng/mL (0.000-0.055) Heparin Anti-Xa Act, Unfractionated 0.15 IU/mL (0.30-0.70) 0.20 IU/mL (0.30-0.70) Glucose (Fingerstick) 223 mg/dL (70-99) White Blood Count 18.1 x10^3/uL (4.0-11.0) Red Blood Count 3.60 x10^6/uL (3.50-5.40) Hemoglobin 10.3 g/dL (12.0-15.5) Hematocrit 32.2 % (36.0-47.0) Mean Corpuscular Volume 89 fL (79-100) Mean Corpuscular Hemoglobin 29 pg (25-35) Mean Corpuscular Hemoglobin Concent 32 g/dL (31-37) Red Cell Distribution Width 14.9 % (11.5-14.5) Platelet Count 364 x10^3/uL (140-400) Sodium Level 129 mmol/L (136-145) Potassium Level 4.5 mmol/L (3.5-5.1) Chloride Level 95 mmol/L (98-107) Carbon Dioxide Level 25 mmol/L (21-32) Anion Gap 9 (6-14) Blood Urea Nitrogen 63 mg/dL (7-20) Creatinine 1.5 mg/dL (0.6-1.0) Estimated GFR (Cockcroft-Gault) 33.4 Glucose Level 243 mg/dL (70-99) Calcium Level 9.0 mg/dL (8.5-10.1) Magnesium Level 2.1 mg/dL (1.8-2.4) ECHOCARDIOGRAM ECHOCARDIOGRAM <Conclusion> Left ventricle systolic function is low normal. The Ejection Fraction is 50%. Transmitral Doppler flow pattern is Grade I-abnormal relaxation pattern. The left atrium is mildly dilated. The right atrium is mildly dilated. A pacemaker is seen in the right atrium consistent with history. The aortic valve is calcified but opens well. Doppler and Color-flow revealed mild mitral regurgitation. Doppler and Color Flow revealed mild tricuspid regurgitation. There is mild pulmonary hypertension. The PA pressure was estimated at 45 mmHg. The pulmonic valve is not well visualized. Doppler and Color Flow revealed trace pulmonic valvular regurgitation. There is no evidence of significant pericardial effusion. DATE: 10/09/17 1645 ASSESSMENT/PLAN ASSESSMENT/PLAN 1. NSTEMI; peak 1.025. on heparin gtt. Most probably type II, demand ischemia in the setting of INO, sepsis. 2. Acute on chronic systolic HF; better compensated follow IV Lasix. 3. Cardiomyopathy; LVEF 35% per echo. Previously 50% 10/2017 4. INO 5. SSS s/p pacemaker (St. Giorgio). placed in 2008 per patient. Generator change . Insertion site infection present. No visualized vegetations on the pacemaker wire noted on echo. 6. Leukocytosis 7. Bacteremia; 2/2 Gram + cocci 8. Hyperkalemia 9. Hyponatremia 10. Elevated LFTs 11. DM.II with hyperglycemia Recommendations May discontinue heparin from a CV perspective. Caution IVFs; Lasix PRN Interrogate device. Note dependence Will possibly need device explanted IV antibiotic therapy Follow ID recs Consider [facility]ALLY for further evaluation Consider further ischemic workup on an outpatient basis given CMP JAVY GUERRA MD 03/04/18 1743: CARDIAC CONSULT ASSESSMENT/PLAN ASSESSMENT/PLAN Pt. seen and examined. Agree with above [employer] note. 82 y.o woman presented with malaise, left shoulder pain with drainage around pacer pocket. She has 2/2 bottles positive for G+cocci. On exam she has pain around the pacer site with superficial drainage. TTE reveals EF 25% without any clear valvular vegetations. Discussed case with ID - given that she has positive blood cultures, seeding of the leads cannot be ruled out. Due to her frailty, lead extraction may be a high risk case. Briefly discussed her case with [facility], will refer her for consideration of lead extraction with right sided placement, ? ICD versus new pacer depending on goals of care. She is not pacer dependent. Thanks. Will follow along until transfer. Continue Vancomycin. YANJERRY APRN Mar 04, 2018 08:37 JAVY GUERRA MD Mar 04, 2018 17:43
--- NOTE | 2018-03-04 09:17 | NUR ---
IP: Pt has a hx of + mrsa screen on 11/06/17. Pt to be in contact precautions until there are 2 negative screens 7 days apart.
--- NOTE | 2018-03-04 10:01 | PDOC2 ---
GI CONSULT Reason For Consult: N/v HPI: HPI: 82 y/o female who we saw in 11/2017 for short-liver swallowing issue following hernia repair. Esophagram noted tertiary contractions. This time, not feeling well for a couple weeks w/ weakness, some SOA, pain and drainage around pacemaker site. GI-ferrell, she tells me she has kept to a diet of liquids because it hurts to swallow - points to left neck down to pacemaker site. Says food/liquids do not get stuck. She reports "occasional" vomiting of "clear liquid" - seems had retching yesterday. RN unaware of any n/v issues. Denies reflux/heartburn, abd pain, diarrhea, constipation, hematochezia, melena , and weight loss. She does not recall previous EGD or colonoscopy. Our office has records of colonoscopy in 1998 w/ diverticulosis and hemorrhoids. S/p cholecystectomy ( she assumes for stones). No pancreas or liver history (past CT noted fatty replacement of pancreas). No NSAIDs. PMH: PMH: CHF, HTN, DM, depression, OA, diverticulosis, hemorrhoids cholecystectomy, umbilical hernia repair, tubal ligation, partial hysterectomy, bilateral lumpectomies, pacemaker/generator change, left heel debridement, cataract removal, RIH repair w/ mesh FH: Family History: No pertinent hx Social History: Smoke: No ALCOHOL: none Drugs: None ROS: GEN: Denies fevers, chills, sweats HEENT: Denies blurred vision, sore throat CV: +pacemaker pain RESP: Denies shortness of air, cough GI: Per HPI : Denies hematuria, dysuria ENDO: Denies weight changes NEURO: Denies confusion, dizziness MSK: +weakness SKIN: Denies jaundice, pruritus Vitals: Vitals: Vital Signs Date Time Temp Pulse Resp B/P (MAP) Pulse Ox O2 Delivery O2 Flow Rate FiO2 03/04/18 04:00 98.4 69 17 134/76 (95) 97 Room Air 98.4 Labs: Labs: Laboratory Tests Test 03/03/18 11:14 03/03/18 12:20 03/03/18 12:43 03/03/18 16:22 White Blood Count 21.8 x10^3/uL (4.0-11.0) Red Blood Count 3.79 x10^6/uL (3.50-5.40) Hemoglobin 10.9 g/dL (12.0-15.5) Hematocrit 34.2 % (36.0-47.0) Mean Corpuscular Volume 90 fL (79-100) Mean Corpuscular Hemoglobin 29 pg (25-35) Mean Corpuscular Hemoglobin Concent 32 g/dL (31-37) Red Cell Distribution Width 15.3 % (11.5-14.5) Platelet Count 402 x10^3/uL (140-400) Neutrophils (%) (Auto) 95 % (31-73) Lymphocytes (%) (Auto) 2 % (24-48) Monocytes (%) (Auto) 3 % (0-9) Eosinophils (%) (Auto) 0 % (0-3) Basophils (%) (Auto) 0 % (0-3) Neutrophils # (Auto) 20.7 x10^3uL (1.8-7.7) Lymphocytes # (Auto) 0.4 x10^3/uL (1.0-4.8) Monocytes # (Auto) 0.6 x10^3/uL (0.0-1.1) Eosinophils # (Auto) 0.0 x10^3/uL (0.0-0.7) Basophils # (Auto) 0.1 x10^3/uL (0.0-0.2) Segmented Neutrophils % 93 % (35-66) Band Neutrophils % 3 % (0-9) Lymphocytes % 4 % (24-48) Platelet Estimate Adequate (ADEQUATE) Sodium Level 124 mmol/L (136-145) Potassium Level 5.5 mmol/L (3.5-5.1) Chloride Level 93 mmol/L (98-107) Carbon Dioxide Level 21 mmol/L (21-32) Anion Gap 10 (6-14) Blood Urea Nitrogen 64 mg/dL (7-20) Creatinine 1.7 mg/dL (0.6-1.0) Estimated GFR (Cockcroft-Gault) 28.9 BUN/Creatinine Ratio 38 (6-20) Glucose Level 477 mg/dL (70-99) Calcium Level 9.5 mg/dL (8.5-10.1) Total Bilirubin 0.6 mg/dL (0.2-1.0) Aspartate Amino Transf (AST/SGOT) 109 U/L (15-37) Alanine Aminotransferase (ALT/SGPT) 154 U/L (14-59) Alkaline Phosphatase 163 U/L (46-116) Creatine Kinase 180 U/L (26-192) Troponin I Quantitative 1.025 ng/mL (0.000-0.055) MS-Byx-F-Type Natriuretic Peptide > 66654 pg/mL (0-449) Total Protein 7.6 g/dL (6.4-8.2) Albumin 2.4 g/dL (3.4-5.0) Albumin/Globulin Ratio 0.5 (1.0-1.7) Lactic Acid Level 2.1 mmol/L (0.4-2.0) Urine Collection Type U cath Urine Color Yellow Urine Clarity Clear Urine pH 5.0 Urine Specific [place] 1.025 Urine Protein 30 mg/dL (NEG-TRACE) Urine Glucose (UA) >=1000 mg/dL (NEG) Urine Ketones (Stick) Trace mg/dL (NEG) Urine Blood Negative (NEG) Urine Nitrite Negative (NEG) Urine Bilirubin Small (NEG) Urine Urobilinogen Dipstick 1.0 mg/dL (0.2 mg/dL) Urine Leukocyte Esterase Negative (NEG) Urine RBC 0 /HPF (0-2) Urine WBC 0 /HPF (0-4) Urine Bacteria 0 /HPF (0-FEW) Glucose (Fingerstick) 316 mg/dL (70-99) Test 03/03/18 17:05 03/03/18 20:50 03/03/18 21:00 03/04/18 04:30 Troponin I Quantitative 0.713 ng/mL (0.000-0.055) 0.674 ng/mL (0.000-0.055) Heparin Anti-Xa Act, Unfractionated 0.15 IU/mL (0.30-0.70) 0.20 IU/mL (0.30-0.70) Glucose (Fingerstick) 223 mg/dL (70-99) White Blood Count 18.1 x10^3/uL (4.0-11.0) Red Blood Count 3.60 x10^6/uL (3.50-5.40) Hemoglobin 10.3 g/dL (12.0-15.5) Hematocrit 32.2 % (36.0-47.0) Mean Corpuscular Volume 89 fL (79-100) Mean Corpuscular Hemoglobin 29 pg (25-35) Mean Corpuscular Hemoglobin Concent 32 g/dL (31-37) Red Cell Distribution Width 14.9 % (11.5-14.5) Platelet Count 364 x10^3/uL (140-400) Sodium Level 129 mmol/L (136-145) Potassium Level 4.5 mmol/L (3.5-5.1) Chloride Level 95 mmol/L (98-107) Carbon Dioxide Level 25 mmol/L (21-32) Anion Gap 9 (6-14) Blood Urea Nitrogen 63 mg/dL (7-20) Creatinine 1.5 mg/dL (0.6-1.0) Estimated GFR (Cockcroft-Gault) 33.4 Glucose Level 243 mg/dL (70-99) Calcium Level 9.0 mg/dL (8.5-10.1) Magnesium Level 2.1 mg/dL (1.8-2.4) Allergies: Coded Allergies: I S O L A T I O N *CONTACT* (Verified Allergy, Unknown, 11/07/17) mrsa amoxicillin (Verified Adverse Reaction, Mild, Rash, 04/12/16) on legs and trunk clavulanic acid (Verified Adverse Reaction, Mild, Rash, 04/12/16) on legs and trunk Medications: Current Medications Medications (Trade) Dose Ordered Sig/Leonel Route PRN Reason Start Time Stop Time Status Last Admin Dose Admin Sodium Chloride 1,000 ml @ 1,000 mls/hr Q1H IV 03/03/18 10:52 03/03/18 11:51 DC 03/03/18 11:15 Ondansetron HCl (Zofran) 4 mg 1X ONCE IV 03/03/18 13:00 03/03/18 13:01 DC 03/03/18 12:49 Insulin Human Regular (HumuLIN R VIAL) 10 unit 1X ONCE IV 03/03/18 13:45 03/03/18 13:46 DC 03/03/18 13:59 Furosemide (Lasix) 40 mg 1X ONCE IVP 03/03/18 13:45 03/03/18 13:46 DC 03/03/18 13:57 Vancomycin HCl 250 ml @ 250 mls/hr 1X ONCE IV 03/03/18 14:00 03/03/18 14:59 DC 03/03/18 14:57 Piperacillin Sod/ Tazobactam Sod 3.375 gm/Sodium Chloride 50 ml @ 100 mls/hr 1X ONCE IV 03/03/18 14:00 03/03/18 14:29 DC 03/03/18 14:03 Heparin Sodium (Porcine) (Heparin Sodium) 4,000 unit 1X ONCE IV 03/03/18 14:15 03/03/18 14:16 DC 03/03/18 14:58 Heparin Sodium/ Dextrose 500 ml @ 17.28 mls/ hr CONT PRN IV SEE I/O RECORD 03/03/18 14:15 03/03/18 15:00 Heparin Sodium (Porcine) (Heparin Sodium) 1,800 unit PRN Q6HRS PRN IV FOR UFH LEVEL LESS THAN 0.2 03/03/18 14:15 03/03/18 22:30 Insulin Human Lispro (HumaLOG) 0-7 UNITS TIDWMEALS SQ 03/03/18 17:00 03/03/18 16:49 Atenolol (Tenormin) 25 mg DAILY PO 03/03/18 16:30 03/03/18 17:31 Insulin Glargine (Lantus) 12 units QHS SQ 03/03/18 21:00 03/03/18 21:03 Insulin Human Lispro (HumaLOG) 8 units TIDWMEALS SQ 03/03/18 17:00 03/03/18 16:50 Zolpidem Tartrate (Ambien) 5 mg PRN QHS PRN PO INSOMNIA 03/03/18 17:15 03/03/18 21:01 Imaging: Imaging: CXR Impression: Small bilateral pleural effusions and mild perihilar interstitial pulmonary edema consistent with mild CHF. CT A/P 03/03/18 IMPRESSION: 1. No acute abnormality of abdomen or pelvis. 2. Small bilateral pleural effusions with small amount of ascites. 3. Interval repair of right inguinal hernia. There is a small fat-containing inguinal hernia on the left, unchanged. 4. Multiple thoracic and lumbar wedge compression fractures, unchanged from prior exam. PE: GEN: NAD - was asleep HEENT: Atraumatic, PERRL - voice is very quiet, has trouble speaking for a moment LUNGS: CTAB HEART: RRR - tender to light touch around pacemaker ABD: NABS, S/ND/NT EXTREMITY: No edema SKIN: No rashes, no jaundice NEURO/PSYCH: A & O �3 A/P: A/P: Odynophagia, n/v/retching NSTEMI, CHF, pacemaker in place w/ pain and drainage INO, hyperkalemia, hyponatremia Leukocytosis, bacteremia (gram + cocci) DM, hyperglycemia Presbyesophagus CRC screen - seems overdue for screening Diverticulosis S/p cholecystectomy Chronic anemia -- Note orders for INSTRUCTIONAL [employer] SERVICES TECHNICIAN eval. Will add acid-drapery seamstress and return w/ Dr. Castillo later today. ?GI cocktail ? Nystatin GABRIELLE FULTON Mar 04, 2018 10:01
--- NOTE | 2018-03-04 10:09 | PDOC2 ---
CONSULT Date of Consult Date of Consult DATE: 03/04/18 TIME: 09:45 Reason for Consult Reason for Consult: Renal failure, Hyponatremia Source Source: Chart review History of Present Illness Reason for Visit: Pt is an 82-year-old female who presents with complaint of not feeling well, nausea and lethargy. IN the ER, she reported intermittent nausea and vomiting for the last couple of weeks She has decreased PO intake, no diarrhea . She reports having dry heaves intermittently, No Vomiting now. c/o pain during swallowing Denies chest pain, has mild dyspnea, and general malaise. She also indicates that she has been having drainage from the site of her pacemaker. She denies any urinary complaints Past Medical History Cardiovascular: CHF, HTN Pulmonary: No pertinent hx CENTRAL NERVOUS SYSTEM: Dementia, Periperal neuropathy GI: No pertinent hx Heme/Onc: No pertinent hx Hepatobiliary: No pertinent hx Psych: Anxiety, Depression Musculoskeletal: Osteoarthritis Rheumatologic: No pertinent hx Infectious disease: No pertinent hx Renal/: No pertinent hx Endocrine: Diabetes Past Surgical History Past Surgical History: Pacemaker ([employer]), Cholecystectomy, Cataract Removal , Tubal Ligation, Tonsillectomy, Hysterectomy Family History Family History: Coronary Artery Disease Social History Social History: Other No ALCOHOL: none Drugs: None Current Problem List Problem List Problems Medical Problems: (1) Acute kidney injury Status: Acute (2) Congestive heart failure Status: Acute (3) Hyponatremia Status: Acute (4) NSTEMI (non-ST elevated myocardial infarction) Status: Acute (5) Type 2 diabetes mellitus with hyperglycemia Status: Acute Current Medications Current Medications Current Medications Sodium Chloride 1,000 ml @ 1,000 mls/hr Q1H IV Last administered on 03/03/18at 11:15; Start 03/03/18 at 10:52; Stop 03/03/18 at 11:51; Status DC Ondansetron HCl (Zofran) 4 mg STK-MED ONCE .ROUTE ; Start 03/03/18 at 11:53; Stop 03/03/18 at 11:55; Status DC Ondansetron HCl (Zofran) 4 mg 1X ONCE IM ; Start 03/03/18 at 12:15; Stop at 12:16; Status DC Ondansetron HCl (Zofran) 4 mg 1X ONCE IV Last administered on 03/03/18at 12:49 ; Start 03/03/18 at 13:00; Stop 03/03/18 at 13:01; Status DC Insulin Human Regular (HumuLIN R VIAL) 10 unit 1X ONCE IV Last administered on 03/03/18at 13:59; Start 03/03/18 at 13:45; Stop 03/03/18 at 13:46; Status DC Furosemide (Lasix) 40 mg 1X ONCE IVP Last administered on 03/03/18at 13:57; Start 03/03/18 at 13:45; Stop 03/03/18 at 13:46; Status DC Vancomycin HCl 250 ml @ 250 mls/hr 1X ONCE IV Last administered on 03/03/18at 14:57; Start 03/03/18 at 14:00; Stop 03/03/18 at 14:59; Status DC Piperacillin Sod/ Tazobactam Sod 3.375 gm/Sodium Chloride 50 ml @ 100 mls/hr 1X ONCE IV Last administered on 03/03/18at 14:03; Start 03/03/18 at 14:00; Stop 03/03/18 at 14:29; Status DC Ondansetron HCl (Zofran) 4 mg PRN Q8HRS PRN IV NAUSEA/VOMITING; Start 03/03/18 at 14:15; Stop 03/03/18 at 17:14; Status DC Heparin Sodium (Porcine) (Heparin Sodium) 4,000 unit 1X ONCE IV Last administered on 03/03/18at 14:58; Start 03/03/18 at 14:15; Stop 03/03/18 at 14:16 ; Status DC Heparin Sodium/ Dextrose 500 ml @ 17.28 mls/ hr CONT PRN IV SEE I/O RECORD Last administered on 03/03/18at 15:00; Start 03/03/18 at 14:15 Heparin Sodium (Porcine) (Heparin Sodium) 1,800 unit PRN Q6HRS PRN IV FOR UFH LEVEL LESS THAN 0.2 Last administered on 03/03/18at 22:30; Start 03/03/18 at 14: 15 Insulin Human Lispro (HumaLOG) 0-7 UNITS TIDWMEALS SQ Last administered on 03/03at 16:49; Start 03/03/18 at 17:00 Dextrose (Dextrose 50%-Water Syringe) 12.5 gm PRN Q15MIN PRN IV SEE COMMENTS; Start 03/03/18 at 15:45 Albuterol Sulfate (Ventolin Neb Soln) 2.5 mg PRN Q6HRS PRN INH SHORTNESS OF BREATH; Start 03/03/18 at 15:45 Apixaban (Eliquis) 2.5 mg BID PO ; Start 03/03/18 at 21:00; Status UNV Acetaminophen/ Hydrocodone Bitart (Lortab 5/325) 1 tab PRN Q4HRS PRN PO moderate pain; Start 03/03/18 at 15:45 Amlodipine Besylate (Norvasc) 2.5 mg DAILY PO ; Start 03/03/18 at 16:30; Stop at 17:16; Status DC Atenolol (Tenormin) 25 mg DAILY PO Last administered on 03/03/18at 17:31; Start 03/03/18 at 16:30 Insulin Glargine (Lantus) 12 units QHS SQ Last administered on 03/03/18at 21:03 ; Start 03/03/18 at 21:00 Insulin Human Lispro (HumaLOG) 8 units TIDWMEALS SQ Last administered on at 16:50; Start 03/03/18 at 17:00 Zolpidem Tartrate (Ambien) 5 mg PRN QHS PRN PO INSOMNIA Last administered on at 21:01; Start 03/03/18 at 17:15 Ondansetron HCl (Zofran) 4 mg PRN Q6HRS PRN IV NAUSEA/VOMITING; Start 03/03/18 at 17:15 Vancomycin HCl (Vanco Per Pharmacy) 1 each PRN DAILY PRN MC SEE COMMENTS; Start 03/04/18 at 09:15; Status UNV Active Scripts Active Glipizide Er (Glipizide) 5 Mg Tab.er.24 10 Mg PO BIDWMEALS 30 Days Proair Hfa Inhaler (Albuterol Sulfate) 8.5 Gm Hfa.aer.ad 1 Puff INH PRN Q6HRS PRN Atenolol 25 Mg Tablet 25 Mg PO DAILY Reported Hydrochlorothiazide Tablet (Hydrochlorothiazide) 25 Mg Tablet 1 Tab PO DAILY Allergies Allergies: Coded Allergies: I S O L A T I O N *CONTACT* (Verified Allergy, Unknown, 11/07/17) mrsa amoxicillin (Verified Adverse Reaction, Mild, Rash, 04/12/16) on legs and trunk clavulanic acid (Verified Adverse Reaction, Mild, Rash, 04/12/16) on legs and trunk ROS Review of System As per HPI Physical Exam Physical Exam General:No distress HEENT: PERRLA, OM dry neck Supple Lungs: Clear to auscultation Heart: S1S2 Abdomen: Normal bowel sounds, Soft Extremities: trace LE edema, changes of CVI+ Neuro: Grossly Normal, lethargic Skin- No Rash Chest - Pacemaker Lt - No He , No CVA or SP tenderness Vital Signs Vital Signs Date Time Temp Pulse Resp B/P (MAP) Pulse Ox O2 Delivery O2 Flow Rate FiO2 03/04/18 04:00 98.4 69 17 134/76 (95) 97 Room Air 98.4 Assessment & Plan INO - suspect vasomotor /Sepsis Baseline ckd+ , UA unremarkable except Glucosuria + Ct scan Kidneys/Bladder Unremarkable On IVF- cautiously, CHF + E-lytes stable, currently no emergent indication for HD Strict I/O , No he, Good UOP as per RN CKD stage3- Baseline Cr 1.2-1.4 Hyponatremia- Pre-renal , Cardiorenal Mild, after correcting for Glucose Nausea/ vomiting / abd pain GI following Sepsis - Leukocytosis, pacemaker infection On Abx, ID following Severe malnutrition Acute on chronic diastolic CHF CxR reported mild congestion ,currently on RA Discussed with Pt and RN Labs Labs Laboratory Tests Test 03/03/18 11:14 03/03/18 12:20 03/03/18 12:43 03/03/18 16:22 White Blood Count 21.8 x10^3/uL (4.0-11.0) Red Blood Count 3.79 x10^6/uL (3.50-5.40) Hemoglobin 10.9 g/dL (12.0-15.5) Hematocrit 34.2 % (36.0-47.0) Mean Corpuscular Volume 90 fL (79-100) Mean Corpuscular Hemoglobin 29 pg (25-35) Mean Corpuscular Hemoglobin Concent 32 g/dL (31-37) Red Cell Distribution Width 15.3 % (11.5-14.5) Platelet Count 402 x10^3/uL (140-400) Neutrophils (%) (Auto) 95 % (31-73) Lymphocytes (%) (Auto) 2 % (24-48) Monocytes (%) (Auto) 3 % (0-9) Eosinophils (%) (Auto) 0 % (0-3) Basophils (%) (Auto) 0 % (0-3) Neutrophils # (Auto) 20.7 x10^3uL (1.8-7.7) Lymphocytes # (Auto) 0.4 x10^3/uL (1.0-4.8) Monocytes # (Auto) 0.6 x10^3/uL (0.0-1.1) Eosinophils # (Auto) 0.0 x10^3/uL (0.0-0.7) Basophils # (Auto) 0.1 x10^3/uL (0.0-0.2) Segmented Neutrophils % 93 % (35-66) Band Neutrophils % 3 % (0-9) Lymphocytes % 4 % (24-48) Platelet Estimate Adequate (ADEQUATE) Sodium Level 124 mmol/L (136-145) Potassium Level 5.5 mmol/L (3.5-5.1) Chloride Level 93 mmol/L (98-107) Carbon Dioxide Level 21 mmol/L (21-32) Anion Gap 10 (6-14) Blood Urea Nitrogen 64 mg/dL (7-20) Creatinine 1.7 mg/dL (0.6-1.0) Estimated GFR (Cockcroft-Gault) 28.9 BUN/Creatinine Ratio 38 (6-20) Glucose Level 477 mg/dL (70-99) Calcium Level 9.5 mg/dL (8.5-10.1) Total Bilirubin 0.6 mg/dL (0.2-1.0) Aspartate Amino Transf (AST/SGOT) 109 U/L (15-37) Alanine Aminotransferase (ALT/SGPT) 154 U/L (14-59) Alkaline Phosphatase 163 U/L (46-116) Creatine Kinase 180 U/L (26-192) Troponin I Quantitative 1.025 ng/mL (0.000-0.055) AL-Hgo-X-Type Natriuretic Peptide > 29041 pg/mL (0-449) Total Protein 7.6 g/dL (6.4-8.2) Albumin 2.4 g/dL (3.4-5.0) Albumin/Globulin Ratio 0.5 (1.0-1.7) Lactic Acid Level 2.1 mmol/L (0.4-2.0) Urine Collection Type U cath Urine Color Yellow Urine Clarity Clear Urine pH 5.0 Urine Specific [place] 1.025 Urine Protein 30 mg/dL (NEG-TRACE) Urine Glucose (UA) >=1000 mg/dL (NEG) Urine Ketones (Stick) Trace mg/dL (NEG) Urine Blood Negative (NEG) Urine Nitrite Negative (NEG) Urine Bilirubin Small (NEG) Urine Urobilinogen Dipstick 1.0 mg/dL (0.2 mg/dL) Urine Leukocyte Esterase Negative (NEG) Urine RBC 0 /HPF (0-2) Urine WBC 0 /HPF (0-4) Urine Bacteria 0 /HPF (0-FEW) Glucose (Fingerstick) 316 mg/dL (70-99) Test 03/03/18 17:05 03/03/18 20:50 03/03/18 21:00 03/04/18 04:30 Troponin I Quantitative 0.713 ng/mL (0.000-0.055) 0.674 ng/mL (0.000-0.055) Heparin Anti-Xa Act, Unfractionated 0.15 IU/mL (0.30-0.70) 0.20 IU/mL (0.30-0.70) Glucose (Fingerstick) 223 mg/dL (70-99) White Blood Count 18.1 x10^3/uL (4.0-11.0) Red Blood Count 3.60 x10^6/uL (3.50-5.40) Hemoglobin 10.3 g/dL (12.0-15.5) Hematocrit 32.2 % (36.0-47.0) Mean Corpuscular Volume 89 fL (79-100) Mean Corpuscular Hemoglobin 29 pg (25-35) Mean Corpuscular Hemoglobin Concent 32 g/dL (31-37) Red Cell Distribution Width 14.9 % (11.5-14.5) Platelet Count 364 x10^3/uL (140-400) Sodium Level 129 mmol/L (136-145) Potassium Level 4.5 mmol/L (3.5-5.1) Chloride Level 95 mmol/L (98-107) Carbon Dioxide Level 25 mmol/L (21-32) Anion Gap 9 (6-14) Blood Urea Nitrogen 63 mg/dL (7-20) Creatinine 1.5 mg/dL (0.6-1.0) Estimated GFR (Cockcroft-Gault) 33.4 Glucose Level 243 mg/dL (70-99) Calcium Level 9.0 mg/dL (8.5-10.1) Magnesium Level 2.1 mg/dL (1.8-2.4) Laboratory Tests Test 03/03/18 11:14 03/03/18 12:20 03/03/18 12:43 03/03/18 16:22 White Blood Count 21.8 x10^3/uL (4.0-11.0) Red Blood Count 3.79 x10^6/uL (3.50-5.40) Hemoglobin 10.9 g/dL (12.0-15.5) Hematocrit 34.2 % (36.0-47.0) Mean Corpuscular Volume 90 fL (79-100) Mean Corpuscular Hemoglobin 29 pg (25-35) Mean Corpuscular Hemoglobin Concent 32 g/dL (31-37) Red Cell Distribution Width 15.3 % (11.5-14.5) Platelet Count 402 x10^3/uL (140-400) Neutrophils (%) (Auto) 95 % (31-73) Lymphocytes (%) (Auto) 2 % (24-48) Monocytes (%) (Auto) 3 % (0-9) Eosinophils (%) (Auto) 0 % (0-3) Basophils (%) (Auto) 0 % (0-3) Neutrophils # (Auto) 20.7 x10^3uL (1.8-7.7) Lymphocytes # (Auto) 0.4 x10^3/uL (1.0-4.8) Monocytes # (Auto) 0.6 x10^3/uL (0.0-1.1) Eosinophils # (Auto) 0.0 x10^3/uL (0.0-0.7) Basophils # (Auto) 0.1 x10^3/uL (0.0-0.2) Segmented Neutrophils % 93 % (35-66) Band Neutrophils % 3 % (0-9) Lymphocytes % 4 % (24-48) Platelet Estimate Adequate (ADEQUATE) Sodium Level 124 mmol/L (136-145) Potassium Level 5.5 mmol/L (3.5-5.1) Chloride Level 93 mmol/L (98-107) Carbon Dioxide Level 21 mmol/L (21-32) Anion Gap 10 (6-14) Blood Urea Nitrogen 64 mg/dL (7-20) Creatinine 1.7 mg/dL (0.6-1.0) Estimated GFR (Cockcroft-Gault) 28.9 BUN/Creatinine Ratio 38 (6-20) Glucose Level 477 mg/dL (70-99) Calcium Level 9.5 mg/dL (8.5-10.1) Total Bilirubin 0.6 mg/dL (0.2-1.0) Aspartate Amino Transf (AST/SGOT) 109 U/L (15-37) Alanine Aminotransferase (ALT/SGPT) 154 U/L (14-59) Alkaline Phosphatase 163 U/L (46-116) Creatine Kinase 180 U/L (26-192) Troponin I Quantitative 1.025 ng/mL (0.000-0.055) XF-Flh-I-Type Natriuretic Peptide > 59521 pg/mL (0-449) Total Protein 7.6 g/dL (6.4-8.2) Albumin 2.4 g/dL (3.4-5.0) Albumin/Globulin Ratio 0.5 (1.0-1.7) Lactic Acid Level 2.1 mmol/L (0.4-2.0) Urine Collection Type U cath Urine Color Yellow Urine Clarity Clear Urine pH 5.0 Urine Specific [place] 1.025 Urine Protein 30 mg/dL (NEG-TRACE) Urine Glucose (UA) >=1000 mg/dL (NEG) Urine Ketones (Stick) Trace mg/dL (NEG) Urine Blood Negative (NEG) Urine Nitrite Negative (NEG) Urine Bilirubin Small (NEG) Urine Urobilinogen Dipstick 1.0 mg/dL (0.2 mg/dL) Urine Leukocyte Esterase Negative (NEG) Urine RBC 0 /HPF (0-2) Urine WBC 0 /HPF (0-4) Urine Bacteria 0 /HPF (0-FEW) Glucose (Fingerstick) 316 mg/dL (70-99) Test 03/03/18 17:05 03/03/18 20:50 03/03/18 21:00 03/04/18 04:30 Troponin I Quantitative 0.713 ng/mL (0.000-0.055) 0.674 ng/mL (0.000-0.055) Heparin Anti-Xa Act, Unfractionated 0.15 IU/mL (0.30-0.70) 0.20 IU/mL (0.30-0.70) Glucose (Fingerstick) 223 mg/dL (70-99) White Blood Count 18.1 x10^3/uL (4.0-11.0) Red Blood Count 3.60 x10^6/uL (3.50-5.40) Hemoglobin 10.3 g/dL (12.0-15.5) Hematocrit 32.2 % (36.0-47.0) Mean Corpuscular Volume 89 fL (79-100) Mean Corpuscular Hemoglobin 29 pg (25-35) Mean Corpuscular Hemoglobin Concent 32 g/dL (31-37) Red Cell Distribution Width 14.9 % (11.5-14.5) Platelet Count 364 x10^3/uL (140-400) Sodium Level 129 mmol/L (136-145) Potassium Level 4.5 mmol/L (3.5-5.1) Chloride Level 95 mmol/L (98-107) Carbon Dioxide Level 25 mmol/L (21-32) Anion Gap 9 (6-14) Blood Urea Nitrogen 63 mg/dL (7-20) Creatinine 1.5 mg/dL (0.6-1.0) Estimated GFR (Cockcroft-Gault) 33.4 Glucose Level 243 mg/dL (70-99) Calcium Level 9.0 mg/dL (8.5-10.1) Magnesium Level 2.1 mg/dL (1.8-2.4) Review All relevant outside records, renal labs, imaging studies, telemetry/EKG's were reviewed. Images Images CT abdomen and pelvis-- Limited images of lung bases show small bilateral pleural effusions. There is patchy groundglass opacity in the lower lobes. Heart size within normal limits. No pericardial effusion. Coronary artery calcifications. Solid abdominal viscera not well evaluated in the absence of contrast material. No apparent attenuation abnormality of the liver or spleen. There is fatty replacement of the pancreas. Adrenal glands and kidneys are unremarkable. No apparent stone or hydronephrosis. Unopacified GI tract normal in caliber and contour. No focal bowel wall thickening. No inflammatory stranding in the mesentery. The appendix is normal in caliber. No ascites or lymphadenopathy. Abdominal aorta normal in caliber. Images of pelvis show nondistended urinary bladder. Uterus is surgically absent. No free pelvic fluid or pelvic lymphadenopathy. Small left inguinal hernia containing only fat, unchanged. The previously described right inguinal hernia is no longer visualized and may been repaired in the interim. Small amount of ascites. No lymphadenopathy. Bone windows show no acute findings. There is multilevel spondylosis. Wedge compression deformities of T9, T12 and L2 are similar to prior study. IMPRESSION: 1. No acute abnormality of abdomen or pelvis. 2. Small bilateral pleural effusions with small amount of ascites. 3. Interval repair of right inguinal hernia. There is a small fat-containing inguinal hernia on the left, unchanged. 4. Multiple thoracic and lumbar wedge compression fractures, unchanged CxR-- Impression: Small bilateral pleural effusions and mild perihilar interstitial pulmonary edema consistent with mild CHF. RADHA HILARIO MD Mar 04, 2018 10:09
[2018-03-04] MEDS ORDERED: VANCOMYCIN 1.25 GM in IV NORMAL SALINE 250ML 250 ML IV SCH (11:00)
[2018-03-04] MEDS: VANCOMYCIN PER PHARMACY MC PRN (11:03)
--- NOTE | 2018-03-04 11:05 | NUR ---
Pharmacy Vancomycin Dosing Note S:Consulted to monitor and dose vancomycin started 03/03/18. O:GIUSEPPE DURHAM is a 82 year old F with Pneumonia . Height: 5 feet, 7 inches Weight: 85.369043 kg [place] Body Weight: 61.60 Adjusted Body Weight: 70.96 Dosing Weight: Actual Other Antibiotics: LABS: Last BUN: Last Creatinine: 1.5 Creatinine Clearance: 33 mL/min Last WBC: 18.1 Last Procalcitonin: Tmax (past 24 hours): Microbiology: I/O: Drug Levels: Last level: on at Last dose given 03/03/18 at 1457 Vancomycin Dosing: Loading Dose: x1 Dosing Weight: Actual Target Trough: 15-20 A: Based on: WEIGHT/RENAL FUNCITON/1GM GIVEN 18 HRS PRIOR, P: 1. Begin Vancomycin 1250 mg IV q24h 2. Follow up Trough level on 03/06/18 at 1030 3. Pharmacy will continue to monitor, follow and adjust therapy as needed. NICKY RAVI [facility], 03/04/18 [id number]
--- NOTE | 2018-03-04 11:34 | RAD ---
Bilateral carotid Doppler ultrasound 03/05/2018 Clinical indication: Left-sided neck pain Comparison: None Findings: Multiple grayscale, color, and duplex spectral analysis waveform sonographic images were acquired of the carotid, subclavian, and vertebral arteries. Velocities used to determine stenosis are known to correlate with NASCET angiographic criteria. RIGHT: Mid common carotid artery PSV: 75 cm/sec Distal internal carotid artery PSV: 68 cm/sec Distal internal carotid artery EDV: 16 cm/sec External carotid artery PSV: 137 cm/sec ICA/CCA ratio: 0.9 LEFT: Mid common carotid artery PSV: 93 cm/sec Proximal internal carotid artery PSV: 105 cm/sec Proximal internal carotid artery EDV: 18 cm/sec External carotid artery PSV: 267 cm/sec ICA/CCA ratio: 1.1 There is minimal intimal thickening throughout the right common carotid artery without high-grade visualized narrowing. There is mild plaque at the right carotid bifurcation without high-grade visualized narrowing. There is mixed plaque at the left carotid bifurcation resulting in at least 50 percent visual stenosis. The visualized portions of the left and right vertebral arteries are patent with normal direction of flow. There is antegrade flow in the bilateral vertebral arteries. Impression: 1. At least 50 % visual narrowing of the left carotid bifurcation which is discrepant from the spectral analysis findings of less than 50 %. If clinically indicated, CTA neck could be performed for further evaluation. 2. No visual or spectral analysis evidence of clinically significant right internal carotid artery stenosis. Electronically signed by: Jere Patel MD (03/04/2018 11:29 AM) [facility]
--- NOTE | 2018-03-04 11:42 | PDOC ---
Infectious Disease Note Vital Sign Vital Signs Vital Signs Date Time Temp Pulse Resp B/P (MAP) Pulse Ox O2 Delivery O2 Flow Rate FiO2 03/04/18 04:00 98.4 69 17 134/76 (95) 97 Room Air 98.4 Labs Lab Laboratory Tests Test 03/03/18 12:20 03/03/18 12:43 03/03/18 16:22 03/03/18 17:05 Lactic Acid Level 2.1 mmol/L (0.4-2.0) Urine Collection Type U cath Urine Color Yellow Urine Clarity Clear Urine pH 5.0 Urine Specific [place] 1.025 Urine Protein 30 mg/dL (NEG-TRACE) Urine Glucose (UA) >=1000 mg/dL (NEG) Urine Ketones (Stick) Trace mg/dL (NEG) Urine Blood Negative (NEG) Urine Nitrite Negative (NEG) Urine Bilirubin Small (NEG) Urine Urobilinogen Dipstick 1.0 mg/dL (0.2 mg/dL) Urine Leukocyte Esterase Negative (NEG) Urine RBC 0 /HPF (0-2) Urine WBC 0 /HPF (0-4) Urine Bacteria 0 /HPF (0-FEW) Glucose (Fingerstick) 316 mg/dL (70-99) Troponin I Quantitative 0.713 ng/mL (0.000-0.055) Test 03/03/18 20:50 03/03/18 21:00 03/04/18 04:30 Heparin Anti-Xa Act, Unfractionated 0.15 IU/mL (0.30-0.70) 0.20 IU/mL (0.30-0.70) Glucose (Fingerstick) 223 mg/dL (70-99) White Blood Count 18.1 x10^3/uL (4.0-11.0) Red Blood Count 3.60 x10^6/uL (3.50-5.40) Hemoglobin 10.3 g/dL (12.0-15.5) Hematocrit 32.2 % (36.0-47.0) Mean Corpuscular Volume 89 fL (79-100) Mean Corpuscular Hemoglobin 29 pg (25-35) Mean Corpuscular Hemoglobin Concent 32 g/dL (31-37) Red Cell Distribution Width 14.9 % (11.5-14.5) Platelet Count 364 x10^3/uL (140-400) Sodium Level 129 mmol/L (136-145) Potassium Level 4.5 mmol/L (3.5-5.1) Chloride Level 95 mmol/L (98-107) Carbon Dioxide Level 25 mmol/L (21-32) Anion Gap 9 (6-14) Blood Urea Nitrogen 63 mg/dL (7-20) Creatinine 1.5 mg/dL (0.6-1.0) Estimated GFR (Cockcroft-Gault) 33.4 Glucose Level 243 mg/dL (70-99) Calcium Level 9.0 mg/dL (8.5-10.1) Magnesium Level 2.1 mg/dL (1.8-2.4) Troponin I Quantitative 0.674 ng/mL (0.000-0.055) Micro Microbiology 03/03/18 Blood Culture - Final, Complete Objective Assessment Leukocytosis 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
[2018-03-04 12:00] VITALS: BP 116/77
--- NOTE | 2018-03-04 12:08 | CARD ---
MR#: [id number] Date of Study: 03/04/2018 Ordering Physician: KRUNAL PARDO, Referring Physician: TAMARA LI Tech: Jen Haro RDCS APPROVED REPORT EXAM: Two-dimensional and M-mode echocardiogram with Doppler and color Doppler. Other Information Quality : Good INDICATION R/O Vegetation on Pacemaker Wire 2D DIMENSIONS RVDd2.6 (2.9-3.5cm)Left Atrium(2D)3.8 (1.6-4.0cm) IVSd0.8 (0.7-1.1cm)Aortic Root(2D)2.5 (2.0-3.7cm) LVDd5.4 (3.9-5.9cm)LVOT Diameter2.0 (1.8-2.4cm) PWd0.8 (0.7-1.1cm)LVDs3.4 (2.5-4.0cm) FS (%) 20.0 %SV94.6 ml LVEF(%)40.0 (>50%) Aortic Valve AoV Peak Junior.105.1cm/sAoV VTI21.5cm AO Peak GR.4.4mmHgLVOT Peak Junior.74.9cm/s LVOT VTI 15.17cmAO Mean GR.2mmHg HELEN (VMAX)2.01ts6KQA (VTI)2.28cm2 Mitral Valve MV E Bupolksh04.5cm/sMV DECEL [id number] MV A Afzwdwtg07.2cm/sMV OIT76xg E/A Ratio1.1MVA (PHT)3.98cm2 TDI E/Lateral E'10.2E/Medial E'16.9 Tricuspid Valve TR P. Drcywnro569ft/sRAP [id number] TR Peak Gr.76ndTxOPNT71bpRo Pulmonary Vein S1 Rzwmeaci24.7cm/sD2 Bwtxhjug29.7cm/s LEFT VENTRICLE The left ventricle is normal size. There is normal left ventricular wall thickness. There is moderate LV systolic dysfunction. EF 35% The mid to distal LV is severely hypokinetic. Septal motion suggesti ve of conduction defect. Transmitral Doppler flow pattern is Grade II-pseudonormal filling dynamics. RIGHT VENTRICLE The right ventricle is normal size. The right ventricular systolic function is normal. There is a pac emaker lead in the right ventricle. There is no vegetation visualized on the pacemaker wire. ATRIA The left atrium size is normal. The right atrium is mildly dilated. A pacemaker is seen in the right atrium consistent with history. The interatrial septum is intact with no evidence for an atrial septa l defect or patent foramen ovale as noted on 2-D or Doppler imaging. AORTIC VALVE The aortic valve is calcified but opens well. Doppler and Color Flow revealed no significant aortic r egurgitation. There is no significant aortic valvular stenosis. MITRAL VALVE The mitral valve is calcified but opens well. There is no evidence of mitral valve prolapse. There is no mitral valve stenosis. Doppler and Color-flow revealed mild mitral regurgitation. TRICUSPID VALVE The tricuspid valve is normal in structure and function. Doppler and Color Flow revealed moderate tri cuspid regurgitation. There is moderate pulmonary hypertension. The PA pressure was estimated at 53 m mHg. There is no tricuspid valve stenosis. PULMONIC VALVE Doppler and Color Flow revealed no pulmonic valvular regurgitation. There is no pulmonic valvular rachel nosis. GREAT VESSELS The aortic root is normal in size. The ascending aorta is normal in size. The IVC was not visualized. PERICARDIAL EFFUSION There is no evidence of significant pericardial effusion. Critical Notification Critical Value: No <Conclusion> The mid to distal LV is severely hypokinetic. Septal motion suggestive of conduction defect. There is a pacemaker lead in the right ventricle. There is no vegetation visualized on the pacemaker wire. Doppler and Color Flow revealed moderate tricuspid regurgitation. There is moderate pulmonary hyperte nsion. The PA pressure was estimated at 53 mmHg. There is moderate LV systolic dysfunction. EF 35% Signed by : Jay Armas, Electronically Approved : 03/04/2018 12:06:33
--- NOTE | 2018-03-04 12:14 | CONS ---
DATE OF CONSULTATION: 03/04/2018 INFECTIOUS DISEASE CONSULTATION PATIENT'S ROOM: ICU 3. REQUESTING PHYSICIAN: Roderick Martin MD. REASON FOR CONSULTATION: Questionable gram-positive bacteremia. Questionable pacemaker infection. HISTORY OF PRESENT ILLNESS: The patient is a pleasant 82-year-old female with history of hypertension, previous left lower extremity foot wound with MSSA and Finegoldia several years ago. Recently on 10/10/2017, she underwent a generator replacement for her pacemaker. For the last 2-3 weeks, she has complained of increasing left chest pain. She denies any trauma to the area. No falls, no scratches. She states that the area just became red and began to drain. She has not been on any antimicrobials. She has been applying triple antibiotic ointment to the area, but on the 03/03/2018, she had some nausea, vomiting, diarrhea and presented to [facility] Room. On arrival, she had a white count of 21.8. Additionally, her creatinine was elevated at 1.7. Chest x-ray was performed, had some small bilateral pleural effusions and some pulmonary edema consistent with mild CHF. She then underwent a CT scan without contrast of the abdomen and pelvis showed no acute abnormalities. She has some wedge fractures that were unchanged from previous, had some interval repair of a right hernia and a small hernia on the left was unchanged. Cultures were obtained. This morning, they were called positive 2/2 for gram-positive cocci in clusters from 1 set. Hence, I have been consulted. From the state is in the intensive care unit, she has just been moved to her chair. She feels weak. She has no gross headaches. No complications passing her urine. PAST MEDICAL HISTORY: Positive for right lower extremity wound. Cultures are positive for MSSA as well as Finegoldia. She has diabetes, hypertension, history of arrhythmia with a pacemaker placement, history of depression. PAST SURGICAL HISTORY: Positive for the pacemaker placement, cholecystectomy, hernia repair, tubal ligation, hysterectomy as well as generator replacement and procedures on her left lower extremity wound including an I and D for osteomyelitis of her left heel. REVIEW OF SYSTEMS: Otherwise negative except for what is mentioned above. ALLERGIES: LISTED AUGMENTIN, FOR WHICH SHE DEVELOPED A RASH. SOCIAL HISTORY: She does have cats at home. No tobacco or alcohol. FAMILY HISTORY: Positive for heart disease. CURRENT MEDICATIONS: She received a dose of Zosyn x 1. She is on heparin, vancomycin, DuoNebs, Norvasc, atenolol, Lasix, insulin, Protonix. Other meds are available and have been reviewed in the chart. PHYSICAL EXAMINATION: VITAL SIGNS: She has been afebrile, temperature 98.4, pulse 69, respirations 17, blood pressure 134/76, satting 97% on room air. CONSTITUTIONAL: She is cooperative. She is in no acute distress. She looks a little tired, but she is sitting in a chair. HEENT: Pupils equal and reactive. She has normal conjunctivae. Oral cavity, pharynx is dry, but clear. NECK: Supple, no JVD. LUNGS: Decreased in the bases. HEART: S1, S2. ABDOMEN: Soft, nontender, nondistended, positive bowel sounds. EXTREMITIES: Without clubbing, cyanosis. She has discoloration of her feet. She has hammertoe on her left foot great toe with a scab on it. SKIN: Warm to touch. Her left chest pacemaker has area of erythema about. There is mild fluctuance. There is a scabbed area. There is no gross drainage now. There is no redness tracking to her neck. NEUROLOGIC: She is nonfocal and appropriate. PSYCHIATRIC: Affect is bit flat. LABORATORY DATA: White count down to 18.1, it was 21.8 on arrival; hemoglobin 10.3, platelets of 364. She had 93 segs and 3 bands on arrival. Creatinine is 1.5, down from 1.7. Her troponin is down to 0.674 after it was 1.025 on arrival. Urine is clean. RADIOLOGY: Reviewed in history of present illness. IMPRESSION: 1. Leukocytosis. 2. Left chest pacemaker infection, recent generator change 10/10/2017. 3. Gram-positive bacteremia, present on admission. 4. Acute kidney injury, better. 5. Cfx-IY-eclicflhj myocardial infarction. 6. 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 7. Hammertoe on the left foot with scabbed. RECOMMENDATIONS: Agree with the vancomycin. We will discontinue Zosyn for now. Follow up labs and cultures. Echo and Doppler have been ordered. She needs wound care evaluation, needs lower extremity Dopplers, may need pacemaker removal. Need to follow up on her toe wounds as they could be a potential source of infection, currently they are seem to be scabbed over though. Thank you for the opportunity to participate in the patient's care. If you have any further questions, please do not hesitate to contact me. ETHEL ABREU MD DR: NOY/yuri JOB#: [id number] / [id number]
[2018-03-04] MEDS ORDERED: LIDO:MAALOX 1:1 20 ML SINGLE DOSE. PO PRN (14:15)
[2018-03-04] MEDS: PANTOPRAZOLE 40 MG TABLET.DR. PO SCH (14:21)
[2018-03-04] MEDS: ATENOLOL 25 MG TABLET. PO SCH (14:25)
[2018-03-04 16:00] VITALS: BP 118/68
--- NOTE | 2018-03-04 16:05 | NUR ---
Wound Care Pt seen for wound care consultation, see wound assessments, pt known from multiple previous admissions. Pt has a Stage III pressure ulcer on her R buttock, wound sloughy, periwound dark red, wound cleaned and redressed with a Hydrocolloid to assist in autolytic debridement and covered with a foam dressing. Pt's L chest wound is healing well, pink with some crusty scab around, area cleaned and redressed with Xeroform gauze and a foam dressing, both recommended changing 2x/week. Pt with no other open wounds, but a large callus on L heel, area covered with a foam dressing for prevention. Pt on R side with pillows, heels floating. Will continue to follow for any possible changes.
[2018-03-04 20:11] VITALS: BP 129/70
[2018-03-04] MEDS: HYDROcodone/APAP 5/325MG 1 TAB TABLET PO PRN (20:16)
[2018-03-04] MEDS: INSULIN GLARGINE 300 UNITS/3 ML INSULN.PEN. SQ SCH (21:09)
--- NOTE | 2018-03-04 22:00 | NUR ---
Nikolai from Transfer Team, , called with fax number for patient info and to explain patient has been excepted but will not be transferred tonight. Spoke to Dr Armas to report patient will be transferred tomorrow instead of tonight. Dr Armas verbalized understanding and confirmed he did speak to Dr Thacker, Cardiology. Explained to patient and patient's family transfer will take place tomorrow. Faxed patient info to Transfer Team at fax #[phone].
[2018-03-05] MEDS: HYDROcodone/APAP 5/325MG 1 TAB TABLET PO PRN ×2 (00:26→04:06)
[2018-03-05 00:36] VITALS: BP 124/58
[2018-03-05 01:12] LABS: HEMOGLOBIN A1C 10.7 % (4.8-5.6)
[2018-03-05 04:01] VITALS: BP 129/73
[2018-03-05 04:49] LABS: CHOLESTEROL/HDL RATIO 3.2
--- NOTE | 2018-03-05 07:18 | PDOC ---
Infectious Disease Note Subjective Subjective Doing ok. Still some pain in shoulder No F/C/S/N/SOA/Rash ROS ROS o/w neg Vital Sign Vital Signs Vital Signs Date Time Temp Pulse Resp B/P (MAP) Pulse Ox O2 Delivery O2 Flow Rate FiO2 03/05/18 05:06 18 96 Room Air 03/05/18 04:01 97.8 64 129/73 (91) 97.8 Physical Exam PHYSICAL EXAM CONSTITUTIONAL: She is cooperative. She is in no acute distress. She looks a little tired, but she is in bed HEENT: Pupils equal and reactive. She has normal conjunctivae. Oral cavity, pharynx is dry, but clear.- dentures NECK: Supple, no JVD. LUNGS: Decreased in the bases. HEART: S1, S2. Pacer with mild erythema/scabbed area and trace fluctuance ABDOMEN: Soft, nontender, nondistended, positive bowel sounds. EXTREMITIES: Without clubbing, cyanosis. She has discoloration of her feet. She has hammertoe on her left foot great toe with a scab on it. SKIN: Warm to touch. No rash NEUROLOGIC: She is nonfocal and appropriate. PSYCHIATRIC: Affect is bit flat. Labs Lab Laboratory Tests Test 03/04/18 12:20 03/04/18 13:24 03/04/18 17:43 03/04/18 20:22 Glucose (Fingerstick) 271 mg/dL (70-99) 114 mg/dL (70-99) 111 mg/dL (70-99) Mixed Venous Blood pH 7.39 Mixed Venous Blood PCO2 39 mmHg Mixed Venous Blood PO2 < 42 mmHg Mixed Venous Blood HCO3 23 mmol/L Mixed Venous Blood Base Excess -2 mmol/L Mixed Venous Blood O2 Saturation 46 % Test 03/05/18 04:00 Triglycerides Level 71 mg/dL (0-150) Cholesterol Level 107 mg/dL (0-200) LDL Cholesterol, Calculated 60 mg/dL (0-100) VLDL Cholesterol, Calculated 14 mg/dL (0-40) Non-HDL Cholesterol Calculated 74 mg/dL (0-129) HDL Cholesterol 33 mg/dL (40-60) Cholesterol/HDL Ratio 3.2 Procalcitonin 1.54 ng/mL (0.00-0.10) Micro Microbiology 03/03/18 Blood Culture - Final, Complete Objective Assessment Leukocytosis Left chest pacemaker infection recent generator change Oct 10, 2017 GPC bacteremia POA INO -better NSTEMI H/o MSSA/MRSA Hammer toe on left foot with scab ? PAD Stage 3 buttock wound per wound care Plan Plan of Care D/w Dr. Armas 03/04 and agree with transfer to for PP extraction as uncertain how extensive infection could be Agree with Vanc for now F/u labs this am/ cults and arterial doppler Appreciate Wound care eval F/u on toe wounds- clean now but could be future source of infection ETHEL ABREU MD Mar 05, 2018 07:18
[2018-03-05 07:29] LABS: BASO % 0 % (0-3); EOS % 0 % (0-3); HEMATOCRIT 31.1 % (36.0-47.0); LYMPH # 1.2 x10^3/uL (1.0-4.8); LYMPH % 9 % (24-48); MEAN CORPUSCULAR HEMOGLOBIN 29 pg (25-35); MEAN CORPUSCULAR HGB CONC 32 g/dL (31-37); MEAN CORPUSCULAR VOLUME 89 fL (79-100); MONO # 0.6 x10^3/uL (0.0-1.1); MONO % 4 % (0-9); NEUT % 87 % (31-73); PLATELET COUNT 327 x10^3/uL (140-400); RED BLOOD COUNT 3.47 x10^6/uL (3.50-5.40); RED CELL DISTRIBUTION WIDTH 14.8 % (11.5-14.5); WHITE BLOOD COUNT 13.9 x10^3/uL (4.0-11.0)
[2018-03-05 07:30] LABS: CALCIUM 8.8 mg/dL (8.5-10.1); CREATININE 1.4 mg/dL (0.6-1.0); GFR 36.2; POTASSIUM 3.9 mmol/L (3.5-5.1)
[2018-03-05 08:00] VITALS: BP 135/71
[2018-03-05] MEDS: INSULIN LISPRO 300 UNITS/3 ML INSULN.PEN. SQ SCH ×2 (08:00)
[2018-03-05] MEDS ORDERED: ASPIRIN ENTERIC COATED 81 MG TABLET.DR. PO SCH (08:00)
--- NOTE | 2018-03-05 08:31 | PDOC ---
PROGRESS NOTES Chief Complaint Chief Complaint Acute vasomotor nephropathy Hyperosmolar not ketotic, hyperglycemia Dysphagia Nausea and vomiting and abd pain Severe malnutrition Hyperkalemia, will correct with fluid Acute on chronic diastolic CHF, cautino with fluid Acute on chronic encephalopathy, metabolic on cognitive declnie Pain and drainage - pacemaker site History of Present Illness History of Present Illness Ms Diaz is an 82-year-old female who presents with complaint of just not feeling well. She complains of pain, but I think it was more nausea and lethargy. In the ER, she reported feeling sick for the last couple of weeks with intermittent nausea and vomiting. She has little PO intake, normal stool, but not much. No chest pain, some dyspnea, marked weakness, and general malaise. She also indicates that she has been having drainage from the site of her pacemaker. 03/04: Overnight was having more difficulty swallowing and left neck pain. GPC positive in clusters. She still has abdominal pain. Carotid doppler - At least 50 % visual narrowing of the left carotid bifurcation which is discrepant from the spectral analysis findings of less than 50 % - CT Abdomen - 1. No acute abnormality of abdomen or pelvis. 2. Small bilateral pleural effusions with small amount of ascites. 3. Interval repair of right inguinal hernia. There is a small fat-containing inguinal hernia on the left, unchanged. 4. Multiple thoracic and lumbar wedge compression fractures, unchanged from prior exam. - Echo - reveals EF 25% without any clear valvular vegetations. Overnight and this morning feeling badly still. She has little appetite. Passing flatus. Feeling SOB, left neck pain still present and chest wall pain. Pacer pocket site still with drainage. Cardiology has contacted [facility] for transfer consideration Assessment/Plan Acute vasomotor nephropathy - nephro consulted, seems in acute CHF, though Hyperosmolar not ketotic, hyperglycemia - sliding scale Dysphagia - will have [facility] evaluation Nausea and vomiting and abd pain - likely from sepsis Severe sepsis - with bacteremia, fluids, antibiotics, ID consulted. Some drainage from pacemaker site, will have CV and woundcare evaluation, may need her pacer assessed with bacteremia and pain at pacer site with drainage Severe malnutrition - will have nutrition to see Hyperkalemia, will correct with fluid. 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 Gram-positive bacteremia, present on admission. [id number] myocardial infarction. 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 Hammertoe on the left foot with scabbed. Discussed case with ID and cardiology - given that she has positive blood cultures, seeding of the leads cannot be ruled out. Vitals Vitals Vital Signs Date Time Temp Pulse Resp B/P (MAP) Pulse Ox O2 Delivery O2 Flow Rate FiO2 03/05/18 05:06 18 96 Room Air 03/05/18 04:01 97.8 64 129/73 (91) 97.8 Physical Exam Physical Exam CONSTITUTIONAL: She is cooperative. She is in no acute distress. She looks a little tired, but she is in bed HEENT: Pupils equal and reactive. She has normal conjunctivae. Oral cavity, pharynx is dry, but clear.- dentures NECK: Supple, no JVD. LUNGS: Decreased in the bases. HEART: S1, S2. Pacer with mild erythema/scabbed area and trace fluctuance ABDOMEN: Soft, nontender, nondistended, positive bowel sounds. EXTREMITIES: Without clubbing, cyanosis. She has discoloration of her feet. She has hammertoe on her left foot great toe with a scab on it. SKIN: Warm to touch. No rash NEUROLOGIC: She is nonfocal and appropriate. PSYCHIATRIC: Affect is bit flat. General: Alert, Oriented X3, Cooperative, No acute distress Heart: Regular rate, Normal S1, Normal S2, Other (2/6 systolic murmur ) Lungs: Crackles, Other Abdomen: No tenderness Extremities: Other (1+ bilateral LE edema ) Skin: No significant lesion Labs LABS Laboratory Tests Test 03/04/18 12:20 03/04/18 13:24 03/04/18 17:43 03/04/18 20:22 Glucose (Fingerstick) 271 mg/dL (70-99) 114 mg/dL (70-99) 111 mg/dL (70-99) Mixed Venous Blood pH 7.39 Mixed Venous Blood PCO2 39 mmHg Mixed Venous Blood PO2 < 42 mmHg Mixed Venous Blood HCO3 23 mmol/L Mixed Venous Blood Base Excess -2 mmol/L Mixed Venous Blood O2 Saturation 46 % Test 03/05/18 04:00 White Blood Count 13.9 x10^3/uL (4.0-11.0) Red Blood Count 3.47 x10^6/uL (3.50-5.40) Hemoglobin 10.0 g/dL (12.0-15.5) Hematocrit 31.1 % (36.0-47.0) Mean Corpuscular Volume 89 fL (79-100) Mean Corpuscular Hemoglobin 29 pg (25-35) Mean Corpuscular Hemoglobin Concent 32 g/dL (31-37) Red Cell Distribution Width 14.8 % (11.5-14.5) Platelet Count 327 x10^3/uL (140-400) Neutrophils (%) (Auto) 87 % (31-73) Lymphocytes (%) (Auto) 9 % (24-48) Monocytes (%) (Auto) 4 % (0-9) Eosinophils (%) (Auto) 0 % (0-3) Basophils (%) (Auto) 0 % (0-3) Neutrophils # (Auto) 12.0 x10^3uL (1.8-7.7) Lymphocytes # (Auto) 1.2 x10^3/uL (1.0-4.8) Monocytes # (Auto) 0.6 x10^3/uL (0.0-1.1) Eosinophils # (Auto) 0.0 x10^3/uL (0.0-0.7) Basophils # (Auto) 0.0 x10^3/uL (0.0-0.2) Sodium Level 133 mmol/L (136-145) Potassium Level 3.9 mmol/L (3.5-5.1) Chloride Level 96 mmol/L (98-107) Carbon Dioxide Level 25 mmol/L (21-32) Anion Gap 12 (6-14) Blood Urea Nitrogen 56 mg/dL (7-20) Creatinine 1.4 mg/dL (0.6-1.0) Estimated GFR (Cockcroft-Gault) 36.2 Glucose Level 105 mg/dL (70-99) Calcium Level 8.8 mg/dL (8.5-10.1) Triglycerides Level 71 mg/dL (0-150) Cholesterol Level 107 mg/dL (0-200) LDL Cholesterol, Calculated 60 mg/dL (0-100) VLDL Cholesterol, Calculated 14 mg/dL (0-40) Non-HDL Cholesterol Calculated 74 mg/dL (0-129) HDL Cholesterol 33 mg/dL (40-60) Cholesterol/HDL Ratio 3.2 Procalcitonin 1.54 ng/mL (0.00-0.10) Assessment and Plan Assessmemt and Plan Problems Medical Problems: (1) Acute kidney injury Status: Acute (2) Congestive heart failure Status: Acute (3) Hyponatremia Status: Acute (4) NSTEMI (non-ST elevated myocardial infarction) Status: Acute (5) Type 2 diabetes mellitus with hyperglycemia Status: Acute Comment Review of Relevant I have reviewed the following items sandeep (where applicable) has been applied. Labs Laboratory Tests Test 03/03/18 11:14 03/03/18 12:20 03/03/18 12:43 03/03/18 16:22 White Blood Count 21.8 x10^3/uL (4.0-11.0) Red Blood Count 3.79 x10^6/uL (3.50-5.40) Hemoglobin 10.9 g/dL (12.0-15.5) Hematocrit 34.2 % (36.0-47.0) Mean Corpuscular Volume 90 fL (79-100) Mean Corpuscular Hemoglobin 29 pg (25-35) Mean Corpuscular Hemoglobin Concent 32 g/dL (31-37) Red Cell Distribution Width 15.3 % (11.5-14.5) Platelet Count 402 x10^3/uL (140-400) Neutrophils (%) (Auto) 95 % (31-73) Lymphocytes (%) (Auto) 2 % (24-48) Monocytes (%) (Auto) 3 % (0-9) Eosinophils (%) (Auto) 0 % (0-3) Basophils (%) (Auto) 0 % (0-3) Neutrophils # (Auto) 20.7 x10^3uL (1.8-7.7) Lymphocytes # (Auto) 0.4 x10^3/uL (1.0-4.8) Monocytes # (Auto) 0.6 x10^3/uL (0.0-1.1) Eosinophils # (Auto) 0.0 x10^3/uL (0.0-0.7) Basophils # (Auto) 0.1 x10^3/uL (0.0-0.2) Segmented Neutrophils % 93 % (35-66) Band Neutrophils % 3 % (0-9) Lymphocytes % 4 % (24-48) Platelet Estimate Adequate (ADEQUATE) Sodium Level 124 mmol/L (136-145) Potassium Level 5.5 mmol/L (3.5-5.1) Chloride Level 93 mmol/L (98-107) Carbon Dioxide Level 21 mmol/L (21-32) Anion Gap 10 (6-14) Blood Urea Nitrogen 64 mg/dL (7-20) Creatinine 1.7 mg/dL (0.6-1.0) Estimated GFR (Cockcroft-Gault) 28.9 BUN/Creatinine Ratio 38 (6-20) Glucose Level 477 mg/dL (70-99) Calcium Level 9.5 mg/dL (8.5-10.1) Total Bilirubin 0.6 mg/dL (0.2-1.0) Aspartate Amino Transf (AST/SGOT) 109 U/L (15-37) Alanine Aminotransferase (ALT/SGPT) 154 U/L (14-59) Alkaline Phosphatase 163 U/L (46-116) Creatine Kinase 180 U/L (26-192) Troponin I Quantitative 1.025 ng/mL (0.000-0.055) OW-Git-L-Type Natriuretic Peptide > 80903 pg/mL (0-449) Total Protein 7.6 g/dL (6.4-8.2) Albumin 2.4 g/dL (3.4-5.0) Albumin/Globulin Ratio 0.5 (1.0-1.7) Lactic Acid Level 2.1 mmol/L (0.4-2.0) Urine Collection Type U cath Urine Color Yellow Urine Clarity Clear Urine pH 5.0 Urine Specific [place] 1.025 Urine Protein 30 mg/dL (NEG-TRACE) Urine Glucose (UA) >=1000 mg/dL (NEG) Urine Ketones (Stick) Trace mg/dL (NEG) Urine Blood Negative (NEG) Urine Nitrite Negative (NEG) Urine Bilirubin Small (NEG) Urine Urobilinogen Dipstick 1.0 mg/dL (0.2 mg/dL) Urine Leukocyte Esterase Negative (NEG) Urine RBC 0 /HPF (0-2) Urine WBC 0 /HPF (0-4) Urine Bacteria 0 /HPF (0-FEW) Glucose (Fingerstick) 316 mg/dL (70-99) Test 03/03/18 17:05 03/03/18 20:50 03/03/18 21:00 03/04/18 04:30 Troponin I Quantitative 0.713 ng/mL (0.000-0.055) 0.674 ng/mL (0.000-0.055) Heparin Anti-Xa Act, Unfractionated 0.15 IU/mL (0.30-0.70) 0.20 IU/mL (0.30-0.70) Glucose (Fingerstick) 223 mg/dL (70-99) White Blood Count 18.1 x10^3/uL (4.0-11.0) Red Blood Count 3.60 x10^6/uL (3.50-5.40) Hemoglobin 10.3 g/dL (12.0-15.5) Hematocrit 32.2 % (36.0-47.0) Mean Corpuscular Volume 89 fL (79-100) Mean Corpuscular Hemoglobin 29 pg (25-35) Mean Corpuscular Hemoglobin Concent 32 g/dL (31-37) Red Cell Distribution Width 14.9 % (11.5-14.5) Platelet Count 364 x10^3/uL (140-400) Sodium Level 129 mmol/L (136-145) Potassium Level 4.5 mmol/L (3.5-5.1) Chloride Level 95 mmol/L (98-107) Carbon Dioxide Level 25 mmol/L (21-32) Anion Gap 9 (6-14) Blood Urea Nitrogen 63 mg/dL (7-20) Creatinine 1.5 mg/dL (0.6-1.0) Estimated GFR (Cockcroft-Gault) 33.4 Glucose Level 243 mg/dL (70-99) Hemoglobin A1c 10.7 % (4.8-5.6) Calcium Level 9.0 mg/dL (8.5-10.1) Magnesium Level 2.1 mg/dL (1.8-2.4) Test 03/04/18 12:20 03/04/18 13:24 03/04/18 17:43 03/04/18 20:22 Glucose (Fingerstick) 271 mg/dL (70-99) 114 mg/dL (70-99) 111 mg/dL (70-99) Mixed Venous Blood pH 7.39 Mixed Venous Blood PCO2 39 mmHg Mixed Venous Blood PO2 < 42 mmHg Mixed Venous Blood HCO3 23 mmol/L Mixed Venous Blood Base Excess -2 mmol/L Mixed Venous Blood O2 Saturation 46 % Test 03/05/18 04:00 White Blood Count 13.9 x10^3/uL (4.0-11.0) Red Blood Count 3.47 x10^6/uL (3.50-5.40) Hemoglobin 10.0 g/dL (12.0-15.5) Hematocrit 31.1 % (36.0-47.0) Mean Corpuscular Volume 89 fL (79-100) Mean Corpuscular Hemoglobin 29 pg (25-35) Mean Corpuscular Hemoglobin Concent 32 g/dL (31-37) Red Cell Distribution Width 14.8 % (11.5-14.5) Platelet Count 327 x10^3/uL (140-400) Neutrophils (%) (Auto) 87 % (31-73) Lymphocytes (%) (Auto) 9 % (24-48) Monocytes (%) (Auto) 4 % (0-9) Eosinophils (%) (Auto) 0 % (0-3) Basophils (%) (Auto) 0 % (0-3) Neutrophils # (Auto) 12.0 x10^3uL (1.8-7.7) Lymphocytes # (Auto) 1.2 x10^3/uL (1.0-4.8) Monocytes # (Auto) 0.6 x10^3/uL (0.0-1.1) Eosinophils # (Auto) 0.0 x10^3/uL (0.0-0.7) Basophils # (Auto) 0.0 x10^3/uL (0.0-0.2) Sodium Level 133 mmol/L (136-145) Potassium Level 3.9 mmol/L (3.5-5.1) Chloride Level 96 mmol/L (98-107) Carbon Dioxide Level 25 mmol/L (21-32) Anion Gap 12 (6-14) Blood Urea Nitrogen 56 mg/dL (7-20) Creatinine 1.4 mg/dL (0.6-1.0) Estimated GFR (Cockcroft-Gault) 36.2 Glucose Level 105 mg/dL (70-99) Calcium Level 8.8 mg/dL (8.5-10.1) Triglycerides Level 71 mg/dL (0-150) Cholesterol Level 107 mg/dL (0-200) LDL Cholesterol, Calculated 60 mg/dL (0-100) VLDL Cholesterol, Calculated 14 mg/dL (0-40) Non-HDL Cholesterol Calculated 74 mg/dL (0-129) HDL Cholesterol 33 mg/dL (40-60) Cholesterol/HDL Ratio 3.2 Procalcitonin 1.54 ng/mL (0.00-0.10) Laboratory Tests Test 03/04/18 12:20 03/04/18 13:24 03/04/18 17:43 03/04/18 20:22 Glucose (Fingerstick) 271 mg/dL (70-99) 114 mg/dL (70-99) 111 mg/dL (70-99) Mixed Venous Blood pH 7.39 Mixed Venous Blood PCO2 39 mmHg Mixed Venous Blood PO2 < 42 mmHg Mixed Venous Blood HCO3 23 mmol/L Mixed Venous Blood Base Excess -2 mmol/L Mixed Venous Blood O2 Saturation 46 % Test 03/05/18 04:00 White Blood Count 13.9 x10^3/uL (4.0-11.0) Red Blood Count 3.47 x10^6/uL (3.50-5.40) Hemoglobin 10.0 g/dL (12.0-15.5) Hematocrit 31.1 % (36.0-47.0) Mean Corpuscular Volume 89 fL (79-100) Mean Corpuscular Hemoglobin 29 pg (25-35) Mean Corpuscular Hemoglobin Concent 32 g/dL (31-37) Red Cell Distribution Width 14.8 % (11.5-14.5) Platelet Count 327 x10^3/uL (140-400) Neutrophils (%) (Auto) 87 % (31-73) Lymphocytes (%) (Auto) 9 % (24-48) Monocytes (%) (Auto) 4 % (0-9) Eosinophils (%) (Auto) 0 % (0-3) Basophils (%) (Auto) 0 % (0-3) Neutrophils # (Auto) 12.0 x10^3uL (1.8-7.7) Lymphocytes # (Auto) 1.2 x10^3/uL (1.0-4.8) Monocytes # (Auto) 0.6 x10^3/uL (0.0-1.1) Eosinophils # (Auto) 0.0 x10^3/uL (0.0-0.7) Basophils # (Auto) 0.0 x10^3/uL (0.0-0.2) Sodium Level 133 mmol/L (136-145) Potassium Level 3.9 mmol/L (3.5-5.1) Chloride Level 96 mmol/L (98-107) Carbon Dioxide Level 25 mmol/L (21-32) Anion Gap 12 (6-14) Blood Urea Nitrogen 56 mg/dL (7-20) Creatinine 1.4 mg/dL (0.6-1.0) Estimated GFR (Cockcroft-Gault) 36.2 Glucose Level 105 mg/dL (70-99) Calcium Level 8.8 mg/dL (8.5-10.1) Triglycerides Level 71 mg/dL (0-150) Cholesterol Level 107 mg/dL (0-200) LDL Cholesterol, Calculated 60 mg/dL (0-100) VLDL Cholesterol, Calculated 14 mg/dL (0-40) Non-HDL Cholesterol Calculated 74 mg/dL (0-129) HDL Cholesterol 33 mg/dL (40-60) Cholesterol/HDL Ratio 3.2 Procalcitonin 1.54 ng/mL (0.00-0.10) Microbiology 03/03/18 Blood Culture - Final, Complete Medications Current Medications Sodium Chloride 1,000 ml @ 1,000 mls/hr Q1H IV Last administered on 03/03/18at 11:15; Start 03/03/18 at 10:52; Stop 03/03/18 at 11:51; Status DC Ondansetron HCl (Zofran) 4 mg STK-MED ONCE .ROUTE ; Start 03/03/18 at 11:53; Stop 03/03/18 at 11:55; Status DC Ondansetron HCl (Zofran) 4 mg 1X ONCE IM ; Start 03/03/18 at 12:15; Stop at 12:16; Status DC Ondansetron HCl (Zofran) 4 mg 1X ONCE IV Last administered on 03/03/18at 12:49 ; Start 03/03/18 at 13:00; Stop 03/03/18 at 13:01; Status DC Insulin Human Regular (HumuLIN R VIAL) 10 unit 1X ONCE IV Last administered on 03/03/18at 13:59; Start 03/03/18 at 13:45; Stop 03/03/18 at 13:46; Status DC Furosemide (Lasix) 40 mg 1X ONCE IVP Last administered on 03/03/18at 13:57; Start 03/03/18 at 13:45; Stop 03/03/18 at 13:46; Status DC Vancomycin HCl 250 ml @ 250 mls/hr 1X ONCE IV Last administered on 03/03/18at 14:57; Start 03/03/18 at 14:00; Stop 03/03/18 at 14:59; Status DC Piperacillin Sod/ Tazobactam Sod 3.375 gm/Sodium Chloride 50 ml @ 100 mls/hr 1X ONCE IV Last administered on 03/03/18at 14:03; Start 03/03/18 at 14:00; Stop 03/03/18 at 14:29; Status DC Ondansetron HCl (Zofran) 4 mg PRN Q8HRS PRN IV NAUSEA/VOMITING; Start 03/03/18 at 14:15; Stop 03/03/18 at 17:14; Status DC Heparin Sodium (Porcine) (Heparin Sodium) 4,000 unit 1X ONCE IV Last administered on 03/03/18at 14:58; Start 03/03/18 at 14:15; Stop 03/03/18 at 14:16 ; Status DC Heparin Sodium/ Dextrose 500 ml @ 17.28 mls/ hr CONT PRN IV SEE I/O RECORD Last administered on 03/03/18at 15:00; Start 03/03/18 at 14:15; Stop 03/04/18 at 15:37; Status DC Heparin Sodium (Porcine) (Heparin Sodium) 1,800 unit PRN Q6HRS PRN IV FOR UFH LEVEL LESS THAN 0.2 Last administered on 03/03/18at 22:30; Start 03/03/18 at 14: 15; Stop 03/04/18 at 15:37; Status DC Insulin Human Lispro (HumaLOG) 0-7 UNITS TIDWMEALS SQ Last administered on 03/04at 12:26; Start 03/03/18 at 17:00 Dextrose (Dextrose 50%-Water Syringe) 12.5 gm PRN Q15MIN PRN IV SEE COMMENTS; Start 03/03/18 at 15:45 Albuterol Sulfate (Ventolin Neb Soln) 2.5 mg PRN Q6HRS PRN INH SHORTNESS OF BREATH; Start 03/03/18 at 15:45 Apixaban (Eliquis) 2.5 mg BID PO ; Start 03/03/18 at 21:00; Status UNV Acetaminophen/ Hydrocodone Bitart (Lortab 5/325) 1 tab PRN Q4HRS PRN PO moderate pain Last administered on 03/05/18at 04:06; Start 03/03/18 at 15:45 Amlodipine Besylate (Norvasc) 2.5 mg DAILY PO ; Start 03/03/18 at 16:30; Stop at 17:16; Status DC Atenolol (Tenormin) 25 mg DAILY PO Last administered on 03/04/18at 14:25; Start 03/03/18 at 16:30 Insulin Glargine (Lantus) 12 units QHS SQ Last administered on 03/04/18at 21:09 ; Start 03/03/18 at 21:00 Insulin Human Lispro (HumaLOG) 8 units TIDWMEALS SQ Last administered on at 12:26; Start 03/03/18 at 17:00 Zolpidem Tartrate (Ambien) 5 mg PRN QHS PRN PO INSOMNIA Last administered on at 21:01; Start 03/03/18 at 17:15 Ondansetron HCl (Zofran) 4 mg PRN Q6HRS PRN IV NAUSEA/VOMITING; Start 03/03/18 at 17:15 Vancomycin HCl (Vanco Per Pharmacy) 1 each PRN DAILY PRN MC SEE COMMENTS Last administered on 03/04/18at 11:03; Start 03/04/18 at 09:15 Pantoprazole Sodium (Protonix) 40 mg DAILYAC PO Last administered on 03/04/18at 14:21; Start 03/04/18 at 11:30 Vancomycin HCl 1.25 gm/Sodium Chloride 250 ml @ 167 mls/hr Q24H IV Last administered on 03/04/18at 14:21; Start 03/04/18 at 11:00 Vancomycin HCl (Vancomycin Trough Level) 1 each 1X ONCE MC ; Start 03/06/18 at 10:30; Stop 03/06/18 at 10:31 Multi-Ingredient Mouthwash/Gargle (Gi Cocktail) 20 ml PRN QID PRN PO GI SYMPTOMS; Start 03/04/18 at 14:15 Aspirin (Ecotrin) 81 mg DAILYWBKFT PO ; Start 03/05/18 at 08:00 Active Scripts Active Glipizide Er (Glipizide) 5 Mg Tab.er.24 10 Mg PO BIDWMEALS 30 Days Proair Hfa Inhaler (Albuterol Sulfate) 8.5 Gm Hfa.aer.ad 1 Puff INH PRN Q6HRS PRN Atenolol 25 Mg Tablet 25 Mg PO DAILY Reported Hydrochlorothiazide Tablet (Hydrochlorothiazide) 25 Mg Tablet 1 Tab PO DAILY Vitals/I & O Vital Sign - Last 24 Hours 03/04/18 03/04/18 03/04/18 03/04/18 12:00 14:25 16:00 20:00 Temp 98.2 98.7 98.2 98.7 Pulse 69 74 63 Resp 16 18 B/P (MAP) 116/77 (90) 116/77 118/68 (85) Pulse Ox 95 97 O2 Delivery Room Air Room Air Room Air 03/04/18 03/04/18 03/05/18 03/05/18 20:11 20:16 00:26 00:36 Temp 97.5 98.1 97.5 98.1 Pulse 70 68 Resp 18 18 18 18 B/P (MAP) 129/70 (89) 124/58 (80) Pulse Ox 96 96 96 97 O2 Delivery Room Air Room Air Room Air Room Air 03/05/18 03/05/18 03/05/18 04:01 04:06 05:06 Temp 97.8 97.8 Pulse 64 Resp 18 18 18 B/P (MAP) 129/73 (91) Pulse Ox 96 96 96 O2 Delivery Room Air Room Air Room Air Intake and Output 03/04/18 03/04/18 03/05/18 15:01 23:01 07:01 Intake Total 120 ml 60 ml Output Total 500 ml Balance 120 ml -440 ml KRUNAL PARDO MD Mar 05, 2018 08:31
--- NOTE | 2018-03-05 08:34 | RAD ---
BILATERAL LOWER EXTREMITY DUPLEX ARTERY ULTRASOUND Indication: PAD, HAMMER TOE Comparison: None. Procedure: Real-time grayscale, color flow Doppler, and Doppler spectral waveform analysis of the arterial system of the lower extremity is performed. Findings: There is scattered plaque bilaterally. There are biphasic waveforms throughout the right lower extremity. No focal elevated peak systolic velocity is seen. The left common femoral artery waveform is triphasic. Waveforms in the left lower extremity are otherwise biphasic. The peroneal artery is not identified and may be small caliber or occluded. Peak systolic velocity in the dorsalis pedis artery is 158 cm/s which suggests a less than 50% stenosis. Otherwise no focal elevated peak systolic velocity is identified. IMPRESSION: 1. Left peroneal artery is not identified and may be small caliber or occluded. 2. Mildly elevated peak systolic velocity in the left dorsalis pedis artery suggests a less than 50% stenosis. 3. Biphasic waveforms are noted throughout both lower extremities. Electronically signed by: cJ Villarreal MD (03/05/2018 8:29 AM) [id number]
[2018-03-05 09:20] VITALS: BP 135/71
[2018-03-05] MEDS: PANTOPRAZOLE 40 MG TABLET.DR. PO SCH (09:20)
[2018-03-05] MEDS: ATENOLOL 25 MG TABLET. PO SCH (09:20)
[2018-03-05] MEDS: VANCOMYCIN PER PHARMACY MC PRN (09:56)
--- NOTE | 2018-03-05 10:42 | PDOC ---
SUBJECTIVE ROS c/o SOB, left neck and chest wall pain still present OBJECTIVE Vital Signs Vital Signs Date Time Temp Pulse Resp B/P (MAP) Pulse Ox O2 Delivery O2 Flow Rate FiO2 03/05/18 09:20 70 135/71 03/05/18 08:00 Room Air 03/05/18 08:00 98.3 18 97 98.3 I & 0 Intake and Output 03/05/18 07:01 Intake Total 180 ml Output Total 500 ml Balance -320 ml Intake Oral 180 ml Output Urine Total 500 ml # Voids 2 PHYSICAL EXAM Physical Exam General:No distress HEENT: PERRLA, OM dry neck Supple Lungs: Clear to auscultation Heart: S1S2 Abdomen: Normal bowel sounds, Soft Extremities: trace LE edema, changes of CVI+ Neuro: Grossly Normal, lethargic Skin- No Rash Chest - Pacemaker Lt - No Verduzco , No CVA or SP tenderness DIAGNOSIS/ASSESSMENT Assessment & Plan INO - suspect vasomotor /Sepsis Baseline ckd+ , UA unremarkable except Glucosuria + Ct scan Kidneys/Bladder Unremarkable Cr Improved, E-lytes stable CKD stage3- Baseline Cr 1.2-1.4 Hyponatremia- Pre-renal , Cardiorenal Mild, Nausea/ vomiting / abd pain GI following Sepsis - Leukocytosis, pacemaker infection On Abx, ID and card following Transferring to [facility] for PP extraction Severe malnutrition Acute on chronic diastolic CHF CxR reported mild congestion ,currently on RA COMMENT/RELEVANT DATA Meds Current Medications Medications (Trade) Dose Ordered Sig/Leonel Start Time Stop Time Status Last Admin Dose Admin Acetaminophen/ Hydrocodone Bitart (Lortab 5/325) 1 tab PRN Q4HRS PRN 03/03/18 15:45 03/05/18 04:06 1 TAB Albuterol Sulfate (Ventolin Neb Soln) 2.5 mg PRN Q6HRS PRN 03/03/18 15:45 Amlodipine Besylate (Norvasc) 2.5 mg DAILY 03/03/18 16:30 03/03/18 17:16 DC Apixaban (Eliquis) 2.5 mg BID 03/03/18 21:00 UNV Aspirin (Ecotrin) 81 mg DAILYWBKFT 03/05/18 08:00 03/05/18 09:20 81 MG Atenolol (Tenormin) 25 mg DAILY 03/03/18 16:30 03/05/18 09:20 25 MG Dextrose (Dextrose 50%-Water Syringe) 12.5 gm PRN Q15MIN PRN 03/03/18 15:45 Furosemide (Lasix) 40 mg 1X ONCE 03/03/18 13:45 03/03/18 13:46 DC 03/03/18 13:57 40 MG Heparin Sodium (Porcine) (Heparin Sodium) 1,800 unit PRN Q6HRS PRN 03/03/18 14:15 03/04/18 15:37 DC 03/03/18 22:30 1,800 UNIT Heparin Sodium/ Dextrose 500 ml @ 17.28 mls/ hr CONT PRN 03/03/18 14:15 03/04/18 15:37 DC 03/03/18 15:00 17.28 MLS/HR Insulin Glargine (Lantus) 12 units QHS 03/03/18 21:00 03/04/18 21:09 12 UNITS Insulin Human Lispro (HumaLOG) 8 units TIDWMEALS 03/03/18 17:00 03/04/18 12:26 8 UNITS Insulin Human Regular (HumuLIN R VIAL) 10 unit 1X ONCE 03/03/18 13:45 03/03/18 13:46 DC 03/03/18 13:59 10 UNIT Multi-Ingredient Mouthwash/Gargle (Gi Cocktail) 20 ml PRN QID PRN 03/04/18 14:15 Ondansetron HCl (Zofran) 4 mg PRN Q6HRS PRN 03/03/18 17:15 Pantoprazole Sodium (Protonix) 40 mg DAILYAC 03/04/18 11:30 03/05/18 09:20 40 MG Piperacillin Sod/ Tazobactam Sod 3.375 gm/Sodium Chloride 50 ml @ 100 mls/hr 1X ONCE 03/03/18 14:00 03/03/18 14:29 DC 03/03/18 14:03 100 MLS/HR Sodium Chloride 1,000 ml @ 1,000 mls/hr Q1H 03/03/18 10:52 03/03/18 11:51 DC 03/03/18 11:15 1,000 MLS/HR Vancomycin HCl (Vanco Per Pharmacy) 1 each PRN DAILY PRN 03/04/18 09:15 03/05/18 09:56 1 EACH Vancomycin HCl (Vancomycin Trough Level) 1 each 1X ONCE 03/06/18 13:30 03/06/18 13:31 Vancomycin HCl 1.25 gm/Sodium Chloride 250 ml @ 167 mls/hr Q24H 03/04/18 11:00 03/04/18 14:21 167 MLS/HR Zolpidem Tartrate (Ambien) 5 mg PRN QHS PRN 03/03/18 17:15 03/03/18 21:01 5 MG Lab Laboratory Tests Test 03/04/18 12:20 03/04/18 13:24 03/04/18 17:43 03/04/18 20:22 Glucose (Fingerstick) 271 mg/dL (70-99) 114 mg/dL (70-99) 111 mg/dL (70-99) Mixed Venous Blood pH 7.39 Mixed Venous Blood PCO2 39 mmHg Mixed Venous Blood PO2 < 42 mmHg Mixed Venous Blood HCO3 23 mmol/L Mixed Venous Blood Base Excess -2 mmol/L Mixed Venous Blood O2 Saturation 46 % Test 03/05/18 04:00 White Blood Count 13.9 x10^3/uL (4.0-11.0) Red Blood Count 3.47 x10^6/uL (3.50-5.40) Hemoglobin 10.0 g/dL (12.0-15.5) Hematocrit 31.1 % (36.0-47.0) Mean Corpuscular Volume 89 fL (79-100) Mean Corpuscular Hemoglobin 29 pg (25-35) Mean Corpuscular Hemoglobin Concent 32 g/dL (31-37) Red Cell Distribution Width 14.8 % (11.5-14.5) Platelet Count 327 x10^3/uL (140-400) Neutrophils (%) (Auto) 87 % (31-73) Lymphocytes (%) (Auto) 9 % (24-48) Monocytes (%) (Auto) 4 % (0-9) Eosinophils (%) (Auto) 0 % (0-3) Basophils (%) (Auto) 0 % (0-3) Neutrophils # (Auto) 12.0 x10^3uL (1.8-7.7) Lymphocytes # (Auto) 1.2 x10^3/uL (1.0-4.8) Monocytes # (Auto) 0.6 x10^3/uL (0.0-1.1) Eosinophils # (Auto) 0.0 x10^3/uL (0.0-0.7) Basophils # (Auto) 0.0 x10^3/uL (0.0-0.2) Sodium Level 133 mmol/L (136-145) Potassium Level 3.9 mmol/L (3.5-5.1) Chloride Level 96 mmol/L (98-107) Carbon Dioxide Level 25 mmol/L (21-32) Anion Gap 12 (6-14) Blood Urea Nitrogen 56 mg/dL (7-20) Creatinine 1.4 mg/dL (0.6-1.0) Estimated GFR (Cockcroft-Gault) 36.2 Glucose Level 105 mg/dL (70-99) Calcium Level 8.8 mg/dL (8.5-10.1) Triglycerides Level 71 mg/dL (0-150) Cholesterol Level 107 mg/dL (0-200) LDL Cholesterol, Calculated 60 mg/dL (0-100) VLDL Cholesterol, Calculated 14 mg/dL (0-40) Non-HDL Cholesterol Calculated 74 mg/dL (0-129) HDL Cholesterol 33 mg/dL (40-60) Cholesterol/HDL Ratio 3.2 Procalcitonin 1.54 ng/mL (0.00-0.10) Results All relevant outside records, renal labs, imaging studies, telemetry/EKG's were reviewed. RADHA HILARIO MD Mar 05, 2018 10:42
--- NOTE | 2018-03-05 11:19 | PDOC ---
Subjective: Subjective: Not feeling any better - some nausea, still hurts to swallow, frustrated she's not sure how to use her phone. Objective: Objective: Transferring to for pacemaker issues. GI cocktail not given. Vital Signs: Vital Signs Date Time Temp Pulse Resp B/P (MAP) Pulse Ox O2 Delivery O2 Flow Rate FiO2 03/05/18 09:20 70 135/71 03/05/18 08:00 Room Air 03/05/18 08:00 98.3 18 97 98.3 Labs: Laboratory Tests Test 03/04/18 12:20 03/04/18 17:43 03/04/18 20:22 Glucose (Fingerstick) 271 mg/dL (70-99) 114 mg/dL (70-99) 111 mg/dL (70-99) Imaging: Duplex LE IMPRESSION: 1. Left peroneal artery is not identified and may be small caliber or occluded. 2. Mildly elevated peak systolic velocity in the left dorsalis pedis artery suggests a less than 50% stenosis. 3. Biphasic waveforms are noted throughout both lower extremities. Echo <Conclusion> The mid to distal LV is severely hypokinetic. Septal motion suggestive of conduction defect. There is a pacemaker lead in the right ventricle. There is no vegetation visualized on the pacemaker wire. Doppler and Color Flow revealed moderate tricuspid regurgitation. There is moderate pulmonary hypertension. The PA pressure was estimated at 53 mmHg. There is moderate LV systolic dysfunction. EF 35% Carotid Doppler Impression: 1. At least 50 % visual narrowing of the left carotid bifurcation which is discrepant from the spectral analysis findings of less than 50 %. If clinically indicated, CTA neck could be performed for further evaluation. 2. No visual or spectral analysis evidence of clinically significant right internal carotid artery stenosis. Bedside Swallow Eval: No oropharyngeal dysphagia noted w/ limited trials of puree and thin liquid. Pt 's c/o pain on L side of neck was persistent throughout and significantly. increases during swallowing & speaking and prevents consistent PO intake. Occasional gagging noted. Swelling noted on L side of neck at site of pain. Anticipate safe & efficient PO intake w/ resolution of L neck pain. Pt denies any prior swallowing difficulty. Full [employer] MANAGEMENT ADVISER BSE report to follow. Recommendations: Diet as kwesi. per pt, currently clear liquids. Continued medical f/u to address left neck pain & edema. No add'l [employer]ARM MANAGEMENT ADVISER f/u indicated at this time. Pls reconsult if needs change. PE: GEN: NAD, up to chair LUNGS: room air HEART: RRR ABD: soft, non-tender NEURO/PSYCH: A & O �3, near tears A/P: Left chest pacemaker infection, gram + cocci bacteremia CHF, INO Odynophagia -- Attempted to help her with her phone. Plans to transfer to . GABRIELLE FULTON Mar 05, 2018 11:19
--- NOTE | 2018-03-05 11:22 | PDOC3 ---
Discharge Summary Visit Information Date of Admission: Mar 03, 2018 Date of Discharge: Mar 05, 2018 Final Diagnosis Problems Medical Problems: (1) Acute kidney injury Status: Acute (2) Congestive heart failure Status: Acute (3) Hyponatremia Status: Acute (4) NSTEMI (non-ST elevated myocardial infarction) Status: Acute (5) Type 2 diabetes mellitus with hyperglycemia Status: Acute Brief Hospital Course Allergies Allergies Coded Allergies Type Severity Reaction Last Updated Verified I S O L A T I O N *CONTACT* Allergy Unknown 11/07/17 Yes amoxicillin Adverse Reaction Mild Rash 04/12/16 Yes clavulanic acid Adverse Reaction Mild Rash 04/12/16 Yes Vital Signs Vital Signs Date Time Temp Pulse Resp B/P (MAP) Pulse Ox O2 Delivery O2 Flow Rate FiO2 03/05/18 09:20 70 135/71 03/05/18 08:00 Room Air 03/05/18 08:00 98.3 18 97 98.3 Lab Results Laboratory Tests Test 03/03/18 12:20 03/03/18 12:43 03/03/18 16:22 03/03/18 17:05 Lactic Acid Level 2.1 mmol/L (0.4-2.0) Urine Collection Type U cath Urine Color Yellow Urine Clarity Clear Urine pH 5.0 Urine Specific [place] 1.025 Urine Protein 30 mg/dL (NEG-TRACE) Urine Glucose (UA) >=1000 mg/dL (NEG) Urine Ketones (Stick) Trace mg/dL (NEG) Urine Blood Negative (NEG) Urine Nitrite Negative (NEG) Urine Bilirubin Small (NEG) Urine Urobilinogen Dipstick 1.0 mg/dL (0.2 mg/dL) Urine Leukocyte Esterase Negative (NEG) Urine RBC 0 /HPF (0-2) Urine WBC 0 /HPF (0-4) Urine Bacteria 0 /HPF (0-FEW) Glucose (Fingerstick) 316 mg/dL (70-99) Troponin I Quantitative 0.713 ng/mL (0.000-0.055) Test 03/03/18 20:50 03/03/18 21:00 03/04/18 04:30 03/04/18 12:20 Heparin Anti-Xa Act, Unfractionated 0.15 IU/mL (0.30-0.70) 0.20 IU/mL (0.30-0.70) Glucose (Fingerstick) 223 mg/dL (70-99) 271 mg/dL (70-99) White Blood Count 18.1 x10^3/uL (4.0-11.0) Red Blood Count 3.60 x10^6/uL (3.50-5.40) Hemoglobin 10.3 g/dL (12.0-15.5) Hematocrit 32.2 % (36.0-47.0) Mean Corpuscular Volume 89 fL (79-100) Mean Corpuscular Hemoglobin 29 pg (25-35) Mean Corpuscular Hemoglobin Concent 32 g/dL (31-37) Red Cell Distribution Width 14.9 % (11.5-14.5) Platelet Count 364 x10^3/uL (140-400) Sodium Level 129 mmol/L (136-145) Potassium Level 4.5 mmol/L (3.5-5.1) Chloride Level 95 mmol/L (98-107) Carbon Dioxide Level 25 mmol/L (21-32) Anion Gap 9 (6-14) Blood Urea Nitrogen 63 mg/dL (7-20) Creatinine 1.5 mg/dL (0.6-1.0) Estimated GFR (Cockcroft-Gault) 33.4 Glucose Level 243 mg/dL (70-99) Hemoglobin A1c 10.7 % (4.8-5.6) Calcium Level 9.0 mg/dL (8.5-10.1) Magnesium Level 2.1 mg/dL (1.8-2.4) Troponin I Quantitative 0.674 ng/mL (0.000-0.055) Test 03/04/18 13:24 03/04/18 17:43 03/04/18 20:22 03/05/18 04:00 Mixed Venous Blood pH 7.39 Mixed Venous Blood PCO2 39 mmHg Mixed Venous Blood PO2 < 42 mmHg Mixed Venous Blood HCO3 23 mmol/L Mixed Venous Blood Base Excess -2 mmol/L Mixed Venous Blood O2 Saturation 46 % Glucose (Fingerstick) 114 mg/dL (70-99) 111 mg/dL (70-99) White Blood Count 13.9 x10^3/uL (4.0-11.0) Red Blood Count 3.47 x10^6/uL (3.50-5.40) Hemoglobin 10.0 g/dL (12.0-15.5) Hematocrit 31.1 % (36.0-47.0) Mean Corpuscular Volume 89 fL (79-100) Mean Corpuscular Hemoglobin 29 pg (25-35) Mean Corpuscular Hemoglobin Concent 32 g/dL (31-37) Red Cell Distribution Width 14.8 % (11.5-14.5) Platelet Count 327 x10^3/uL (140-400) Neutrophils (%) (Auto) 87 % (31-73) Lymphocytes (%) (Auto) 9 % (24-48) Monocytes (%) (Auto) 4 % (0-9) Eosinophils (%) (Auto) 0 % (0-3) Basophils (%) (Auto) 0 % (0-3) Neutrophils # (Auto) 12.0 x10^3uL (1.8-7.7) Lymphocytes # (Auto) 1.2 x10^3/uL (1.0-4.8) Monocytes # (Auto) 0.6 x10^3/uL (0.0-1.1) Eosinophils # (Auto) 0.0 x10^3/uL (0.0-0.7) Basophils # (Auto) 0.0 x10^3/uL (0.0-0.2) Sodium Level 133 mmol/L (136-145) Potassium Level 3.9 mmol/L (3.5-5.1) Chloride Level 96 mmol/L (98-107) Carbon Dioxide Level 25 mmol/L (21-32) Anion Gap 12 (6-14) Blood Urea Nitrogen 56 mg/dL (7-20) Creatinine 1.4 mg/dL (0.6-1.0) Estimated GFR (Cockcroft-Gault) 36.2 Glucose Level 105 mg/dL (70-99) Calcium Level 8.8 mg/dL (8.5-10.1) Triglycerides Level 71 mg/dL (0-150) Cholesterol Level 107 mg/dL (0-200) LDL Cholesterol, Calculated 60 mg/dL (0-100) VLDL Cholesterol, Calculated 14 mg/dL (0-40) Non-HDL Cholesterol Calculated 74 mg/dL (0-129) HDL Cholesterol 33 mg/dL (40-60) Cholesterol/HDL Ratio 3.2 Procalcitonin 1.54 ng/mL (0.00-0.10) Laboratory Tests Test 03/04/18 12:20 03/04/18 13:24 03/04/18 17:43 03/04/18 20:22 Glucose (Fingerstick) 271 mg/dL (70-99) 114 mg/dL (70-99) 111 mg/dL (70-99) Mixed Venous Blood pH 7.39 Mixed Venous Blood PCO2 39 mmHg Mixed Venous Blood PO2 < 42 mmHg Mixed Venous Blood HCO3 23 mmol/L Mixed Venous Blood Base Excess -2 mmol/L Mixed Venous Blood O2 Saturation 46 % Test 03/05/18 04:00 White Blood Count 13.9 x10^3/uL (4.0-11.0) Red Blood Count 3.47 x10^6/uL (3.50-5.40) Hemoglobin 10.0 g/dL (12.0-15.5) Hematocrit 31.1 % (36.0-47.0) Mean Corpuscular Volume 89 fL (79-100) Mean Corpuscular Hemoglobin 29 pg (25-35) Mean Corpuscular Hemoglobin Concent 32 g/dL (31-37) Red Cell Distribution Width 14.8 % (11.5-14.5) Platelet Count 327 x10^3/uL (140-400) Neutrophils (%) (Auto) 87 % (31-73) Lymphocytes (%) (Auto) 9 % (24-48) Monocytes (%) (Auto) 4 % (0-9) Eosinophils (%) (Auto) 0 % (0-3) Basophils (%) (Auto) 0 % (0-3) Neutrophils # (Auto) 12.0 x10^3uL (1.8-7.7) Lymphocytes # (Auto) 1.2 x10^3/uL (1.0-4.8) Monocytes # (Auto) 0.6 x10^3/uL (0.0-1.1) Eosinophils # (Auto) 0.0 x10^3/uL (0.0-0.7) Basophils # (Auto) 0.0 x10^3/uL (0.0-0.2) Sodium Level 133 mmol/L (136-145) Potassium Level 3.9 mmol/L (3.5-5.1) Chloride Level 96 mmol/L (98-107) Carbon Dioxide Level 25 mmol/L (21-32) Anion Gap 12 (6-14) Blood Urea Nitrogen 56 mg/dL (7-20) Creatinine 1.4 mg/dL (0.6-1.0) Estimated GFR (Cockcroft-Gault) 36.2 Glucose Level 105 mg/dL (70-99) Calcium Level 8.8 mg/dL (8.5-10.1) Triglycerides Level 71 mg/dL (0-150) Cholesterol Level 107 mg/dL (0-200) LDL Cholesterol, Calculated 60 mg/dL (0-100) VLDL Cholesterol, Calculated 14 mg/dL (0-40) Non-HDL Cholesterol Calculated 74 mg/dL (0-129) HDL Cholesterol 33 mg/dL (40-60) Cholesterol/HDL Ratio 3.2 Procalcitonin 1.54 ng/mL (0.00-0.10) Brief Hospital Course Ms Diaz is an 82-year-old female who presents with complaint of just not feeling well. She complains of pain at pacer site. In the ER, she reported feeling sick for the last couple of weeks with intermittent nausea and vomiting with occasional abdominal pain She has little PO intake, normal stool, but not much. No chest pain, some dyspnea, marked weakness, and general malaise. She also indicates that she has been having drainage from the site of her pacemaker. 03/04: Overnight was having more difficulty swallowing and left neck pain. GPC positive in clusters. She still has abdominal pain. Carotid doppler - At least 50 % visual narrowing of the left carotid bifurcation which is discrepant from the spectral analysis findings of less than 50 % - CT Abdomen - 1. No acute abnormality of abdomen or pelvis. 2. Small bilateral pleural effusions with small amount of ascites. 3. Interval repair of right inguinal hernia. There is a small fat-containing inguinal hernia on the left, unchanged. 4. Multiple thoracic and lumbar wedge compression fractures, unchanged from prior exam. - Echo - reveals EF 25% without any clear valvular vegetations. Overnight and this morning feeling badly still. She has little appetite. Passing flatus. Feeling SOB, left neck pain still present and chest wall pain. Pacer pocket site still with drainage. Cardiology has contacted [facility] for transfer consideration. Have backed off antibiotics to vancomycin monotherapy after d/w infectious diseases. Assessment/Plan Acute vasomotor nephropathy - nephro consulted, seems in acute CHF, though Hyperosmolar not ketotic, hyperglycemia - sliding scale Dysphagia - will have [employer]YW[employer]IPPER evaluation Nausea and vomiting and abd pain - likely from sepsis Severe sepsis - with bacteremia, fluids, antibiotics, ID consulted. Some drainage from pacemaker site, will have CV and woundcare evaluation, needs her pacer assessed with bacteremia and pain at pacer site with drainage Severe malnutrition - will have nutrition to see Hyperkalemia, will correct with fluid. 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 Gram-positive bacteremia, present on admission. [id number] myocardial infarction. 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 Hammertoe on the left foot with scabbed. Discussed case with ID and cardiology - given that she has positive blood cultures, seeding of the leads cannot be ruled out. Dr. Armas from Cardiology has discussed with Dr. Thacker at [facility] for facility transfer as we cannot accommodate pacemaker lead removal. Discharge Information Condition at Discharge: Stable Follow Up: Weeks (2) Disposition/Orders: D/C to Another Facility ([facility]) Scheduled Aspirin (Aspirin Ec) 81 Mg Tablet., 81 MG PO DAILYWBKFT for CAD for 30 Days, # 30 Prescribed by: KRUNAL PARDO MD on 03/05/18 1126 Atenolol (Atenolol) 25 Mg Tablet, 25 MG PO DAILY, #30 Ref 1 Prescribed by: SANJIV DAVIS on 08/16/15 0920 Last Taken: Unknown Dose on 03/02/18 0800 Last Action: Last Taken Edited on 03/03/18 1631 by HUBER LINO Insulin Glargine,Hum.rec.anlog (Lantus Solostar) 100 Unit/1 Ml Insuln.pen, 12 UNITS SQ QHS for DM for 30 Days, #30 Prescribed by: KRUNAL PARDO MD on 03/05/18 1126 Insulin Lispro (Humalog) 100 Unit/1 Ml Insuln.pen, 8 UNITS SQ TIDWMEALS for DM for 30 Days, #30 Prescribed by: KRUNAL PARDO MD on 03/05/18 1126 Insulin Lispro (Humalog) 100 Unit/1 Ml Insuln.pen, 0 UNITS SQ TIDWMEALS for DM for 30 Days, #30 Prescribed by: KRUNAL PARDO MD on 03/05/18 1126 Vancomycin Hcl (Vancomycin Hcl) 1 Gm Vial, 1 EACH MC 1X for pacer infection for 21 Days, #21 Prescribed by: KRUNAL PARDO MD on 03/05/18 1126 [Pantoprazole] 40 MG TABLET.DR, 40 MG PO DAILYAC Prescribed by: KRUNAL PARDO MD on 03/05/18 1126 Scheduled PRN Albuterol Sulfate (Proair Hfa Inhaler) 8.5 Gm Hfa.aer.ad, 1 PUFF INH PRN Q6HRS PRN for SHORTNESS OF BREATH, #1 Ref 0 Prescribed by: SILVER BLAKELY MD on 08/29/15 1108 Last Taken: Unknown Dose on Unknown Date & Time Last Action: Last Taken Edited on 03/03/18 163 by HUBER LINO Hydrocodone Bit/Acetaminophen (Hydrocodone-Apap 5-325 ) 1 Tab Tablet, 1 TAB PO PRN Q4HRS PRN for moderate pain for 6 Days, #18 Prescribed by: KRUNAL PARDO MD on 03/05/18 1126 Ondansetron Hcl/Pf (Ondansetron Hcl 4 Mg/2 Ml Vial) 4 Mg/2 Ml Vial, 4 MG IV PRN Q6HRS PRN for NAUSEA/VOMITING for 30 Days, #30 Prescribed by: KRUNAL PARDO MD on 03/05/18 1126 Discontinued Medications Glipizide (Glipizide Er) 5 Mg Tab.er.24, 10 MG PO BIDWMEALS for 30 Days Prescribed by: SILVER BLAKELY MD on 08/29/15 1108 Last Taken: Unknown Dose on 03/02/18 1700 Last Action: Last Taken Edited on 03/03/18 1631 by HUBER LINO Hydrochlorothiazide (Hydrochlorothiazide Tablet ) 25 Mg Tablet, 1 TAB PO DAILY for htn, #30 Ref 5 (Reported) Entered as Reported by: CATARINA MONTGOMERY on 08/12/15 1425 Last Taken: Unknown Dose on 03/02/18 0800 Last Action: Last Taken Edited on 03/03/18 1631 by KRUNAL BENTLEY MD Mar 05, 2018 11:22
[2018-03-05] MEDS ORDERED: HYDR-2761 PO (11:26)
[2018-03-05] MEDS ORDERED: INSU100I13 SQ (11:26)
[2018-03-05] MEDS ORDERED: ONDA4VIA7 IV (11:26)
[2018-03-05] MEDS ORDERED: VANC1VIA3 MC (11:26)
[2018-03-05] MEDS ORDERED: INSU100I11 SQ (11:26)
[2018-03-05] MEDS ORDERED: Pantoprazole PO (11:26)
[2018-03-05] MEDS ORDERED: ASPI-612 PO (11:26)
--- NOTE | 2018-03-05 11:27 | DISCH ---
DISCHARGE DISCHARGE INFORMATION: DISCHARGE DATE: Mar 05, 2018 FINAL DIAGNOSIS Problems Medical Problems: (1) Acute kidney injury Status: Acute (2) Congestive heart failure Status: Acute (3) Hyponatremia Status: Acute (4) NSTEMI (non-ST elevated myocardial infarction) Status: Acute (5) Type 2 diabetes mellitus with hyperglycemia Status: Acute CONDITION ON DISCHARGE: Stable CODE STATUS: Code Status: DNR/DNI POST DISCHARGE ORDERS: ACTIVITY ORDERS: Activity as tolerated WEIGHT BEARING STATUS: Partial weight bearing DIET AFTER DISCHARGE: ADA WOUND/INCISION CARE: Change dressing CHECKS AFTER DISCHARGE: CHECKS AFTER DISCHARGE: Check blood press - daily, Check blood sugar, ac/hs TREATMENT/EQUIPMENT ORDERS: ADAPTIVE EQUIPMENT NEEDED: Four wheeled walker RESPIRATORY EQUIPMENT NEEDED: Oxygen Physical Therapy For: Evalulation/Treatment Occupational Therapy For: Evaluation/Treatment DISCHARGE MEDICATIONS: Home Meds Active Scripts Insulin Lispro (HUMALOG) 100 Unit/1 Ml Insuln.pen, 0 UNITS SQ TIDWMEALS for DM for 30 Days, #30 EACH Prov:KRUNAL PARDO MD 03/05/18 Insulin Lispro (HUMALOG) 100 Unit/1 Ml Insuln.pen, 8 UNITS SQ TIDWMEALS for DM for 30 Days, #30 EACH Prov:KRUNAL PARDO MD 03/05/18 Insulin Glargine,Hum.rec.anlog (LANTUS SOLOSTAR) 100 Unit/1 Ml Insuln.pen, 12 UNITS SQ QHS for DM for 30 Days, #30 EACH Prov:KRUNAL PARDO MD 03/05/18 [Pantoprazole] 40 MG TABLET. No Conflict Check, 40 MG PO DAILYAC Prov:KRUNAL PARDO MD 03/05/18 Ondansetron Hcl/Pf (ONDANSETRON HCL 4 MG/2 ML VIAL) 4 Mg/2 Ml Vial, 4 MG IV PRN Q6HRS PRN for NAUSEA/VOMITING for 30 Days, #30 EACH Prov:KRUNAL PARDO MD 03/05/18 Hydrocodone Bit/Acetaminophen (HYDROCODONE-APAP 5-325 ) 1 Tab Tablet, 1 TAB PO PRN Q4HRS PRN for moderate pain for 6 Days, #18 TAB Prov:KRUNAL PARDO MD 03/05/18 Aspirin (ASPIRIN EC) 81 Mg Tablet.dr, 81 MG PO DAILYWBKFT for CAD for 30 Days, # 30 TAB.SR Prov:KRUNAL PARDO MD 03/05/18 Vancomycin Hcl (VANCOMYCIN HCL) 1 Gm Vial, 1 EACH MC 1X for pacer infection for 21 Days, #21 EACH Prov:KRUNAL PARDO MD 03/05/18 Albuterol Sulfate (PROAIR HFA INHALER) 8.5 Gm Hfa.aer.ad, 1 PUFF INH PRN Q6HRS PRN for SHORTNESS OF BREATH, #1 INHALER 0 Refills Prov:SILVER BLAKELY MD 08/29/15 Atenolol (ATENOLOL) 25 Mg Tablet, 25 MG PO DAILY, #30 TAB 1 Refill Prov:SANJIV DAVIS MD 08/16/15 Discontinued Reported Medications Hydrochlorothiazide (HYDROCHLOROTHIAZIDE TABLET ) 25 Mg Tablet, 1 TAB PO DAILY for htn, #30 TAB 5 Refills 08/12/15 Discontinued Scripts Glipizide (GLIPIZIDE ER) 5 Mg Tab.er.24, 10 MG PO BIDWMEALS for 30 Days Prov:SILVER BLAKELY MD 08/29/15 KRUNAL PARDO MD Mar 05, 2018 11:27
== END 2018-03-05 11:30 | disposition short-term general hospital (02) | DRG 280 ==
LOC: ER 10:30 → 1 WEST ICU 14:00
PROVIDERS: ADMIT Internal Medicine; ATTEND Internal Medicine
DX: T82.7XXA Infection and inflammatory reaction due to other cardiac and vascular devices, implants and grafts, initial encounter (principal); E11.00 Type 2 diabetes mellitus with hyperosmolarity without nonketotic hyperglycemic-hyperosmolar coma (NKHHC); I21.4 Non-ST elevation (NSTEMI) myocardial infarction; A41.9 Sepsis, unspecified organism; E43 Unspecified severe protein-calorie malnutrition; G93.41 Metabolic encephalopathy; I50.43 Acute on chronic combined systolic (congestive) and diastolic (congestive) heart failure; N17.0 Acute kidney failure with tubular necrosis; R65.20 Severe sepsis without septic shock; E87.1 Hypo-osmolality and hyponatremia; B96.89 Other specified bacterial agents as the cause of diseases classified elsewhere; E87.5 Hyperkalemia; F03.90 Unspecified dementia, unspecified severity, without behavioral disturbance, psychotic disturbance, mood disturbance, and anxiety; F32.9 Major depressive disorder, single episode, unspecified; I07.1 Rheumatic tricuspid insufficiency; I11.0 Hypertensive heart disease with heart failure; I25.10 Atherosclerotic heart disease of native coronary artery without angina pectoris; I27.20 Pulmonary hypertension, unspecified; K57.90 Diverticulosis of intestine, part unspecified, without perforation or abscess without bleeding; M20.42 Other hammer toe(s) (acquired), left foot; Y83.1 Surgical operation with implant of artificial internal device as the cause of abnormal reaction of the patient, or of later complication, without mention of misadventure at the time of the procedure; Z90.49 Acquired absence of other specified parts of digestive tract; Z82.49 Family history of ischemic heart disease and other diseases of the circulatory system; Z90.710 Acquired absence of both cervix and uterus; Z95.0 Presence of cardiac pacemaker; F41.9 Anxiety disorder, unspecified; M19.90 Unspecified osteoarthritis, unspecified site; Z98.51 Tubal ligation status; Z86.14 Personal history of Methicillin resistant Staphylococcus aureus infection; Z88.8 Allergy status to other drugs, medicaments and biological substances
CPT/HCPCS: 36415; 71045; 74176; 80048; 80053; 80061; 81001; 82550; 82805; 82962; 83036; 83605; 83735; 83880; 84145; 84484; 85007; 85025; 85027; 85520; 87040; 87186; 87205; 93005; 93306; 93880; 93925; 94640; 96361; 96365; 96368; 96375; J1644; J1815; J1940; J2405; J2543; J3370; J7030; J7050; 92610; 99285-25; G0378